=== PATIENT | female | born 1950 | race Caucasian/White ===

== ENCOUNTER → 2017-09-11 09:26 | Outpatient (CLI) | payer BC, SELFPAY ==
[2017-09-11 11:40] LABS: Alanine Aminotransferase 30 IU/L (9-52); Aspartate Aminotransferase 29 IU/L (14-36); Cholesterol 222 mg/dL (140-199); Triglycerides 56 mg/dL (35-150)
[2017-09-11 11:48] LABS: HDL Cholesterol 121 mg/dL (40-60); LDL Cholesterol Calculated 90 mg/dL (<100)
== END ==
PROVIDERS: PCP Internal Medicine; Visit Provider Internal Medicine
DX: E78.5 Hyperlipidemia, unspecified (principal)
CPT/HCPCS: 36415; 80061; 84450; 84460

== ENCOUNTER 2017-10-30 16:30 | Emergency (ER) | payer OTHER, SELFPAY ==
[2017-10-30] VITALS (7 sets, daily range): BP systolic 143–170; BP diastolic 88–102; PULSE 74–141; RESP 15–21; TEMP 36.9; O2SAT 96–100
--- NOTE | 2017-10-30 16:54 | DI.RAD.S_ITS ---
PROCEDURE: XR CHEST 2V INDICATIONS: shortness of breath TECHNIQUE: 2 views of the chest were acquired. COMPARISON: None. FINDINGS: Surgical changes and devices: None. Lungs and pleura: No pleural effusions or pneumothorax. Lungs are clear. Mediastinum: Mediastinal contours are normal. Heart size is normal. Bones and chest wall: No suspicious bony abnormalities. Soft tissues appear unremarkable. IMPRESSION: No radiographic evidence of acute cardiopulmonary pathology. Dictated by: Nghia Avalos M.D. on 10/30/2017 at 17:26 Approved by: Nghia Avalos M.D. on 10/30/2017 at 17:26
[2017-10-30 17:19] LABS: Add Manual Diff / Slide Review NO; Basophils Percent Auto 1.9 % (0-2); Eosinophils Percent Auto 2.3 % (2-4); Hematocrit 38.9 % (36-46); Lymphocytes Percent Auto 23.2 % (25-40); Mean Corpuscular HGB Conc 33.4 % (30-36); Mean Corpuscular Hemoglobin 30.8 PG (26-34); Mean Corpuscular Volume 92.4 fL (80-100); Neutrophils Absolute Auto 3400 /uL (3000-5900); Neutrophils Percent Auto 61.6 % (50-75); Platelet Count 211 X10^3/uL (150-400); Red Blood Cell Count 4.22 X10^6/uL (4.0-5.2); Red Cell Distribution Width 13.5 % (11.6-14.8); White Blood Cell Count 5.5 X10^3/uL (4.5-11.0)
[2017-10-30 17:20] LABS: Alanine Aminotransferase 24 IU/L (9-52); Albumin 4.6 g/dL (3.5-5.0); Albumin Globulin Ratio 1.6 (1.0-2.8); Alkaline Phosphatase 69 U/L (38-126); Aspartate Aminotransferase 26 IU/L (14-36); Bilirubin Total 0.2 mg/dL (0.2-1.3); Blood Urea Nitrogen 21 mg/dL (7-17); Calcium 9.4 mg/dL (8.4-10.2); Carbon Dioxide 24 mmol/L (22-32); Chloride 104 mmol/L (98-107); Estimated Glomerular Filt Rate > 60.0 mL/min (>60); Globulin 2.9 g/dL (1.7-4.1); Glucose 107 mg/dL (80-110); HEMOLYSIS < 15 (0-50); Potassium 4.2 mmol/L (3.4-5.1); Sodium 139 mmol/L (137-145); Total Protein 7.5 g/dL (6.3-8.2)
--- NOTE | 2017-10-30 17:20 | PC.NURSE ---
Pt converted to NSR with rate of 92. BP improved to 155/89. Dr jacobs in room to evaluate.
[2017-10-30 17:43] LABS: Magnesium 1.9 mg/dL (1.6-2.3)
[2017-10-30 17:52] LABS: Lactate (Lactic Acid) 1.5 mmol/L (0.7-2.1)
--- NOTE | 2017-10-30 17:53 | ED_ITS ---
HPI - Arrhythmia/Palpitations General Chief Complaint: Arrhythmia/Palpitations Stated Complaint: STATES HEART AFIB AND ELEVATED BP Time Seen by Provider: 10/30/17 16:40 Source: patient and family Mode of arrival: ambulatory Limitations: no limitations History of Present Illness HPI narrative: 67-year-old female with history of hypertension and paroxysmal AFib presents to the emergency department with chief complaint hypertension and a rapid heart rate. She is short of breath but denies any chest pain. She is not dizzy nor weak or lightheaded. She denies any changes in her medications nor excessive Related Data Home Medications Medication Instructions Recorded Confirmed atorvastatin 20 mg PO DAILY 10/30/17 10/30/17 carisoprodol 1 tab PO TID PRN 10/30/17 10/30/17 cetirizine [Zyrtec] 1 tab PO DAILY 10/30/17 10/30/17 cholecalciferol (vitamin D3) 1,000 unit PO DAILY 10/30/17 10/30/17 [Vitamin D3] coenzyme Q10 [CoQ-10] 100 mg PO DAILY 10/30/17 10/30/17 fluticasone 1 spray INTRANASAL DAILY PRN 10/30/17 10/30/17 gabapentin 1 cap PO TID 10/30/17 10/30/17 ibuprofen 800 mg PO TID PRN 10/30/17 10/30/17 lifitegrast [Xiidra] 1 drp OPHTHALMIC (EYE) Q12H 10/30/17 10/30/17 losartan 25 mg PO DAILY 10/30/17 10/30/17 meloxicam 1 tab PO DAILY 10/30/17 10/30/17 metoprolol succinate 1 tab PO DAILY 10/30/17 10/30/17 omega 5-nhx-lwf-fish oil [Fish Oil] 1,000 mg PO DAILY 10/30/17 10/30/17 zolpidem 10 mg PO BEDTIME 10/30/17 10/30/17 Allergies Allergy/AdvReac Type Severity Reaction Status Date / Time No Known Drug Allergies Allergy Verified 10/30/17 17:46 Review of Systems Review of Systems All systems reviewed & are unremarkable except as noted in HPI and below Constitutional Denies chills, Denies fever(s), Denies lethargy and Denies weakness Eyes Denies change in vision, Denies eye discharge, Denies irritation and Denies loss of vision ENT Ears, Nose, Mouth, and Throat: Denies change in voice, Denies neck pain and Denies sore throat Cardiovascular Reports chest pain, Reports irregular heart rhythm, Denies lightheadedness, Reports palpitations, Reports dyspnea, Denies dyspnea on exertion and Denies orthopnea Respiratory Denies cough, Reports dyspnea, Denies dyspnea on exertion and Denies wheezing Gastrointestinal Gastrointestinal: Denies abdominal pain, Denies change in bowel habits, Denies diarrhea, Denies nausea and Denies vomiting Genitourinary Denies hematuria, Denies flank pain, Denies urinary incontinence and Denies urinary urgency Musculoskeletal Denies neck pain Integumentary/Breasts Denies pruritus, Denies erythema, Denies rash and Denies wounds Neurologic Denies confusion, Denies loss of vision and Denies weakness Psychiatric Denies anxiety, Denies confusion, Denies depression, Denies homicidal ideation and Denies suicidal ideation Endocrine Reports palpitations Hematologic/Lymphatic Denies easy bruising Allergic/Immunologic Denies wheezing Exam Narrative Exam Narrative: GENERAL: This is a well-nourished, well-developed patient, in mild distress. HEAD: Atraumatic. Normocephalic. No temporal or scalp tenderness. EYES: Pupils equal round and reactive. Extraocular motions intact. No scleral icterus. No injection or drainage. ENT: Nose without bleeding, purulent drainage or septal hematoma. Throat without erythema, tonsillar hypertrophy or exudate. Uvula midline. Airway patent. NECK: Trachea midline. No JVD or lymphadenopathy. Supple, nontender, no meningeal signs. CARDIOVASCULAR: Tachycardic and irregular rhythm without murmurs, gallops, or rubs. RESPIRATORY: Clear to auscultation. Breath sounds equal bilaterally. No wheezes , rales, or rhonchi. GASTROINTESTINAL: Abdomen soft, non-tender, nondistended. No hepato-splenomegaly , or palpable masses. No guarding. EXTREMITIES: No clubbing, cyanosis, or edema. No joint tenderness, effusion, or edema noted. BACK: Nontender without deformity or crepitance. No flank tenderness. NEURO: AOx3. SKIN: No rash or erythema. Initial Vital Signs Initial Vital Signs: Vital Signs Temperature 98.4 F 10/30/17 16:41 Pulse Rate 141 H 10/30/17 16:41 Respiratory Rate 15 10/30/17 16:41 Blood Pressure 160/102 H 10/30/17 16:41 Pulse Oximetry 99 10/30/17 16:41 Course Orders Ordered: ED Orders 10/30/17 16:49 Complete Blood Count AUTO DIFF Stat Comprehensive Metabolic Panel Stat Magnesium Stat Thyroid Stimulating Hormone Stat 10/30/17 16:54 XR chest 2V Stat EKG-12 Lead Stat 10/30/17 17:19 Lactate (Lactic Acid) Stat Discontinued Medications Sodium Chloride (Normal Saline 0.9%) 1,000 mls @ 150 mls/hr IV CONT MARIA C Last Admin: 10/30/17 19:29 Dose: Reevaluation(s) Reevaluation #1: Patient had spontaneous conversion of AFib and is now a normal sinus rhythm. Patient's symptoms have all completely resolved Consultations Consultation #1: Discussion with patient's primary care provider regarding alterations in medications, Dr. dash recommends increasing metoprolol from 100 to 150 mg daily and calling for follow-up for the office Vital Signs - 8 hr 10/30/17 16:41 10/30/17 17:04 10/30/17 17:20 Temperature 98.4 F Pulse Rate 141 H 120 H 88 Respiratory Rate 15 17 17 Blood Pressure 160/102 H Blood Pressure [Right Arm] 145/94 H 155/92 H Pulse Oximetry 99 100 100 10/30/17 18:01 10/30/17 18:30 10/30/17 19:07 Temperature Pulse Rate 85 77 74 Respiratory Rate 16 21 20 Blood Pressure Blood Pressure [Right Arm] 143/91 H 155/88 H 170/88 H Pulse Oximetry 96 98 97 10/30/17 19:21 Temperature Pulse Rate 82 Respiratory Rate 18 Blood Pressure Blood Pressure [Right Arm] 170/88 H Pulse Oximetry 100 MDM - Arrhythmia/Palpitations Differential Diagnosis Differential diagnosis: Likely palpitations, anxiety, sinus tachycardia, artial fibrillation and artial flutter Medical Records Attestation: I reviewed the patient's medical records. Lab Data Attestation: I reviewed the patient's lab results. Result diagrams: 10/30/17 16:49 10/30/17 16:49 Lab Results 10/30/17 10/30/17 10/30/17 Range/Units 16:49 16:49 16:49 WBC 5.5 (4.5-11.0) X10^3/uL RBC 4.22 (4.0-5.2) X10^6/uL Hgb 13.0 (12.0-16.0) g/dL Hct 38.9 (36-46) % MCV 92.4 (80-100) fL MCH 30.8 (26-34) PG MCHC 33.4 (30-36) % RDW 13.5 (11.6-14.8) % Plt Count 211 (150-400) X10^3/uL Neut % (Auto) 61.6 (50-75) % Lymph % (Auto) 23.2 L (25-40) % [place] % (Auto) 11.0 (3-14) % Eos % (Auto) 2.3 (2-4) % Baso % (Auto) 1.9 (0-2) % Neut # (Auto) 3400 (6403-2970) /uL Sodium 139 (137-145) mmol/L Potassium 4.2 (3.4-5.1) mmol/L Chloride 104 (98-107) mmol/L Carbon Dioxide 24 (22-32) mmol/L BUN 21 H (7-17) mg/dL Creatinine 0.60 (0.52-1.04) mg/dL Estimated GFR > 60.0 (>60) mL/min BUN/Creatinine Ratio 35.0 H (6-22) Glucose 107 (80-110) mg/dL Lactate (0.7-2.1) mmol/L Calcium 9.4 (8.4-10.2) mg/dL Magnesium 1.9 (1.6-2.3) mg/dL Total Bilirubin 0.2 (0.2-1.3) mg/dL AST 26 (14-36) IU/L ALT 24 (9-52) IU/L Alkaline Phosphatase 69 (38-126) U/L Total Protein 7.5 (6.3-8.2) g/dL Albumin 4.6 (3.5-5.0) g/dL Globulin 2.9 (1.7-4.1) g/dL Albumin/Globulin Ratio 1.6 (1.0-2.8) TSH Cancelled 10/30/17 10/30/17 Range/Units 16:49 17:19 WBC (4.5-11.0) X10^3/uL RBC (4.0-5.2) X10^6/uL Hgb (12.0-16.0) g/dL Hct (36-46) % MCV (80-100) fL MCH (26-34) PG MCHC (30-36) % RDW (11.6-14.8) % Plt Count (150-400) X10^3/uL Neut % (Auto) (50-75) % Lymph % (Auto) (25-40) % Providence % (Auto) (3-14) % Eos % (Auto) (2-4) % Baso % (Auto) (0-2) % Neut # (Auto) (7477-1726) /uL Sodium (137-145) mmol/L Potassium (3.4-5.1) mmol/L Chloride (98-107) mmol/L Carbon Dioxide (22-32) mmol/L BUN (7-17) mg/dL Creatinine (0.52-1.04) mg/dL Estimated GFR (>60) mL/min BUN/Creatinine Ratio (6-22) Glucose (80-110) mg/dL Lactate 1.5 (0.7-2.1) mmol/L Calcium (8.4-10.2) mg/dL Magnesium (1.6-2.3) mg/dL Total Bilirubin (0.2-1.3) mg/dL AST (14-36) IU/L ALT (9-52) IU/L Alkaline Phosphatase (38-126) U/L Total Protein (6.3-8.2) g/dL Albumin (3.5-5.0) g/dL Globulin (1.7-4.1) g/dL Albumin/Globulin Ratio (1.0-2.8) TSH 1.83 Imaging Data Chest x-ray: Radiologist's impression: PROCEDURE: XR CHEST 2V INDICATIONS: shortness of breath TECHNIQUE: 2 views of the chest were acquired. COMPARISON: None. FINDINGS: Surgical changes and devices: None. Lungs and pleura: No pleural effusions or pneumothorax. Lungs are clear. Mediastinum: Mediastinal contours are normal. Heart size is normal. Bones and chest wall: No suspicious bony abnormalities. Soft tissues appear unremarkable. IMPRESSION: No radiographic evidence of acute cardiopulmonary pathology. Dictated by: Nghia Avalos M.D. on 10/30/2017 at 17:26 Approved by: Nghia Avalos M.D. on 10/30/2017 at 17:26 ECG Data Attestation: I personally reviewed and interpreted this ECG as follows: Prior ECG tracings: not available for review Interpretation: EKG 1: Rapid AFib versus 2-1 flutter and the 140s with ST depressions. Preparations for cardioversion in place EKG 2: Normal sinus rhythm in the 70s. Ischemic changes have resolved Discharge Plan Departure Patient Disposition: Home, Self-Care Clinical Impression: Atrial fibrillation Discharge Date/Time: 10/30/17 19:29 Interventions: ED Discharge Assessment Last Done: 10/30/17 19:29 Instructions: DI for Atrial Fibrillation Activity Restrictions/Additional Instructions: *You have been diagnosed with [ hypertension and rapid atrial fibrillation ] *What to do: *Take medications as directed: Please increase her metoprolol from 100 mg daily to 150 mg daily. You will need to break 100 tablets in half. *Follow up with your primary care provider in 2-3 days, call for an appointment. Let them know you were seen in the Emergency Department and that we ask that you be seen in follow up *Return to ER if you should have any new, worsening or concerning symptoms , such as [ increasing chest pain, rapid rate, dizziness or lightheadedness] Prescriptions: No Action carisoprodol 350 mg tablet 1 tab PO TID PRN (Reason: Pain, Moderate) RF: 0 atorvastatin 20 mg tablet 20 mg PO DAILY RF: 0 ibuprofen 800 mg tablet 800 mg PO TID PRN (Reason: Pain, Moderate) RF: 0 metoprolol succinate 50 mg tablet extended release 24 hr 1 tab PO DAILY RF: 0 meloxicam 15 mg tablet 1 tab PO DAILY RF: 0 losartan 25 mg tablet 25 mg PO DAILY RF: 0 gabapentin 300 mg capsule 1 cap PO TID RF: 0 zolpidem 10 mg tablet 10 mg PO BEDTIME RF: 0 fluticasone 50 mcg/actuation spray,suspension 1 spray Intranasal DAILY PRN (Reason: Congestion) RF: 0 lifitegrast [Xiidra] 5 % dropperette 1 drp ophthalmic (eye) Q12H RF: 0 cetirizine [Zyrtec] 10 mg Tablet 1 tab PO DAILY RF: 0 cholecalciferol (vitamin D3) [Vitamin D3] 1,000 unit Capsule 1,000 unit PO DAILY RF: 0 coenzyme Q10 [CoQ-10] 100 mg Capsule 100 mg PO DAILY RF: 0 omega 5-jrx-nxl-fish oil [Fish Oil] 1,000 mg (120 mg-180 mg) Capsule 1,000 mg PO DAILY RF: 0 Referrals: Dolores Dash MD [Primary Care Provider] -
[2017-10-30 18:23] LABS: Thyroid Stimulating Hormone 1.83 uIU/mL (0.47-4.68)
== END 2017-10-30 19:29 | disposition home or self-care (01) ==
PROVIDERS: Emergency Provider Emergency Medicine; PCP Internal Medicine
DX: I48.91 Unspecified atrial fibrillation (principal)
CPT/HCPCS: 36591; 71046; 80053; 81003; 83605; 83735; 84443; 85025; 93005; 93041; 99283; 99285

== ENCOUNTER → 2017-12-12 08:23 | Outpatient (CLI) | payer OTHER, SELFPAY ==
--- NOTE | 2017-12-12 | DI.ECHO.S_ITS ---
[facility]---------+ [facility] +---------+ : : [address] [place] : : : : [id number] : : : : Phone: [phone]+ Echocardiogram Report + + :Name: JAMIE SALGADO Study Date: 12/12/2017 Height: 67 in : :[facility] Exam Location: [facility] Weight: 146 lb : : Gender: Female BSA: 1.8 m2 : :: 1950 Age: 67 yrs BP: 110/80 mmHg: :Reason For Study: TACHYCARDIA : :Ordering Physician: Geetha : :Hardy Performed By: Nathalia Tenorio : :Referring: GEETHA SMITH : + + Interpretation Summary There is mild concentric left ventricular hypertrophy. The left ventricular ejection fraction is normal. The ejection fraction is estimated to be 55-60%. There are no focal wall motion abnormalities. Assessment of diastolic parameters indicates a relaxation abnormality of the left ventricle, consistent with normal filling pressures. The right ventricle is normal in size and function. The right ventricular systolic pressure is estimated at least 28 mmHg assuming a right atrial pressure of 8 mm Hg. The left atrium is moderately dilated. There is mild mitral regurgitation. The aortic root is normal size. Procedure: A two-dimensional transthoracic echocardiogram with color flow and Doppler was performed. The study quality was technically adequate. There is no prior echocardiogram noted for this patient. The patient was in sinus bradycardia with heart rates between 53 and 66 bpm during the exam. Left Ventricle: The left ventricle is normal in size. There is mild concentric left ventricular hypertrophy. The left ventricular ejection fraction is normal. The ejection fraction is estimated to be 55-60%. There are no focal wall motion abnormalities. Assessment of diastolic parameters indicates a relaxation abnormality of the left ventricle, consistent with normal filling pressures. Right Ventricle: The right ventricle is normal in size and function. Atria: The left atrium is moderately dilated. Right atrial size is normal. There is no Doppler evidence for an atrial septal defect. Mitral Valve: The mitral valve is normal. There is mild mitral regurgitation. Aortic Valve: The aortic valve is normal in structure and function. There is trace aortic regurgitation. Tricuspid Valve: The tricuspid valve is normal. There is a trace or physiologic amount of tricuspid regurgitation. The right ventricular systolic pressure is estimated at least 28 mmHg assuming a right atrial pressure of 8 mm Hg. Pulmonic Valve: The pulmonic valve leaflets are thin and pliable; valve motion is normal. There is trace pulmonic regurgitation. Multiple jets. There is no other significant valvular heart disease. Great Vessels: The aortic root is normal size. The ascending aorta is normal in size. The aortic arch is normal in size. The pulmonary artery is normal size. The IVC is dilated (diameter is greater than 2.1 cm) yet it collapses greater than 50% with a sniff. This suggests a right atrial pressure of 8 mm Hg. Pericardium/ Pleura There is no pericardial effusion. There is no pleural effusion. MMode/2D Measurements & Calculations LVIDd: 4.3 cm LVOT diam: 2.1 cm LVIDs: 2.9 cm Ao root diam: 3.6 cm FS: 32.7 % asc Aorta Diam: 3.4 cm EPSS: 0.21 cm Ao Arch Diam (Prox Trans): 2.6 cm IVSd: 1.3 cm LVPWd: 1.3 cm LV negrete. diameter/BSA (cm/m^2): 2.5 LV sys. diameter/BSA (cm/m^2): 1.6 LA A2 area: 21.7 cm2 RA long axis: 4.8 cm LA A4 area: 24.4 cm2 RA area: 16.3 cm2 LA length (vol): 5.8 cm RA vol: 47.2 ml LA vol: 77.3 ml RA : 26.7 ml/m2 LA vol index: 43.7 ml/m2 IVC diam: 2.3 cm RVD1 (basal): 3.7 cm RVD2 (mid): 2.6 cm TAPSE: 1.5 cm Doppler Measurements & Calculations Ao V2 max: 82.8 cm/sec LVOT Max Yusuf: 78.3 cm/sec Ao V2 mean: 53.6 cm/sec LV V1 max P.5 mmHg Ao max P.7 mmHg LV V1 VTI: 14.5 cm Ao mean P.3 mmHg POLO(I,D): 2.9 cm2 Ao V2 VTI: 17.2 cm POLO(V,D): 3.3 cm2 sev ratio: 0.84 POLO indexed to BSA (cm^2/m^2): 1.6 MV E max yusuf: 66.6 cm/sec TR max yusuf: 223.4 cm/sec MV A max yusuf: 82.6 cm/sec TR max P.0 mmHg MV E/A: 0.81 PA V2 max: 59.9 cm/sec Med Peak E' Yusuf: 4.8 cm/sec PA V2 mean: 42.1 cm/sec E/E' med: 13.8 PA mean P.81 mmHg Lat Peak E' Yusuf: 5.1 cm/sec PA pr(Accel): 11.6 mmHg E/E' lat: 13.2 E/e' average: 13.5 MV dec time: 0.15 sec MV P1/2t: 45.6 msec MV P1/2t max yusuf: 66.9 cm/sec MVA(P1/2t): 4.8 cm2 Reading Physician:ANUSHKA
== END ==
PROVIDERS: PCP Internal Medicine; Visit Provider Internal Medicine
DX: I34.0 Nonrheumatic mitral (valve) insufficiency (principal); R00.0 Tachycardia, unspecified
CPT/HCPCS: 93306

== ENCOUNTER → 2018-10-01 13:35 | Outpatient (CLI) | payer OTHER, SELFPAY | PROVIDERS: PCP Internal Medicine; Visit Provider Internal Medicine | DX: M81.0 Age-related osteoporosis without current pathological fracture (principal); Z78.0 Asymptomatic menopausal state | CPT/HCPCS: 77080 ==

== ENCOUNTER → 2018-10-08 09:47 | Outpatient (CLI) | payer OTHER, SELFPAY ==
[2018-10-08 12:28] LABS: Vitamin D 25 Hydroxy (D3) 42.3 ng/mL (30.0-100.0)
[2018-10-08 17:51] LABS: Alanine Aminotransferase 30 IU/L (9-52); Aspartate Aminotransferase 33 IU/L (14-36); Blood Urea Nitrogen 20 mg/dL (7-17); Calcium 9.6 mg/dL (8.4-10.2); Carbon Dioxide 27 mmol/L (22-32); Chloride 104 mmol/L (98-107); Cholesterol 226 mg/dL (140-199); Estimated Glomerular Filt Rate > 60.0 mL/min (>60); Glucose 104 mg/dL (80-110); HDL Cholesterol 83 mg/dL (40-60); HEMOLYSIS < 15 (0-50); LDL Cholesterol Calculated 121 mg/dL (<100); Potassium 4.2 mmol/L (3.4-5.1); Sodium 141 mmol/L (137-145); Triglycerides 112 mg/dL (35-150)
== END ==
PROVIDERS: PCP Internal Medicine; Visit Provider Internal Medicine
DX: E78.5 Hyperlipidemia, unspecified (principal); M81.0 Age-related osteoporosis without current pathological fracture; Z00.00 Encounter for general adult medical examination without abnormal findings
CPT/HCPCS: 36415; 80048; 80061; 82306; 84450; 84460

== ENCOUNTER → 2018-10-09 16:19 | Outpatient (CLI) | payer OTHER, SELFPAY ==
--- NOTE | 2018-10-09 16:23 | DI.MG.S_ITS ---
BILATERAL DIGITAL SCREENING MAMMOGRAM 3D/2D WITH CAD: 10/09/2018 CLINICAL: Routine screening. Comparison is made to exams dated: 03/21/2016 mammogram, 03/19/2014 mammogram, and 04/13/2011 mammogram - [facility]. The tissue of both breasts is predominantly fatty. Current study was also evaluated with a Computer Aided Detection (CAD) system. No significant masses, calcifications, or other findings are seen in either breast. There has been no significant interval change. IMPRESSION: NEGATIVE There is no mammographic evidence of malignancy. A 1 year screening mammogram is recommended. This exam was interpreted at Station ID: [id number]. NOTE: For mammograms, a report in lay terms will be sent to the patient. Approximately 15% of breast malignancies will not be visualized mammographically. In the management of a palpable breast mass, a negative mammogram must not discourage biopsy of a clinically suspicious lesion. Electronically Signed By: Guru singer/adi:10/09/2018 17:28:41 letter sent: Normal Exam ACR BI-RADS Category 1: Negative [id number]
== END ==
PROVIDERS: PCP Internal Medicine; Visit Provider Internal Medicine
DX: Z12.31 Encounter for screening mammogram for malignant neoplasm of breast (principal)
CPT/HCPCS: 77063; 77067

== ENCOUNTER → 2018-10-18 12:10 | Outpatient (CLI) | payer OTHER, SELFPAY ==
[2018-10-18 12:37] LABS: BUN Creatinine Ratio 24.3 (6-22); Blood Urea Nitrogen 17 mg/dL (7-17); Estimated Glomerular Filt Rate > 60.0 mL/min (>60)
== END ==
PROVIDERS: PCP Internal Medicine; Visit Provider Internal Medicine
DX: I10 Essential (primary) hypertension (principal)
CPT/HCPCS: 36415; 82565; 84520

== ENCOUNTER → 2018-11-05 14:55 | Oncology outpatient (ONC) | payer OTHER, SELFPAY ==
[2018-11-05] MEDS: ZOLEDRONIC ACID 5 MG in SODIUM CHLORIDE 0.9% 100 ML 318.75 ML IV (15:37)
[2018-11-05 15:56] VITALS: BP 218/100; PULSE 71; RESP 20; TEMP 36.8; O2SAT 100
[2018-11-05 16:15] VITALS: BP 196/96
--- NOTE | 2018-11-05 16:33 | PC.NURSE ---
Pt had elevated BP 198/98, pt reported missing a dose of her prescribed HTN medication. Pt was instructed to take Losartan and Metoprolol as prescribed when she got home. pt reported having blurred vision earlier in the day. Pt was educated on when to seek emergent medical attention including if symptoms return, dizziness, headache, blurred vision, pt verbalized understanding.
== END ==
LOC: ONC 14:55
PROVIDERS: PCP Internal Medicine; Visit Provider Internal Medicine
DX: M81.0 Age-related osteoporosis without current pathological fracture (principal)
CPT/HCPCS: 96365; J3489

== ENCOUNTER → 2018-11-12 12:00 | Outpatient (CLI) | payer OTHER, SELFPAY ==
[2018-11-12 13:19] LABS: BUN Creatinine Ratio 21.4 (6-22); Blood Urea Nitrogen 15 mg/dL (7-17); Calcium 9.7 mg/dL (8.4-10.2); Carbon Dioxide 29 mmol/L (22-32); Chloride 100 mmol/L (98-107); Estimated Glomerular Filt Rate > 60.0 mL/min (>60); Glucose 175 mg/dL (80-110); HEMOLYSIS < 15 (0-50); Potassium 4.2 mmol/L (3.4-5.1); Sodium 139 mmol/L (137-145)
== END ==
PROVIDERS: Family Provider Internal Medicine; PCP Internal Medicine; Visit Provider Hospitalist
DX: I10 Essential (primary) hypertension (principal)
CPT/HCPCS: 36415; 80048

== ENCOUNTER → 2018-11-29 10:55 | Outpatient (CLI) | payer OTHER, SELFPAY ==
[2018-11-29 15:31] LABS: Collection Time Urine 24 Hours; Creatinine 24 Hour Urine 1226 mg/day (800-1800); Creatinine Urine Random 87.6 mg/dL; Total Volume Urine 1400 mL
[2018-12-13 08:47] LABS: Total Volume 1400
[2018-12-13 10:33] LABS: Total Volume: 1400
== END ==
PROVIDERS: Family Provider Internal Medicine; PCP Internal Medicine; Visit Provider Physician Assistant
DX: I10 Essential (primary) hypertension (principal)
CPT/HCPCS: 82384; 82570; 83835

== ENCOUNTER → 2019-06-27 10:11 | Outpatient (CLI) | payer OTHER, SELFPAY ==
[2019-06-27 12:22] LABS: Alanine Aminotransferase 24 IU/L (<35); Albumin 4.3 g/dL (3.5-5.0); Albumin Globulin Ratio 1.3 (1.0-2.8); Alkaline Phosphatase 57 U/L (38-126); Aspartate Aminotransferase 30 IU/L (14-36); BUN Creatinine Ratio 21.5 (6-22); Bilirubin Total 0.5 mg/dL (0.2-1.3); Blood Urea Nitrogen 17 mg/dL (7-17); Calcium 9.1 mg/dL (8.4-10.2); Carbon Dioxide 30 mmol/L (22-32); Chloride 102 mmol/L (98-107); Cholesterol 199 mg/dL (140-199); Estimated Glomerular Filt Rate > 60.0 mL/min (>60); Globulin 3.3 g/dL (1.7-4.1); Glucose 101 mg/dL (80-110); HDL Cholesterol 86 mg/dL (40-60); HEMOLYSIS < 15 (0-50); LDL Cholesterol Calculated 85 mg/dL (<100); Potassium 4.1 mmol/L (3.4-5.1); Sodium 137 mmol/L (137-145); Total Protein 7.6 g/dL (6.3-8.2); Triglycerides 142 mg/dL (35-150)
== END ==
PROVIDERS: Family Provider Internal Medicine; PCP Internal Medicine; Referring Provider Internal Medicine; Visit Provider Internal Medicine
DX: I10 Essential (primary) hypertension (principal)
CPT/HCPCS: 36415; 80053; 80061

== ENCOUNTER → 2019-09-26 11:19 | Outpatient (CLI) | payer OTHER, SELFPAY ==
[2019-09-27 10:14] LABS: COVID19 Sendout NOT DETECTED (Not Detect)
== END ==
PROVIDERS: Family Provider Internal Medicine; PCP Internal Medicine; Visit Provider Physician Assistant
DX: Z01.812 Encounter for preprocedural laboratory examination (principal)
CPT/HCPCS: 87635

== ENCOUNTER 2019-09-29 06:41 | Day surgery (SDC) | payer OTHER, SELFPAY ==
[2019-09-24 08:02] VITALS: BMI 23.3
[2019-09-29] VITALS (38 sets, daily range): BP systolic 93–163; BP diastolic 38–84; PULSE 55–89; RESP 11–20; TEMP 35.9–36.9; O2SAT 90–100; BMI 22.9
[2019-09-29] MEDS: LACTATED RINGERS 1,000 ML 42 ML IV ×2 (07:29→13:44)
--- NOTE | 2019-09-29 08:15 | PM.PREOP ---
Pre-operative Note COVID-19 COVID-19 status: Negative Result date/Date tested (Pos, Neg/Pending): 09/26/19 Interval Note History & Physical reviewed/Exam performed by Physician: Yes Changes to H&P: No
[2019-09-29] MEDS: CEFAZOLIN 2 GM/100 ML FROZ.PIGGY IV ×2 (08:34→14:20)
--- NOTE | 2019-09-29 08:47 | SUR.OPER ---
Lithotomy on padded OR bed, head on pillow, arms secured on padded arm boards at <90 degrees abduction. Legs secured in padded yellow fins stirrups.
[2019-09-29] MEDS: BUPIVACAINE 0.5% W/ EPI (PF) 30 ML VIAL 10 ML INJ (08:54)
[2019-09-29] MEDS: ACETAMINOPHEN IV 1,000 MG/100 ML VIAL 400 MG IV (09:08)
--- NOTE | 2019-09-29 09:53 | SUR.OPER ---
Dr. Benz placed Kunz Catheter at 0953. 16 Fr latex
--- NOTE | 2019-09-29 10:21 | PM.OP.1 ---
Operative Date/Time/Diagnoses Date of procedure: 09/29/19 Time of procedure: 10:21 Pre-op diagnosis: Symptomatic cystocele with rectocele and uterine prolapse Post-op diagnosis: same Procedure & Clinicians Procedure: Anterior and posterior repair with sacrospinous ligament fixation Same procedure as scheduled: Yes Indications: Symptomatic cystocele and uterine prolapse Surgeon: Conchis Benz Commissions Coordinator: Lizbeth Carver Click Yes if Unassisted: No Anesthesia Type: General Operative Notes Findings: Uterine prolapse with cystocele and minimal rectocele Closure Type: primary Specimen(s): none sent Applied: catheter (Kunz) and other (Vaginal packing) Estimated Blood Loss (mL): 50 Blood products transfused: none Procedure in detail: Patient was brought to the operating room where she underwent general anesthesia. She was placed in low Yellofin stirrups and prepped and draped in the usual sterile fashion. Warming was in place. 2 g of Ancef were in prior to beginning of the case. Pulsatile stockings were in place and functional. A check system was reviewed with the staff in the room prior to beginning the case. A Kunz catheter was placed. The area of the cystocele and the rectocele was injected with a dilute solution of Marcaine with epinephrine. Incision was made over the cystocele with a scalpel. Dissection was undertaken laterally with sharp and blunt dissection. The cystocele caliber was decreased with a pursestring suture of 2 0 Vicryl. Plicating sutures of 0 Vicryl suture were placed followed by a layer of 2 0 Vicryl plicating sutures. The vaginal incision was repaired with running 2 0 Vicryl suture. Next a wedge-shaped section of tissue was taken out of the posterior fourchette with a scalpel. An incision was made over the rectocele with a scalpel. Dissection was undertaken laterally. 0 Prolene suture with the Capio passer was placed through the uterosacral ligament on the right side and sutured to the underside of the cervix. A 2nd suture of 0 Monodek was also placed through the uterosacral ligament and the underside of the vaginal mucosa on the left. A finger was placed in the rectum to be sure there were no sutures placed through the rectal mucosa. The uterosacral sutures were tightened down. Plication sutures of suture of 2 0 Vicryl. The incision was closed with 2 0 Vicryl suture building up the perineal body. Vaginal packing was placed. Patient went to recovery room in good condition. Complications: none Post-operative Condition: stable Disposition: same day surgery Plan for aftercare: Vaginal packing and Kunz will be removed in 6 hours than patient will be discharged home once documented able to urinate post Kunz removal
[2019-09-29] MEDS: HYDROMORPHONE 2 MG INJ IV ×6 (10:26→16:33)
[2019-09-29] MEDS: fentaNYL 100 MCG/2 ML INJ IV ×2 (10:27→10:35)
--- NOTE | 2019-09-29 10:33 | SUR.PHASEI ---
covering for break relief, pain currently 10/16
--- NOTE | 2019-09-29 10:51 | SUR.PHASEI ---
O2 at 3LNP, desat when dozing. Reported to A Polly, RN
[2019-09-29] MEDS: OXYCODONE IR 5 MG TABLET PO ×2 (11:19→22:26)
--- NOTE | 2019-09-29 11:21 | SUR.PHASEI ---
Gave patient IV and po pain medication for c/o pain. Patient awake and tolerating po. Ale-pad has scant amount of serous drainage.
[2019-09-29] MEDS: LACTATED RINGERS 1,000 ML 100 ML IV ×3 (12:29→17:38)
[2019-09-29] MEDS: HYDROCODONE/ACET 5/325 TABLET 2 TAB PO ×2 (13:22→18:42)
--- NOTE | 2019-09-29 13:32 | PC.NURSE ---
Day shift note: 1215: Received patient from PACU by Toya INFANTE to room 222. Patient awake, alert, and pleasant. VSS upon arrival, on RA, O2 sat 98%. During packing check with Toya INFANTE, noted with blood drainage to pad and linen, noted intermittent trickling from vagina opening. per Toya INFANTE, Dr. Benz notified by message. Upon reassessment, this RN noted continued trickling of bloody drainage and completely soaked pad. No dizziness by patient. VSS. Dr. Benz, called to office by Humble INFANTE, notified regarding clinical status. Dr. Benz at bedside shortly after call. 1330: Patient back to OR by Estrella IFNANTE.
[2019-09-29] MEDS: METOCLOPRAMIDE 10 MG/2 ML INJ IV (13:53)
[2019-09-29] MEDS: FAMOTIDINE 20 MG/50 ML PIGGYBACK 200 MG IV (13:53)
[2019-09-29] MEDS: fentaNYL 100 MCG/2 ML INJ 50 MCG IV (14:02)
--- NOTE | 2019-09-29 14:06 | SUR.HOLD ---
Pt to OPD 2 for surgery, A&O, c/o surgical pain 11/16. Resp unlabored, Rx given, continuous pulse oximeter on prior to IV pain med. Sat 93%, HR 65. Dr. Dallas talking with patient.
--- NOTE | 2019-09-29 14:13 | PM.PREOP ---
Pre-operative Note COVID-19 COVID-19 status: Negative Result date/Date tested (Pos, Neg/Pending): 09/26/19 Interval Note History & Physical reviewed/Exam performed by Physician: Yes Changes to H&P: Yes H&P completed within 30 days and has changed as indicated here:: Patient bleeding more than appropriate postop
--- NOTE | 2019-09-29 14:31 | SUR.OPER ---
Lithotomy on padded OR bed, head on pillow, arms secured on padded arm boards at <90 degrees abduction. Legs secured in padded yellow fins stirrups.
[2019-09-29] MEDS: TRANEXAMIC ACID 1,000 MG VIAL 1000 MG IV (14:50)
--- NOTE | 2019-09-29 15:39 | PM.OP.1 ---
Operative Date/Time/Diagnoses Date of procedure: 09/29/19 Time of procedure: 15:39 Pre-op diagnosis: Excessive bleeding postop Post-op diagnosis: same Procedure & Clinicians Procedure: Incision opened, Bovie used to cauterize the bleeding blood vessel, Surgicel placed, incision closed with vaginal packing replaced Same procedure as scheduled: Yes Indications: Excessive bleeding postop Surgeon: Conchis Benz Click Yes if Unassisted: Yes Anesthesia Type: General Operative Notes Findings: No specific active bleeding site seen. Generalized oozing. Closure Type: primary Specimen(s): none sent Applied: catheter and other (Vaginal packing) Estimated Blood Loss (mL): 60 Blood products transfused: none Procedure in detail: Patient was brought to the operating room where she underwent general anesthesia. She was placed in low Yellofin stirrups and prepped and draped in the usual sterile fashion. Kunz was already in place. Additional 2 g of Ancef were given prior to beginning the case. The soaked vaginal packing was removed. The incision was opened. There was no specific site that could be definitively the cause of bleeding. Surgicel was placed in the deep end of the incision. Patient received IV tranxenic acid. The incision was reclosed with plicating sutures of 0 Vicryl suture over the rectocele and the vaginal incision closed with 2 0 Vicryl suture. The perineal body was built up with 2 layers of 2 0 Vicryl suture. Vaginal packing was replaced. Patient went to recovery room in stable condition. Complications: none Post-operative Condition: stable Disposition: Acute Care Plan for aftercare: Packing will be left in until tomorrow morning. Continue to monitor for bleeding.
--- NOTE | 2019-09-29 15:49 | SUR.PHASEI ---
Assumed care. Patient denied pain. No active vaginal bleeding noted.
[2019-09-29 15:52] LABS: Hematocrit 34.8 % (36-46); Hemoglobin 11.6 g/dL (12.0-16.0)
--- NOTE | 2019-09-29 15:58 | SUR.PHASEI ---
Report called to Jyothi
--- NOTE | 2019-09-29 17:12 | SUR.PHASEI ---
Patient transferred to the floor. Report given to Jyothi. VS stable. IV saline locked. No active vaginal bleeding noted, packing in place.
[2019-09-29] MEDS: MORPHINE 4 MG/ML INJ IV (19:54)
[2019-09-29] MEDS: LOSARTAN 25 MG TABLET PO (21:00)
[2019-09-29] MEDS: DOCUSATE 250 MG CAPSULE PO (21:08)
[2019-09-29] MEDS: ATORVASTATIN 20 MG TABLET 40 MG PO (21:08)
[2019-09-29] MEDS: ONDANSETRON 4 MG/2 ML INJ IV (21:58)
--- NOTE | 2019-09-29 23:06 | PC.NURSE ---
Evening Shift Note- Patient arrived back to room from pacu at 1700. Patient alert and oriented and able to make needs known to staff. Patient pleasent, calm, and cooperative with care. Kunz cath patent and set to gravity to drain. clear yellow urine noted. Kpad provided for abdominal cramping. Peripad in place and checked often. safety measures in place. call abel and phone within reach. will continue to monitor.
[2019-09-29] MEDS: ZOLPIDEM 5 MG TABLET PO (23:51)
[2019-09-30] MEDS: ZOLPIDEM 5 MG TABLET PO (00:29)
[2019-09-30] MEDS: LACTATED RINGERS 1,000 ML 100 ML IV (02:07)
[2019-09-30] MEDS: carisoprodoL 350 MG TABLET PO (02:07)
[2019-09-30] MEDS: GABAPENTIN 300 MG CAPSULE PO (02:07)
[2019-09-30 04:45] VITALS: BP 141/97; PULSE 73; RESP 18; TEMP 36.7; O2SAT 97
[2019-09-30] MEDS: OXYCODONE IR 10 MG TABLET PO (04:51)
[2019-09-30] MEDS: AMLODIPINE 5 MG TABLET PO (04:51)
[2019-09-30 05:25] LABS: Add Manual Diff / Slide Review NO; Basophils Absolute Auto 0 /uL (0-100); Basophils Percent Auto 0.5 % (0-2); Eosinophils Absolute Auto 0 /uL (0-450); Eosinophils Percent Auto 0.2 % (2-4); Hematocrit 29.9 % (36-46); Lymphocytes Absolute Auto 1000 /uL (1100-4500); Lymphocytes Percent Auto 12.2 % (25-40); Mean Corpuscular HGB Conc 33.5 % (30-36); Mean Corpuscular Hemoglobin 31.3 PG (26-34); Mean Corpuscular Volume 93.5 fL (80-100); Monocytes Absolute Auto 1100 /uL (0-900); Monocytes Percent Auto 13.4 % (3-14); Neutrophils Absolute Auto 6300 /uL (1500-7000); Neutrophils Percent Auto 73.7 % (50-75); Platelet Count 176 X10^3/uL (150-400); Red Cell Distribution Width 13.3 % (11.6-14.8); White Blood Cell Count 8.6 X10^3/uL (4.5-11.0)
--- NOTE | 2019-09-30 05:57 | PC.NURSE ---
Pt doing well. Dr. Benz removed vaginal packing and riuz around 0415 this morning. Some small amount of bleeding after. Pt needs a post-void residual still. Some mild pain to lower abdomen relieved with oxycodone
[2019-09-30] MEDS: DOCUSATE 250 MG CAPSULE PO (09:26)
[2019-09-30] MEDS: METOPROLOL ER 50 MG TABLET 100 MG PO (09:26)
[2019-09-30] MEDS: OXYCODONE IR 5 MG TABLET PO (09:55)
[2019-09-30 11:55] VITALS: O2SAT 99
--- NOTE | 2019-09-30 11:58 | PC.NURSE ---
@1000;Ale-pad 50%; 300 cc pink urine; PO oxycodone for mild pain and d/c transfer; d/c instructions given to patient and spous; pt escorted via wheelchair to private auto with personal belongings in hand.
--- NOTE | 2019-09-30 16:29 | PM.DS.1 ---
History of Present Illness History of Present Illness Date Patient Seen: 09/30/19 Time Patient Seen: 06:15 Chief complaint: [id number] A&P REPAIR W/SACROSPINOUS LIG FIX *OPB Discharge Providers Provider Discharge Date: 09/30/19 Primary care physician: Dolores Dash MD Discharge provider: Conchis Benz MD Summary Hospital Course Discharge Diagnosis: Partial uterovaginal prolapse cystocele predominant, status post anterior and posterior repair with sacrospinous ligament fixation, return to operating room for excessive bleeding of incision Hospital Course: Patient underwent an anterior and posterior repair with sacrospinous ligament fixation on 09/29/2019. Several hours after the procedure the patient had significant bleeding from her vagina around her vaginal packing, and increasing rectal pain. She was taken back to the operating room and the incision opened. Approximately 60 cc of clot was removed from the site. No clear cause of the bleeding was found but Surgicel placed, patient was given TXA, and the vagina was repacked. Patient did well after the procedure. The following morning the packing and Kunz catheter were removed. Patient was able to urinate. She was ambulatory and pain was under control. She was passing gas. Status at Discharge Cognitive/behavioral status at discharge: oriented Functional status at discharge: independent ambulation Overall status at discharge: patient is progressing back to baseline Time Spent with Patient Time spent: Less than 30 minutes Exam Vital Signs (past 8 hours): - 09/30/19 11:55 Pulse Oximetry 99 Oxygen Delivery Method Room Air Oxygen Flow Rate 0 Narrative Exam Narrative: Abdomen was soft, nontender. After the packing was removed it was not saturated. The Kunz catheter was removed. Extremities without edema and nontender. Objective Labs Result Diagrams: 09/30/19 05:00 Labs: Laboratory Results - last 24 hr 09/30/19 05:00 WBC 8.6 RBC 3.20 L Hgb 10.0 L Hct 29.9 L MCV 93.5 MCH 31.3 MCHC 33.5 RDW 13.3 Plt Count 176 Neut % (Auto) 73.7 Lymph % (Auto) 12.2 L Pickett % (Auto) 13.4 Eos % (Auto) 0.2 L Baso % (Auto) 0.5 Neut # (Auto) 6300 Lymph # (Auto) 1000 L Pickett # (Auto) 1100 H Eos # (Auto) 0 Baso # (Auto) 0 Discharge Plan Discharge Plan Patient Disposition: Home Discharge Med Rec/Prescriptions Prescriptions: New docusate sodium 250 mg Capsule 250 mg PO BID Qty: 30 RF: 0 oxycodone 5 mg Tablet 5 mg PO Q4HR PRN (Reason: Pain, Moderate (4-6)) Qty: 30 RF: 0 Continued metoprolol succinate 100 mg tablet extended release 24 hr 100 mg PO DAILY RF: 0 atorvastatin 40 mg tablet 40 mg PO DAILY RF: 0 amlodipine 5 mg tablet 5 mg PO DAILY RF: 0 estradiol 0.01 % (0.1 mg/gram) cream 1 gram VAG 3XW RF: 0 carisoprodol 350 mg tablet 1 tab PO TID PRN (Reason: Pain, Moderate) RF: 0 ibuprofen 800 mg tablet 800 mg PO TID PRN (Reason: Pain, Moderate) RF: 0 meloxicam 15 mg tablet 1 tab PO DAILY RF: 0 losartan 25 mg tablet 25 mg PO DAILY RF: 0 gabapentin 300 mg capsule 1 cap PO TID RF: 0 zolpidem 10 mg tablet 10 mg PO BEDTIME RF: 0 fluticasone propionate 50 mcg/actuation spray,suspension 1 spray Intranasal DAILY PRN (Reason: Congestion) RF: 0 lifitegrast 5 % dropperette 1 drp ophthalmic (eye) Q12H RF: 0 cetirizine [Zyrtec] 10 mg Tablet 1 tab PO DAILY RF: 0 cholecalciferol (vitamin D3) [Vitamin D3] 1,000 unit Capsule 1,000 unit PO DAILY RF: 0 coenzyme Q10 [CoQ-10] 100 mg Capsule 100 mg PO DAILY RF: 0 omega 4-hok-dhk-fish oil [Fish Oil] 1,000 mg (120 mg-180 mg) Capsule 1,000 mg PO DAILY RF: 0 Follow up/Referrals: Conchis Benz MD [Physician] - 2 Weeks Dolores Dash MD [Primary Care Provider] - Discharge Orders: Discharge (Order); Ordered 09/30/19 Ordered By: Conchis Benz Provider Discharge Instructions Diet: Regular Activity: Nothing in vagina or lifting over 20 lb for 6 weeks Skin/Wound/Dressing Care Report to your healthcare provider any signs of infection, such as:: chills, fever and increased pain Visit Report/Discharge Packet Stand Alone Forms: Surgery Discharge Discharge Data Primary Care Provider: Dolores Dash Attending Provider: Conchis Benz Discharges patient from system. Discharge Date/Time: 09/30/19 10:00
== END 2019-09-30 10:00 | disposition home or self-care (01) ==
LOC: OR 06:43 → AC 06:45
PROVIDERS: Anesthesiology; Family Provider Internal Medicine; PCP Internal Medicine; Referring Provider Specialist; Visit Provider Specialist
PROC: (CPT 57282; principal; 2019-09-29 07:45)
DX: N81.2 Incomplete uterovaginal prolapse (principal); I10 Essential (primary) hypertension; E78.5 Hyperlipidemia, unspecified; G47.00 Insomnia, unspecified; F51.9 Sleep disorder not due to a substance or known physiological condition, unspecified; N99.820 Postprocedural hemorrhage of a genitourinary system organ or structure following a genitourinary system procedure
CPT/HCPCS: 57282; 57260; 36415; 85014; 85018; 85025; J0131; J0330; J0690; J1100; J1170; J2250; J2270; J2405; J2704; J2765; J3010

== ENCOUNTER → 2019-10-07 10:04 | Outpatient (CLI) | payer OTHER, SELFPAY ==
[2019-09-29 12:20] VITALS: BMI 22.9
[2019-10-07 11:13] LABS: Appearance Urine UA CLEAR; Bilirubin Urine UA NEGATIVE (NEGATIVE); Color Urine UA YELLOW; Glucose Urine UA NEGATIVE (Negative); Ketones Urine UA NEGATIVE (NEGATIVE); Leukocyte Esterase Urine UA TRACE (NEGATIVE); Nitrite Urine UA NEGATIVE (Negative); Occult Blood Urine UA 3+ (Negative); Protein Urine UA NEGATIVE (Negative); Urobilinogen Urine UA 0.2 E.U./dL (0.2)
[2019-10-07 11:25] LABS: Bacteria Urine Few (2-10); Culture Indicated Urine Specimen Cultured; Mucus Urine 1+ (Negative); RBC Urine 1-5/HPF (0-5/HPF); Squamous Epithelial Cell Urine 1-5 /HPF (0-5/HPF); WBC Urine 1-5/HPF (0-5/HPF); pH Urine UA 5.5 (4.5-8.0)
== END ==
PROVIDERS: Family Provider Internal Medicine; PCP Internal Medicine; Referring Provider Specialist; Visit Provider Specialist
DX: R39.9 Unspecified symptoms and signs involving the genitourinary system (principal)
CPT/HCPCS: 81001; 87086

== ENCOUNTER → 2020-02-12 15:00 | Outpatient (CLI) | payer MEDICARE, SELFPAY ==
[2019-09-29 12:20] VITALS: BMI 22.9
== END ==
PROVIDERS: Family Provider Internal Medicine; PCP Internal Medicine; Visit Provider Specialist
DX: R35.0 Frequency of micturition (principal)
CPT/HCPCS: 87086

== ENCOUNTER → 2020-03-30 09:28 | Outpatient (CLI) | payer MEDICARE, SELFPAY ==
[2019-09-29 12:20] VITALS: BMI 22.9
[2020-03-30 10:31] LABS: Alanine Aminotransferase 16 IU/L (<35); Albumin 4.3 g/dL (3.5-5.0); Albumin Globulin Ratio 1.3 (1.0-2.8); Alkaline Phosphatase 50 U/L (38-126); Aspartate Aminotransferase 26 IU/L (14-36); BUN Creatinine Ratio 21.3 (6-22); Bilirubin Total 0.5 mg/dL (0.2-1.3); Blood Urea Nitrogen 17 mg/dL (7-17); Calcium 9.3 mg/dL (8.4-10.2); Carbon Dioxide 33 mmol/L (22-32); Chloride 102 mmol/L (98-107); Cholesterol 213 mg/dL (140-199); Estimated Glomerular Filt Rate > 60.0 mL/min (>60); Globulin 3.3 g/dL (1.7-4.1); Glucose 99 mg/dL (80-110); HDL Cholesterol 93 mg/dL (40-60); HEMOLYSIS < 15 (0-50); LDL Cholesterol Calculated 100 mg/dL (<100); Potassium 3.8 mmol/L (3.4-5.1); Sodium 136 mmol/L (137-145); Total Protein 7.6 g/dL (6.3-8.2); Triglycerides 99 mg/dL (35-150)
== END ==
PROVIDERS: PCP Internal Medicine; Referring Provider Internal Medicine; Visit Provider Internal Medicine
DX: I10 Essential (primary) hypertension (principal); E78.5 Hyperlipidemia, unspecified
CPT/HCPCS: 36415; 80053; 80061

== ENCOUNTER → 2020-04-14 13:48 | Outpatient (CLI) | payer MEDICARE, SELFPAY ==
[2019-09-29 12:20] VITALS: BMI 22.9
--- NOTE | 2020-04-14 | DI.RAD.S_ITS ---
PROCEDURE: XR FOOT RT MIN 3V INDICATIONS: Pain iN foot TECHNIQUE: 3 views of the foot were acquired. COMPARISON: None. FINDINGS: Bones: No acute fractures or dislocations. Mild degenerative changes of the distal interphalangeal joints of the 2nd through 5th toes as well as the right 1st toe metatarsophalangeal joint and interphalangeal joint. Degenerative changes of the 1st and 2nd tarsometatarsal joint. No suspicious bony lesions. Soft tissues: No tibiotalar joint effusion. Achilles tendon appears normal. IMPRESSION: Right foot without acute osseous abnormalities. Background degenerative changes of the right foot as described above. If there are persistent symptoms or clinical suspicion for pathology, then repeat radiographs or advanced imaging (CT, MRI or bone scan) should be considered for further evaluation. Dictated by: Guru Angel M.D. on 04/14/2020 at 15:13 Approved by: Guru Angel M.D. on 04/14/2020 at 15:15
--- NOTE | 2020-04-14 | DI.RAD.S_ITS ---
PROCEDURE: XR FOOT LT MIN 3V INDICATIONS: Pain in left foot TECHNIQUE: 3 views of the foot were acquired. COMPARISON: None. FINDINGS: Bones: No acute fractures or dislocations. Chronic appearing cortical irregularity involving the lateral base of the left 5th toe proximal phalanx seen only on the oblique view. Degenerative changes of the distal interphalangeal joints of the left 2nd, 3rd, and 4th toes. Degenerative changes of the left 1st metatarsophalangeal joint. No suspicious bony lesions. Soft tissues: No tibiotalar joint effusion. Achilles tendon appears normal. IMPRESSION: Left foot without acute osseous abnormalities. Background degenerative changes of the left toes as described above. If there are persistent symptoms or clinical suspicion for pathology, then repeat radiographs or advanced imaging (CT, MRI or bone scan) should be considered for further evaluation. Dictated by: Guru Angel M.D. on 04/14/2020 at 15:06 Approved by: Guru Angel M.D. on 04/14/2020 at 15:13
== END ==
PROVIDERS: PCP Internal Medicine; Referring Provider Internal Medicine; Visit Provider Internal Medicine
DX: M79.672 Pain in left foot (principal)
CPT/HCPCS: 73630

== ENCOUNTER 2020-04-23 11:57 | Emergency (ER) | payer MEDICARE, SELFPAY ==
[2019-09-29 12:20] VITALS: BMI 22.9
[2020-04-23 12:40] VITALS: BP 136/91; PULSE 65; RESP 18; TEMP 36.6; O2SAT 98; BMI 22.7
[2020-04-23 12:56] LABS: COVID19 -Nasal RAPID Negative (Negative)
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
[2020-04-23 13:35] VITALS: BP 114/63; PULSE 64; RESP 16; O2SAT 96
== END 2020-04-23 13:44 | disposition home or self-care (01) ==
PROVIDERS: Emergency Provider Nurse Practitioner Family; PCP Internal Medicine
DX: R42 Dizziness and giddiness (principal); E78.5 Hyperlipidemia, unspecified; I10 Essential (primary) hypertension; I48.0 Paroxysmal atrial fibrillation; Z20.822 Contact with and (suspected) exposure to COVID-19
CPT/HCPCS: 87635; 99281; 99282; C9803

== ENCOUNTER 2020-05-31 13:30 | Outpatient (RCR) | payer MEDICARE, SELFPAY ==
[2019-09-29 12:20] VITALS: BMI 22.9
--- NOTE | 2020-04-05 15:30 | PT.OIE ---
Current Diagnoses Constipation, unspecified (04/05/20) Stiffness of left hip, not elsewhere classified (04/05/20) Other specified disorders of muscle (04/05/20) Overactive bladder (04/05/20) Pelvic and perineal pain (04/05/20) Other difficulties with micturition (04/05/20) Other specified postprocedural states (04/05/20) Past Medical History (Last Updated 09/24/19 @ 14:39 by Nell Dodd RN) Cervical spine fracture Chronic pain Fibroids Former smoker Hemorrhoids HLD (hyperlipidemia) HTN (hypertension) Mitral valve prolapse Osteoporosis PAF (paroxysmal atrial fibrillation) Primary insomnia Right shoulder pain (06/2019) Tachycardia Past Surgical History (Last Updated 09/24/19 @ 14:39 by Nell Dodd RN) History of carpal tunnel release of both wrists S/P cervical spinal fusion (2000) S/P cervical spinal fusion (2010) Visit Care Team Role Provider Type Dolores Dash MD Primary Care Provider Physician Specialty: Internal Medicine Address: [address] [place] [address] Email: [email or web address] Conchis Benz MD Attending Provider Physician Referring Provider Specialty: INSTRUCTION DEAN Address: [address] [place] [address], [address] Email: [email or web address] Physical Therapy Initial Evaluation PT-OP-A Visit Information Start: 03/23/20 17:52 Freq: Status: Active Protocol: Document 04/05/20 13:35 LRN (Rec: 04/05/20 14:25 LRN [id number]) Out-Patient Physical Therapy Visit Information Visit Information Visit Type Initial Evaluation Visit Note Pt had bathroom break during therapy (4') Visit Start Time 13:35 Visit Stop Time 14:25 Total Visit Minutes 50 Visit Number 1 Evaluation Information Evaluation Date 04/05/20 Precautions Precautions Hx of Cervical spinal fusion and low back pain since teenager Osteoporosis Hx of Tachycardia & paroxysmal atrial fibrillation PT-OP-B Current Condition Start: 03/23/20 17:52 Freq: Status: Active Protocol: Document 04/05/20 13:35 LRN (Rec: 04/05/20 14:25 LRN [id number]) Current Condition History of Current Condition Onset Date September 29, 2019 Current Complaints Having trouble initiating & urinating, frequency of voiding w/constipation History of Current Condition Prolapsed uterus and then had a lift of all (uterus, bladder & rectum) and is having a slow recovery. Was having a lot of pelvic pain and was having trouble sleeping. Was put on oxybutyn and it was horrible. Then thought the problem was constipation and so was put on stool softner and the pain is better. Now problem is that it takes a long time before she can urinate. she is straddling the toilet to help with flow of urination (larger). Her pain with constipation is in the lower abdomen. Has a little urinary leakage with sneezing (improved since surgery). No longer has urge incontinence. When trying to get to sleep she urinates 3-4 times per hour. Prior Treatments and Tests None Future Testing and Treatments Planned None. No other appts with Dr. Benz. Developmental History Developmental History Since the surgery has had IBS, BM is either too quick or constipated. Doesn't take Senokot at night, which is better than Miralax. Treatment Goals Patient/Caregiver Goals Pt goal is: - to be able to increase flow and volume of urine when urinating - to not have to push to initiate urine flow. She states she can stop urine flow, but can't keep it going and sometimes needs to push to initiate flow of urine. Prior Functional Status Baseline Function- ADL's Independent Baseline Function- Mobility Independent Baseline Function- Other Strong urge to urinate without leakage. Waking one time per night. Current Functional Impairments (Reported) Functional Limitations- ADL's Difficulty starting urine flow sometimes. Urinates 3-4 times before being able to go to sleep. Pelvic pain that appears related to her constipation condition. Personal Factors Other Personal Factors That May Effect LBP rated 1/10, (LBP since Therapy/Recovery teenager with intermittent pain onset. Recent onset 2 weeks ago, ending after a week ). Cervical spinal surgery (fused ) PT-OP-C Subjective Start: 03/23/20 17:52 Freq: Status: Active Protocol: Document 04/05/20 13:35 LRN (Rec: 04/05/20 14:25 LRN [id number]) Patient Questionnaires Pelvic Pain and Urgency/Frequency Patient Symptom Scale Pelvic Pain Score 16 OP-PT Pain Assessment Pain Assessment Grid Paper Pain Assessment Grid Completed Yes Location Posterior Neck Pain Location Details Posterior neck and upper shoulders Scale Used Numeric (0 - 10) Description- Other Pain range is 3-7/10 Bilateral Lower Back Pain Location Details Low back Intensity 1 Scale Used Numeric (0 - 10) Description Aching,Dull Frequency Intermittent Comments Pain Comments Currently back doesn't hurt. PT-OP-I Pelvic Floor Start: 03/23/20 17:52 Freq: Status: Active Protocol: Document 04/05/20 13:35 LRN (Rec: 04/05/20 14:25 LRN [id number]) Pelvic Floor Assessment Urine Leakage Size Small Leakage Cause Cough,Sneeze Bowel Bowel Symptoms Constipation Wadsworth Stool Chart Comments Types range from 1-7 on chart Pelvic Clock Pelvic Clock 3-6 Tenderness Pelvic Clock 6-9 Tenderness Prolapse Cystocele Grade 2 Rectocele Grade 1 Prolapse Comments Can feel end uterus with finger inserted to a little past 2nd knuckle. Perineal Descent Resting Present Bearing Present Contraction Ability Manual Muscle Testing Left 3 Manual Muscle Testing Right 3 Manual Muscle Testing Anterior 1 Manual Muscle Testing Posterior 3 Muscle Endurance (Seconds) 3 Number of Quick Contractions In 10 5 Seconds PT-OP-J Posture/Palpation/Skin Start: 03/23/20 17:52 Freq: Status: Active Protocol: Document 04/05/20 13:35 LRN (Rec: 04/05/20 14:25 LRN [id number]) Posture Evaluation Position Standing Evaluation View All positions Head/C-Spine Posture Neutral Position Pelvis Posture Anteriorly Tilted Knee Posture (L) Genu Recurvatum,(R) Genu Recurvatum PT-OP-K Range of Motion Start: 03/23/20 17:52 Freq: Status: Active Protocol: Document 04/05/20 13:35 LRN (Rec: 04/05/20 14:25 LRN [id number]) Lumbar Spine Range of Motion Lumbar Spine Active Degrees Testing Position Standing Flexion 117 Extension 20 Rotation Left 30 Rotation Right 30 Lateral Flexion Left 15 Lateral Flexion Right 15 Comments Good mobility without pain. Hip Goniometric Range of Motion Hip Right Passive Testing Position Supine Internal Rotation 45 External Rotation 70 Left Passive Testing Position Supine Internal Rotation 40 External Rotation 60 PT-OP-M Strength Start: 03/23/20 17:52 Freq: Status: Active Protocol: Document 04/05/20 13:35 LRN (Rec: 04/05/20 14:25 LRN [id number]) Trunk Strength Trunk Manual Muscle Testing Testing Position Supine Core Stabilization Mild loss of core stability with resisted SLR, good lateral stability. Hip Strength Hip Manual Muscle Testing Right Comments Hip strength is generally 5/5. Left Flexion (L2) 4 Good Comments Hip strength is generally 5/5 except as indicated above. PT-OP-Q Treatments Start: 03/23/20 17:52 Freq: Status: Active Protocol: Document 04/05/20 13:35 LRN (Rec: 04/05/20 14:25 LRN [id number]) Self-Care/Home Management Treatment Education Patient Education Home Exercise Program Other Education Discussed results of evaluation and goals set. Discussed at length use of Bladder Diary and I/S in tracking for 1 week. PT-OP-T Assessment and Plan Start: 03/23/20 17:52 Freq: Status: Active Protocol: Document 04/05/20 13:35 LRN (Rec: 04/05/20 14:25 LRN [id number]) Physical Therapy Assessment Rehab Potential Rehabilitation Potential Good Evaluation Complexity Number of Personal Factors/Comorbidities 1-2 Number of Body Systems Impaired 4 or More Clinical Presentation at Evaluation Evolving Impairments Impairments Functional Mobility,Pain,ROM, Soft Tissue Mobility,Strength Goals Seven Impairment Poor bowel consistency (1-7 type on Wadsworth Stool Scale) Short Term Goal (STG) Pt educated in bowel massage. STG Duration 04/16/19 Senior Care Goal (LTG) Improve bowel consistency to type 3-4 on Wadsworth Stool Scale. LTG Duration 07/04/20 Six Impairment Tenderness at PF clock at 3-6 O'Clock and mildly at 6-9 O' Clock Senior Care Goal (LTG) Pt has decreased complaints of tenderness at the PF clock at 3-6 O'Clock and mildly at 6-9 O'Clock. LTG Duration 07/04/20 Five Impairment Lacks appropriate knowledge of proper Thoracic/ intraabdominal pressure mgmt Short Term Goal (STG) Pt will be educated in proper use of breathing techniques to decrease intraabdominal pressure with transfers. STG Duration 04/23/19 Senior Care Goal (LTG) Pt will be educated in proper transfer techniques (hip hinge ) to minimize intraabdominal pressure with transfer sit <-> stand. LTG Duration 07/04/20 Four Impairment Assymmetry hips Short Term Goal (STG) Pt will be independent in a self care HEP of hip stretches to improve symmetry of hip rotators. STG Duration 04/30/19 Senior Care Goal (LTG) Pt will demonstrate improved symmetry of hip mobility with rotation. LTG Duration 07/04/20 Three Impairment Increased urinary frequency ( 10x/day & 5x/night) Short Term Goal (STG) Pt will be educated in urinary delay technique. STG Duration 04/16/19 Senior Care Goal (LTG) Decrease Urinary frequency to 5-7x/day and 1-2x/night. LTG Duration 07/04/20 Two Impairment Decreased PF strength ( anterior 0/5) & endurance (3 secs, Quick Flicks 5x) Short Term Goal (STG) Pt will demonstrate a clitoral nod with a PF contraction. STG Duration 05/07/19 Percher Goal (LTG) Pt will be able to hold a PF contraction for 10 secs and Quick Contractions 10x prior to fatigue. LTG Duration 07/04/20 One Impairment Lacks appropriate self care HEP Senior Care Goal (LTG) Pt will be independent in a progressive self care HEP to help manage her condition. LTG Duration 07/04/20 Assessment Summary Assessment Pt presents with symptoms of increased urinary frequency with shortened urination times and tenderness in the PF clock of 3-6 O'Clock and to a much lesser extent 6-9 O'Clock . She appears to have Uterus descent and prolapse of the bladder and rectum with increased intra-abdominal pressure. From subjective reports bowel constipation is probably providing added pressure to the organs resulting in further descent. Therapy will be needed to address her bowel dysfunction to help control her pelvic pain and decrease further organ descent of her bladder, rectum and uterus. The pt may need bladder retraining and stretching to improve bladder capacity to decrease her frequency of urination. Further assessment will be needed once she returns with her bladder diary. Additionally, the pt will need manual therapy and exercises to reduce pain of the PF and to improve symmetry of hip mobility. The pt will benefit from skilled physical therapy to decrease PF pain with improved bowel function and manual therapy, and to decrease frequency of urination through self stretching (PF & hips), PF retraining (urgency technique) , pt education in proper PF care and therapeutic ex to improve PF strength and endurance. Physical Therapy Plan Frequency and Duration Frequency of Treatment 1x/Week Plan of Care Start Date 04/05/20 Plan of Care End Date 07/04/20 Therapeutic Interventions Therapeutic Interventions Home Exercise Program,Manual Therapy,Neuromuscular Re- education,Patient/Caregiver Education,Self-Care/Home Management,Soft Tissue Mobilization,Therapeutic Exercises Modalities Biofeedback,Electric Stimulation Other Referrals/Consults Referrals/Consults Recommended Possible need for clerk to justice consult. Next Visit Focus/Plan Next Note Type Treatment Note Next Visit Plan Review and discuss Bladder Diary, education to decrease PF pain with improved bowel function and proper bowel care (bowel massage & dietary recommendations), manual therapy (abdominal, PF, and mobility of scar/fascia, bladder, uterus, rectum), and to decrease frequency of urination through self stretching (PF with and w/o dilator, & hips), PF retraining (urgency technique) , education in proper PF care and therapeutic ex to improve PF strength and endurance, training and ex for proper PF contraction in isolation of substitute muscles, core stabilization. possible use of E-Stim to decrease pain. If frequency not improved, try biofeedback with vaginal/rectal/surface sensor(s) for management of PF tone.
--- NOTE | 2020-04-05 17:30 | PT.OIE ---
Current Diagnoses Constipation, unspecified (04/05/20) Stiffness of left hip, not elsewhere classified (04/05/20) Other specified disorders of muscle (04/05/20) Overactive bladder (04/05/20) Pelvic and perineal pain (04/05/20) Other difficulties with micturition (04/05/20) Other specified postprocedural states (04/05/20) Past Medical History (Last Updated 09/24/19 @ 14:39 by Nell Dodd RN) Cervical spine fracture Chronic pain Fibroids Former smoker Hemorrhoids HLD (hyperlipidemia) HTN (hypertension) Mitral valve prolapse Osteoporosis PAF (paroxysmal atrial fibrillation) Primary insomnia Right shoulder pain (06/2019) Tachycardia Past Surgical History (Last Updated 09/24/19 @ 14:39 by Nell Dodd RN) History of carpal tunnel release of both wrists S/P cervical spinal fusion (2000) S/P cervical spinal fusion (2010) Visit Care Team Role Provider Type Dolores Dash MD Primary Care Provider Physician Specialty: Internal Medicine Address: [address] [place] [address] Email: [email or web address] Conchis Benz MD Attending Provider Physician Referring Provider Specialty: HELMET COVERER Address: [address] [place] [address], [id number] Email: [email or web address] Physical Therapy Initial Evaluation PT-OP-A Visit Information Start: 03/23/20 17:52 Freq: Status: Active Protocol: Document 04/05/20 13:35 LRN (Rec: 04/05/20 14:25 LRN [id number]) Out-Patient Physical Therapy Visit Information Visit Information Visit Type Initial Evaluation Visit Note Pt had bathroom break during therapy (4') Visit Start Time 13:35 Visit Stop Time 14:25 Total Visit Minutes 50 Visit Number 1 Evaluation Information Evaluation Date 04/05/20 Precautions Precautions Hx of Cervical spinal fusion and low back pain since teenager Osteoporosis Hx of Tachycardia & paroxysmal atrial fibrillation PT-OP-B Current Condition Start: 03/23/20 17:52 Freq: Status: Active Protocol: Document 04/05/20 13:35 LRN (Rec: 04/05/20 14:25 LRN [id number]) Current Condition History of Current Condition Onset Date September 29, 2019 Current Complaints Having trouble initiating & urinating, frequency of voiding w/constipation History of Current Condition Prolapsed uterus and then had a lift of all (uterus, bladder & rectum) and is having a slow recovery. Was having a lot of pelvic pain and was having trouble sleeping. Was put on oxybutyn and it was horrible. Then thought the problem was constipation and so was put on stool softner and the pain is better. Now problem is that it takes a long time before she can urinate. she is straddling the toilet to help with flow of urination (larger). Her pain with constipation is in the lower abdomen. Has a little urinary leakage with sneezing (improved since surgery). No longer has urge incontinence. When trying to get to sleep she urinates 3-4 times per hour. Prior Treatments and Tests None Future Testing and Treatments Planned None. No other appts with Dr. Benz. Developmental History Developmental History Since the surgery has had IBS, BM is either too quick or constipated. Doesn't take Senokot at night, which is better than Miralax. Treatment Goals Patient/Caregiver Goals Pt goal is: - to be able to increase flow and volume of urine when urinating - to not have to push to initiate urine flow. She states she can stop urine flow, but can't keep it going and sometimes needs to push to initiate flow of urine. Prior Functional Status Baseline Function- ADL's Independent Baseline Function- Mobility Independent Baseline Function- Other Strong urge to urinate without leakage. Waking one time per night. Current Functional Impairments (Reported) Functional Limitations- ADL's Difficulty starting urine flow sometimes. Urinates 3-4 times before being able to go to sleep. Pelvic pain that appears related to her constipation condition. Personal Factors Other Personal Factors That May Effect LBP rated 1/10, (LBP since Therapy/Recovery teenager with intermittent pain onset. Recent onset 2 weeks ago, ending after a week ). Cervical spinal surgery (fused ) PT-OP-C Subjective Start: 03/23/20 17:52 Freq: Status: Active Protocol: Document 04/05/20 13:35 LRN (Rec: 04/05/20 14:25 LRN [id number]) Patient Questionnaires Pelvic Pain and Urgency/Frequency Patient Symptom Scale Pelvic Pain Score 16 OP-PT Pain Assessment Pain Assessment Grid Paper Pain Assessment Grid Completed Yes Location Posterior Neck Pain Location Details Posterior neck and upper shoulders Scale Used Numeric (0 - 10) Description- Other Pain range is 3-7/10 Bilateral Lower Back Pain Location Details Low back Intensity 1 Scale Used Numeric (0 - 10) Description Aching,Dull Frequency Intermittent Comments Pain Comments Currently back doesn't hurt. PT-OP-I Pelvic Floor Start: 03/23/20 17:52 Freq: Status: Active Protocol: Document 04/05/20 13:35 LRN (Rec: 04/05/20 14:25 LRN [id number]) Pelvic Floor Assessment Urine Leakage Size Small Leakage Cause Cough,Sneeze Bowel Bowel Symptoms Constipation [place] Stool Chart Comments Types range from 1-7 on chart Pelvic Clock Pelvic Clock 3-6 Tenderness Pelvic Clock 6-9 Tenderness Prolapse Cystocele Grade 2 Rectocele Grade 1 Prolapse Comments Can feel end uterus with finger inserted to a little past 2nd knuckle. Perineal Descent Resting Present Bearing Present Contraction Ability Manual Muscle Testing Left 3 Manual Muscle Testing Right 3 Manual Muscle Testing Anterior 1 Manual Muscle Testing Posterior 3 Muscle Endurance (Seconds) 3 Number of Quick Contractions In 10 5 Seconds PT-OP-J Posture/Palpation/Skin Start: 03/23/20 17:52 Freq: Status: Active Protocol: Document 04/05/20 13:35 LRN (Rec: 04/05/20 14:25 LRN [id number]) Posture Evaluation Position Standing Evaluation View All positions Head/C-Spine Posture Neutral Position Pelvis Posture Anteriorly Tilted Knee Posture (L) Genu Recurvatum,(R) Genu Recurvatum PT-OP-K Range of Motion Start: 03/23/20 17:52 Freq: Status: Active Protocol: Document 04/05/20 13:35 LRN (Rec: 04/05/20 14:25 LRN [id number]) Lumbar Spine Range of Motion Lumbar Spine Active Degrees Testing Position Standing Flexion 117 Extension 20 Rotation Left 30 Rotation Right 30 Lateral Flexion Left 15 Lateral Flexion Right 15 Comments Good mobility without pain. Hip Goniometric Range of Motion Hip Right Passive Testing Position Supine Internal Rotation 45 External Rotation 70 Left Passive Testing Position Supine Internal Rotation 40 External Rotation 60 PT-OP-M Strength Start: 03/23/20 17:52 Freq: Status: Active Protocol: Document 04/05/20 13:35 LRN (Rec: 04/05/20 14:25 LRN [id number]) Trunk Strength Trunk Manual Muscle Testing Testing Position Supine Core Stabilization Mild loss of core stability with resisted SLR, good lateral stability. Hip Strength Hip Manual Muscle Testing Right Comments Hip strength is generally 5/5. Left Flexion (L2) 4 Good Comments Hip strength is generally 5/5 except as indicated above. PT-OP-Q Treatments Start: 03/23/20 17:52 Freq: Status: Active Protocol: Document 04/05/20 13:35 LRN (Rec: 04/05/20 14:25 LRN [id number]) Self-Care/Home Management Treatment Education Patient Education Home Exercise Program Other Education Discussed results of evaluation and goals set. Discussed at length use of Bladder Diary and I/S in tracking for 1 week. PT-OP-T Assessment and Plan Start: 03/23/20 17:52 Freq: Status: Active Protocol: Document 04/05/20 13:35 LRN (Rec: 04/05/20 14:25 LRN [id number]) Physical Therapy Assessment Rehab Potential Rehabilitation Potential Good Evaluation Complexity Number of Personal Factors/Comorbidities 1-2 Number of Body Systems Impaired 4 or More Clinical Presentation at Evaluation Evolving Impairments Impairments Functional Mobility,Pain,ROM, Soft Tissue Mobility,Strength Goals Seven Impairment Poor bowel consistency (1-7 type on [place] Stool Scale) Short Term Goal (STG) Pt educated in bowel massage. STG Duration 04/16/19 Mcc Goal (LTG) Improve bowel consistency to type 3-4 on [place] Stool Scale. LTG Duration 07/04/20 Six Impairment Tenderness at PF clock at 3-6 O'Clock and mildly at 6-9 O' Clock Mcc Goal (LTG) Pt has decreased complaints of tenderness at the PF clock at 3-6 O'Clock and mildly at 6-9 O'Clock. LTG Duration 07/04/20 Five Impairment Lacks appropriate knowledge of proper Thoracic/ intraabdominal pressure mgmt Short Term Goal (STG) Pt will be educated in proper use of breathing techniques to decrease intraabdominal pressure with transfers. STG Duration 04/23/19 Mcc Goal (LTG) Pt will be educated in proper transfer techniques (hip hinge ) to minimize intraabdominal pressure with transfer sit <-> stand. LTG Duration 07/04/20 Four Impairment Assymmetry hips Short Term Goal (STG) Pt will be independent in a self care HEP of hip stretches to improve symmetry of hip rotators. STG Duration 04/30/19 Mcc Goal (LTG) Pt will demonstrate improved symmetry of hip mobility with rotation. LTG Duration 07/04/20 Three Impairment Increased urinary frequency ( 10x/day & 5x/night) Short Term Goal (STG) Pt will be educated in urinary delay technique. STG Duration 04/16/19 Mcc Goal (LTG) Decrease Urinary frequency to 5-7x/day and 1-2x/night. LTG Duration 07/04/20 Two Impairment Decreased PF strength ( anterior 0/5) & endurance (3 secs, Quick Flicks 5x) Short Term Goal (STG) Pt will demonstrate a clitoral nod with a PF contraction. STG Duration 05/07/19 Scouring Pads Supervisor Goal (LTG) Pt will be able to hold a PF contraction for 10 secs and Quick Contractions 10x prior to fatigue. LTG Duration 07/04/20 One Impairment Lacks appropriate self care HEP Mcc Goal (LTG) Pt will be independent in a progressive self care HEP to help manage her condition. LTG Duration 07/04/20 Assessment Summary Assessment Pt presents with symptoms of increased urinary frequency with shortened urination times and tenderness in the PF clock of 3-6 O'Clock and to a much lesser extent 6-9 O'Clock . She appears to have Uterus descent and prolapse of the bladder and rectum with increased intra-abdominal pressure. From subjective reports bowel constipation is probably providing added pressure to the organs resulting in further descent. Therapy will be needed to address her bowel dysfunction to help control her pelvic pain and decrease further organ descent of her bladder, rectum and uterus. The pt may need bladder retraining and stretching to improve bladder capacity to decrease her frequency of urination. Further assessment will be needed once she returns with her bladder diary. Additionally, the pt will need manual therapy and exercises to reduce pain of the PF and to improve symmetry of hip mobility. The pt will benefit from skilled physical therapy to decrease PF pain with improved bowel function and manual therapy, and to decrease frequency of urination through self stretching (PF & hips), PF retraining (urgency technique) , pt education in proper PF care and therapeutic ex to improve PF strength and endurance. Physical Therapy Plan Frequency and Duration Frequency of Treatment 1x/Week Plan of Care Start Date 04/05/20 Plan of Care End Date 07/04/20 Therapeutic Interventions Therapeutic Interventions Home Exercise Program,Manual Therapy,Neuromuscular Re- education,Patient/Caregiver Education,Self-Care/Home Management,Soft Tissue Mobilization,Therapeutic Exercises Modalities Biofeedback,Electric Stimulation Other Referrals/Consults Referrals/Consults Recommended Possible need for steel placer consult. Next Visit Focus/Plan Next Note Type Treatment Note Next Visit Plan Review and discuss Bladder Diary, education to decrease PF pain with improved bowel function and proper bowel care (bowel massage & dietary recommendations), manual therapy (abdominal, PF, and mobility of scar/fascia, bladder, uterus, rectum), and to decrease frequency of urination through self stretching (PF with and w/o dilator, & hips), PF retraining (urgency technique) , education in proper PF care and therapeutic ex to improve PF strength and endurance, training and ex for proper PF contraction in isolation of substitute muscles, core stabilization. possible use of E-Stim to decrease pain. If frequency not improved, try biofeedback with vaginal/rectal/surface sensor(s) for management of PF tone.
--- NOTE | 2020-04-12 15:58 | PT.OTN ---
Current Diagnoses Constipation, unspecified (04/12/20) Stiffness of left hip, not elsewhere classified (04/12/20) Other specified disorders of muscle (04/12/20) Overactive bladder (04/12/20) Pelvic and perineal pain (04/12/20) Other difficulties with micturition (04/12/20) Other specified postprocedural states (04/12/20) Physical Therapy Treatment Note PT-OP-A Visit Information Start: 03/23/20 17:52 Freq: Status: Active Protocol: Document 04/12/20 13:33 LRN (Rec: 04/12/20 14:19 LRN [id number]) Out-Patient Physical Therapy Visit Information Visit Information Visit Type Treatment Note Visit Start Time 13:33 Visit Stop Time 14:14 Total Visit Minutes 41 Visit Number 2 Evaluation Information Evaluation Date 04/05/20 Precautions Precautions Hx of Cervical spinal fusion and low back pain since teenager Osteoporosis Hx of Tachycardia & paroxysmal atrial fibrillation PT-OP-B Current Condition Start: 03/23/20 17:52 Freq: Status: Active Protocol: Document 04/05/20 13:35 LRN (Rec: 04/05/20 14:25 LRN [id number]) Current Condition History of Current Condition Onset Date September 29, 2019 Current Complaints Having trouble initiating & urinating, frequency of voiding w/constipation History of Current Condition Prolapsed uterus and then had a lift of all (uterus, bladder & rectum) and is having a slow recovery. Was having a lot of pelvic pain and was having trouble sleeping. Was put on oxybutyn and it was horrible. Then thought the problem was constipation and so was put on stool softner and the pain is better. Now problem is that it takes a long time before she can urinate. she is straddling the toilet to help with flow of urination (larger). Her pain with constipation is in the lower abdomen. Has a little urinary leakage with sneezing (improved since surgery). No longer has urge incontinence. When trying to get to sleep she urinates 3-4 times per hour. Prior Treatments and Tests None Future Testing and Treatments Planned None. No other appts with Dr. Benz. Developmental History Developmental History Since the surgery has had IBS, BM is either too quick or constipated. Doesn't take Senokot at night, which is better than Miralax. Treatment Goals Patient/Caregiver Goals Pt goal is: - to be able to increase flow and volume of urine when urinating - to not have to push to initiate urine flow. She states she can stop urine flow, but can't keep it going and sometimes needs to push to initiate flow of urine. Prior Functional Status Baseline Function- ADL's Independent Baseline Function- Mobility Independent Baseline Function- Other Strong urge to urinate without leakage. Waking one time per night. Current Functional Impairments (Reported) Functional Limitations- ADL's Difficulty starting urine flow sometimes. Urinates 3-4 times before being able to go to sleep. Pelvic pain that appears related to her constipation condition. Personal Factors Other Personal Factors That May Effect LBP rated 1/10, (LBP since Therapy/Recovery teenager with intermittent pain onset. Recent onset 2 weeks ago, ending after a week ). Cervical spinal surgery (fused ) PT-OP-C Subjective Start: 03/23/20 17:52 Freq: Status: Active Protocol: Document 04/12/20 13:33 LRN (Rec: 04/12/20 14:19 LRN [id number]) OP-PT Subjective Patient Comments Patient Comments Did do the bladder diary. PT-OP-I Pelvic Floor Start: 03/23/20 17:52 Freq: Status: Active Protocol: Document 04/05/20 13:35 LRN (Rec: 04/05/20 14:25 LRN [id number]) Pelvic Floor Assessment Urine Leakage Size Small Leakage Cause Cough,Sneeze Bowel Bowel Symptoms Constipation [place] Stool Chart Comments Types range from 1-7 on chart Pelvic Clock Pelvic Clock 3-6 Tenderness Pelvic Clock 6-9 Tenderness Prolapse Cystocele Grade 2 Rectocele Grade 1 Prolapse Comments Can feel end uterus with finger inserted to a little past 2nd knuckle. Perineal Descent Resting Present Bearing Present Contraction Ability Manual Muscle Testing Left 3 Manual Muscle Testing Right 3 Manual Muscle Testing Anterior 1 Manual Muscle Testing Posterior 3 Muscle Endurance (Seconds) 3 Number of Quick Contractions In 10 5 Seconds PT-OP-J Posture/Palpation/Skin Start: 03/23/20 17:52 Freq: Status: Active Protocol: Document 04/05/20 13:35 LRN (Rec: 04/05/20 14:25 LRN [id number]) Posture Evaluation Position Standing Evaluation View All positions Head/C-Spine Posture Neutral Position Pelvis Posture Anteriorly Tilted Knee Posture (L) Genu Recurvatum,(R) Genu Recurvatum PT-OP-K Range of Motion Start: 03/23/20 17:52 Freq: Status: Active Protocol: Document 04/05/20 13:35 LRN (Rec: 04/05/20 14:25 LRN [id number]) Lumbar Spine Range of Motion Lumbar Spine Active Degrees Testing Position Standing Flexion 117 Extension 20 Rotation Left 30 Rotation Right 30 Lateral Flexion Left 15 Lateral Flexion Right 15 Comments Good mobility without pain. Hip Goniometric Range of Motion Hip Right Passive Testing Position Supine Internal Rotation 45 External Rotation 70 Left Passive Testing Position Supine Internal Rotation 40 External Rotation 60 PT-OP-M Strength Start: 03/23/20 17:52 Freq: Status: Active Protocol: Document 04/05/20 13:35 LRN (Rec: 04/05/20 14:25 LRN [id number]) Trunk Strength Trunk Manual Muscle Testing Testing Position Supine Core Stabilization Mild loss of core stability with resisted SLR, good lateral stability. Hip Strength Hip Manual Muscle Testing Right Comments Hip strength is generally 5/5. Left Flexion (L2) 4 Good Comments Hip strength is generally 5/5 except as indicated above. PT-OP-Q Treatments Start: 03/23/20 17:52 Freq: Status: Active Protocol: Document 04/12/20 13:33 LRN (Rec: 04/12/20 14:19 LRN [id number]) Manual Therapy Treatment Soft Tissue Mobilization Bowel massage Body Location ABdomen Intensity/Depth Superficial Body Position Supine Comments I/S & showed pt with pt doing some of the bowel massage independently. Self-Care/Home Management Treatment Education Other Education Discussed at length pt's bladder diary and changes she could make for bowel and bladder function. Discussed increase in water needs change in use of meds for constipation. Discussed dietary recommendations with review of each day and each daily meal. Issued & reviewed Bladder Diet foods/Beverages suggesions list. Activities Self-Care/Home Management Activities Issued & reviewed HEP: Urge deference technique & Bowel massage. PT-OP-T Assessment and Plan Start: 03/23/20 17:52 Freq: Status: Active Protocol: Document 04/12/20 13:33 LRN (Rec: 04/12/20 14:19 LRN [id number]) Physical Therapy Assessment Goals Seven Impairment Poor bowel consistency (1-7 type on [place] Stool Scale) Short Term Goal (STG) Pt educated in bowel massage. STG Duration 04/16/19 (04/12/20: MET GOAL) Instructor Physical Goal (LTG) Improve bowel consistency to type 3-4 on [place] Stool Scale. LTG Duration 07/04/20 Six Impairment Tenderness at PF clock at 3-6 O'Clock and mildly at 6-9 O' Clock Instructor Physical Goal (LTG) Pt has decreased complaints of tenderness at the PF clock at 3-6 O'Clock and mildly at 6-9 O'Clock. LTG Duration 07/04/20 Five Impairment Lacks appropriate knowledge of proper Thoracic/ intraabdominal pressure mgmt Short Term Goal (STG) Pt will be educated in proper use of breathing techniques to decrease intraabdominal pressure with transfers. STG Duration 04/23/19 Instructor Physical Goal (LTG) Pt will be educated in proper transfer techniques (hip hinge ) to minimize intraabdominal pressure with transfer sit <-> stand. LTG Duration 07/04/20 Four Impairment Assymmetry hips Short Term Goal (STG) Pt will be independent in a self care HEP of hip stretches to improve symmetry of hip rotators. STG Duration 04/30/19 Skilled Nursing Goal (LTG) Pt will demonstrate improved symmetry of hip mobility with rotation. LTG Duration 07/04/20 Three Impairment Increased urinary frequency ( 10x/day & 5x/night) Short Term Goal (STG) Pt will be educated in urinary delay technique. STG Duration 04/16/19 (04/12/20: MET GOAL) Skilled Nursing Goal (LTG) Decrease Urinary frequency to 5-7x/day and 1-2x/night. LTG Duration 07/04/20 Two Impairment Decreased PF strength ( anterior 0/5) & endurance (3 secs, Quick Flicks 5x) Short Term Goal (STG) Pt will demonstrate a clitoral nod with a PF contraction. STG Duration 05/07/19 Instructor Physical Goal (LTG) Pt will be able to hold a PF contraction for 10 secs and Quick Contractions 10x prior to fatigue. LTG Duration 07/04/20 One Impairment Lacks appropriate self care HEP Instructor Physical Goal (LTG) Pt will be independent in a progressive self care HEP to help manage her condition. LTG Duration 07/04/20 (04/12/20: Progressing) Progress Towards Goals Progress Comments Goal 3: STG: MET Goal 7: STG: MET Assessment Summary Assessment Pt has better understanding of bladder irritants and effects on frequency of urination with pt education. Pt appears to need extra time for review and practice with self care program. Physical Therapy Plan Frequency and Duration Frequency of Treatment 1x/Week Plan of Care Start Date 04/05/20 Plan of Care End Date 07/04/20 Next Visit Focus/Plan Next Note Type Treatment Note Next Visit Plan Review and continue PF retraining (urgency technique) , education in proper PF care and therapeutic ex to improve PF strength and endurance, training and ex for proper PF contraction in isolation of substitute muscles, core stabilization. Manual therapy (abdominal, PF, and mobility of scar/fascia, bladder, uterus, rectum), and to decrease frequency of urination through self stretching (PF with and w/o dilator, & hips), Possible use of E-Stim to decrease pain if needed. If frequency not improved, try biofeedback with vaginal/ rectal/surface sensor(s) for management of PF tone.
--- NOTE | 2020-04-19 17:16 | PT.OTN ---
Current Diagnoses Constipation, unspecified (04/19/20) Stiffness of left hip, not elsewhere classified (04/19/20) Other specified disorders of muscle (04/19/20) Overactive bladder (04/19/20) Pelvic and perineal pain (04/19/20) Other difficulties with micturition (04/19/20) Other specified postprocedural states (04/19/20) Physical Therapy Treatment Note PT-OP-A Visit Information Start: 03/23/20 17:52 Freq: Status: Active Protocol: Document 04/19/20 13:31 LRN (Rec: 04/19/20 14:19 LRN [id number]) Out-Patient Physical Therapy Visit Information Visit Information Visit Type Treatment Note Visit Start Time 13:31 Visit Stop Time 14:15 Total Visit Minutes 44 Visit Number 3 Evaluation Information Evaluation Date 04/05/20 Precautions Precautions Hx of Cervical spinal fusion and low back pain since teenager Osteoporosis Hx of Tachycardia & paroxysmal atrial fibrillation PT-OP-B Current Condition Start: 03/23/20 17:52 Freq: Status: Active Protocol: Document 04/05/20 13:35 LRN (Rec: 04/05/20 14:25 LRN [id number]) Current Condition History of Current Condition Onset Date September 29, 2019 Current Complaints Having trouble initiating & urinating, frequency of voiding w/constipation History of Current Condition Prolapsed uterus and then had a lift of all (uterus, bladder & rectum) and is having a slow recovery. Was having a lot of pelvic pain and was having trouble sleeping. Was put on oxybutyn and it was horrible. Then thought the problem was constipation and so was put on stool softner and the pain is better. Now problem is that it takes a long time before she can urinate. she is straddling the toilet to help with flow of urination (larger). Her pain with constipation is in the lower abdomen. Has a little urinary leakage with sneezing (improved since surgery). No longer has urge incontinence. When trying to get to sleep she urinates 3-4 times per hour. Prior Treatments and Tests None Future Testing and Treatments Planned None. No other appts with Dr. Benz. Developmental History Developmental History Since the surgery has had IBS, BM is either too quick or constipated. Doesn't take Senokot at night, which is better than Miralax. Treatment Goals Patient/Caregiver Goals Pt goal is: - to be able to increase flow and volume of urine when urinating - to not have to push to initiate urine flow. She states she can stop urine flow, but can't keep it going and sometimes needs to push to initiate flow of urine. Prior Functional Status Baseline Function- ADL's Independent Baseline Function- Mobility Independent Baseline Function- Other Strong urge to urinate without leakage. Waking one time per night. Current Functional Impairments (Reported) Functional Limitations- ADL's Difficulty starting urine flow sometimes. Urinates 3-4 times before being able to go to sleep. Pelvic pain that appears related to her constipation condition. Personal Factors Other Personal Factors That May Effect LBP rated 1/10, (LBP since Therapy/Recovery teenager with intermittent pain onset. Recent onset 2 weeks ago, ending after a week ). Cervical spinal surgery (fused ) PT-OP-C Subjective Start: 03/23/20 17:52 Freq: Status: Active Protocol: Document 04/19/20 13:31 LRN (Rec: 04/19/20 14:19 LRN [id number]) OP-PT Subjective Patient Comments Patient Comments Did bladder diary. Tried drinking more water and didn't take Senokot, but pt reported mistake didn't have a BM for 1.5 days. States using the urinary delay technique made her very uncomfortable. States she has urges only when she is in public and doesn't have access to bathroom; therefore that is when she used the delay techinque. States she doesn't have a problem with strong urges. PT-OP-I Pelvic Floor Start: 03/23/20 17:52 Freq: Status: Active Protocol: Document 04/05/20 13:35 LRN (Rec: 04/05/20 14:25 LRN [id number]) Pelvic Floor Assessment Urine Leakage Size Small Leakage Cause Cough,Sneeze Bowel Bowel Symptoms Constipation Caldwell Stool Chart Comments Types range from 1-7 on chart Pelvic Clock Pelvic Clock 3-6 Tenderness Pelvic Clock 6-9 Tenderness Prolapse Cystocele Grade 2 Rectocele Grade 1 Prolapse Comments Can feel end uterus with finger inserted to a little past 2nd knuckle. Perineal Descent Resting Present Bearing Present Contraction Ability Manual Muscle Testing Left 3 Manual Muscle Testing Right 3 Manual Muscle Testing Anterior 1 Manual Muscle Testing Posterior 3 Muscle Endurance (Seconds) 3 Number of Quick Contractions In 10 5 Seconds PT-OP-J Posture/Palpation/Skin Start: 03/23/20 17:52 Freq: Status: Active Protocol: Document 04/05/20 13:35 LRN (Rec: 04/05/20 14:25 LRN [id number]) Posture Evaluation Position Standing Evaluation View All positions Head/C-Spine Posture Neutral Position Pelvis Posture Anteriorly Tilted Knee Posture (L) Genu Recurvatum,(R) Genu Recurvatum PT-OP-K Range of Motion Start: 03/23/20 17:52 Freq: Status: Active Protocol: Document 04/05/20 13:35 LRN (Rec: 04/05/20 14:25 LRN [id number]) Lumbar Spine Range of Motion Lumbar Spine Active Degrees Testing Position Standing Flexion 117 Extension 20 Rotation Left 30 Rotation Right 30 Lateral Flexion Left 15 Lateral Flexion Right 15 Comments Good mobility without pain. Hip Goniometric Range of Motion Hip Right Passive Testing Position Supine Internal Rotation 45 External Rotation 70 Left Passive Testing Position Supine Internal Rotation 40 External Rotation 60 PT-OP-M Strength Start: 03/23/20 17:52 Freq: Status: Active Protocol: Document 04/05/20 13:35 LRN (Rec: 04/05/20 14:25 LRN [id number]) Trunk Strength Trunk Manual Muscle Testing Testing Position Supine Core Stabilization Mild loss of core stability with resisted SLR, good lateral stability. Hip Strength Hip Manual Muscle Testing Right Comments Hip strength is generally 5/5. Left Flexion (L2) 4 Good Comments Hip strength is generally 5/5 except as indicated above. PT-OP-Q Treatments Start: 03/23/20 17:52 Freq: Status: Active Protocol: Document 04/19/20 13:31 LRN (Rec: 04/19/20 14:19 LRN [id number]) Manual Therapy Treatment Soft Tissue Mobilization Diaphragm at inferior ribs Body Location Diaphragm at inferior ribs Mobilization Type Trigger Point Release Intensity/Depth variable depth Body Position Supine Abdomen Body Location Abdomen Mobilization Type Myofascial Release Intensity/Depth Superficial Body Position Hooklying Comments MFR for all planes of movement in front and lateral trunk, urachus, area of large intestines. Bowel massage Body Location Bowel massage review Body Position Supine Self-Care/Home Management Treatment Education Other Education Bladder Dairy review with discussion on bowels/bladder and fluid intake with medication results, urination times and not to withhold urinating if possible. PT-OP-T Assessment and Plan Start: 03/23/20 17:52 Freq: Status: Active Protocol: Document 04/19/20 13:31 LRN (Rec: 04/19/20 14:19 LRN [id number]) Physical Therapy Assessment Goals Seven Impairment Poor bowel consistency (1-7 type on Caldwell Stool Scale) Short Term Goal (STG) Pt educated in bowel massage. STG Duration 04/16/19 (04/12/20: MET GOAL) Hosiery Mater Goal (LTG) Improve bowel consistency to type 3-4 on Caldwell Stool Scale. LTG Duration 07/04/20 Six Impairment Tenderness at PF clock at 3-6 O'Clock and mildly at 6-9 O' Clock Hosiery Mater Goal (LTG) Pt has decreased complaints of tenderness at the PF clock at 3-6 O'Clock and mildly at 6-9 O'Clock. LTG Duration 07/04/20 Five Impairment Lacks appropriate knowledge of proper Thoracic/ intraabdominal pressure mgmt Short Term Goal (STG) Pt will be educated in proper use of breathing techniques to decrease intraabdominal pressure with transfers. STG Duration 04/23/19 Snf Goal (LTG) Pt will be educated in proper transfer techniques (hip hinge ) to minimize intraabdominal pressure with transfer sit <-> stand. LTG Duration 07/04/20 Four Impairment Assymmetry hips Short Term Goal (STG) Pt will be independent in a self care HEP of hip stretches to improve symmetry of hip rotators. STG Duration 04/30/19 Hosiery Mater Goal (LTG) Pt will demonstrate improved symmetry of hip mobility with rotation. LTG Duration 07/04/20 Three Impairment Increased urinary frequency ( 10x/day & 5x/night) Short Term Goal (STG) Pt will be educated in urinary delay technique. STG Duration 04/16/19 (04/12/20: MET GOAL) Snf Goal (LTG) Decrease Urinary frequency to 5-7x/day and 1-2x/night. LTG Duration 07/04/20 Two Impairment Decreased PF strength ( anterior 0/5) & endurance (3 secs, Quick Flicks 5x) Short Term Goal (STG) Pt will demonstrate a clitoral nod with a PF contraction. STG Duration 05/07/19 Snf Goal (LTG) Pt will be able to hold a PF contraction for 10 secs and Quick Contractions 10x prior to fatigue. LTG Duration 07/04/20 One Impairment Lacks appropriate self care HEP Snf Goal (LTG) Pt will be independent in a progressive self care HEP to help manage her condition. LTG Duration 07/04/20 (04/12/20: Progressing) Progress Towards Goals Progress Towards Goals Progressing Toward Goals Assessment Summary Assessment Pt is extemely tender to palpation in the abdominal region and with MFR at abdomen she could feel pulling at bladder. with most directions during MFR. Pt having very long urination times, unknown if it is mechanical or soft tissue related. She had had a lift of bladder, rectum & uterus and has quite a bit of abdominal tension and lack of abdominal (GI) mobility due to pain. Greater soft tissue restriction on left than right ; probably due to rectum and lift. Pt increase in water daily didn't appear to help decrease her level of constipation; therefore pt needing stool softner Senokot daily. Pt may need MFR of urethra if poor mobility or kinked, causing poor urine flow. Further assessment of PF tone, to determine if tight or weak . Physical Therapy Plan Frequency and Duration Frequency of Treatment 1x/Week Plan of Care Start Date 04/05/20 Plan of Care End Date 07/04/20 Next Visit Focus/Plan Next Note Type Treatment Note Next Visit Plan Education in proper PF care and educated in proper use of breathing techniques to decrease intraabdominal pressure with transfers. Issue self care HEP of hip stretches to improve symmetry of hip rotators. MFR: PF clock at 3-6 O'Clock and mildly at 6-9 O'Clock Therapeutic ex to improve PF strength and endurance, training and ex for proper PF contraction in isolation of substitute muscles, core stabilization. Manual therapy (abdominal, PF, and mobility of scar/fascia, bladder, uterus, rectum), and to decrease frequency of urination through self stretching (PF with and w/o dilator, & hips), Possible use of E-Stim to decrease pain if needed. If frequency not improved, try biofeedback with vaginal/ rectal/surface sensor(s) for management of PF tone.
--- NOTE | 2020-04-26 16:36 | PT.OTN ---
Current Diagnoses Constipation, unspecified (04/26/20) Stiffness of left hip, not elsewhere classified (04/26/20) Other specified disorders of muscle (04/26/20) Overactive bladder (04/26/20) Pelvic and perineal pain (04/26/20) Other difficulties with micturition (04/26/20) Other specified postprocedural states (04/26/20) Physical Therapy Treatment Note PT-OP-A Visit Information Start: 03/23/20 17:52 Freq: Status: Active Protocol: Document 04/26/20 13:37 LRN (Rec: 04/26/20 14:23 LRN [id number]) Out-Patient Physical Therapy Visit Information Visit Information Visit Type Treatment Note Visit Start Time 13:37 Visit Stop Time 14:19 Total Visit Minutes 42 Visit Number 4 Evaluation Information Evaluation Date 04/05/20 Precautions Precautions Hx of Cervical spinal fusion and low back pain since teenager Osteoporosis Hx of Tachycardia & paroxysmal atrial fibrillation PT-OP-B Current Condition Start: 03/23/20 17:52 Freq: Status: Active Protocol: Document 04/05/20 13:35 LRN (Rec: 04/05/20 14:25 LRN [id number]) Current Condition History of Current Condition Onset Date September 29, 2019 Current Complaints Having trouble initiating & urinating, frequency of voiding w/constipation History of Current Condition Prolapsed uterus and then had a lift of all (uterus, bladder & rectum) and is having a slow recovery. Was having a lot of pelvic pain and was having trouble sleeping. Was put on oxybutyn and it was horrible. Then thought the problem was constipation and so was put on stool softner and the pain is better. Now problem is that it takes a long time before she can urinate. she is straddling the toilet to help with flow of urination (larger). Her pain with constipation is in the lower abdomen. Has a little urinary leakage with sneezing (improved since surgery). No longer has urge incontinence. When trying to get to sleep she urinates 3-4 times per hour. Prior Treatments and Tests None Future Testing and Treatments Planned None. No other appts with Dr. Benz. Developmental History Developmental History Since the surgery has had IBS, BM is either too quick or constipated. Doesn't take Senokot at night, which is better than Miralax. Treatment Goals Patient/Caregiver Goals Pt goal is: - to be able to increase flow and volume of urine when urinating - to not have to push to initiate urine flow. She states she can stop urine flow, but can't keep it going and sometimes needs to push to initiate flow of urine. Prior Functional Status Baseline Function- ADL's Independent Baseline Function- Mobility Independent Baseline Function- Other Strong urge to urinate without leakage. Waking one time per night. Current Functional Impairments (Reported) Functional Limitations- ADL's Difficulty starting urine flow sometimes. Urinates 3-4 times before being able to go to sleep. Pelvic pain that appears related to her constipation condition. Personal Factors Other Personal Factors That May Effect LBP rated 1/10, (LBP since Therapy/Recovery teenager with intermittent pain onset. Recent onset 2 weeks ago, ending after a week ). Cervical spinal surgery (fused ) PT-OP-C Subjective Start: 03/23/20 17:52 Freq: Status: Active Protocol: Document 04/26/20 13:37 LRN (Rec: 04/26/20 14:23 LRN [id number]) OP-PT Subjective Patient Comments Patient Comments The massaging really gives relief. Lets her get to sleep and makes her want to get up. One bad day with bowels because she had forgotten to take Senecot. PT-OP-I Pelvic Floor Start: 03/23/20 17:52 Freq: Status: Active Protocol: Document 04/05/20 13:35 LRN (Rec: 04/05/20 14:25 LRN [id number]) Pelvic Floor Assessment Urine Leakage Size Small Leakage Cause Cough,Sneeze Bowel Bowel Symptoms Constipation [place] Stool Chart Comments Types range from 1-7 on chart Pelvic Clock Pelvic Clock 3-6 Tenderness Pelvic Clock 6-9 Tenderness Prolapse Cystocele Grade 2 Rectocele Grade 1 Prolapse Comments Can feel end uterus with finger inserted to a little past 2nd knuckle. Perineal Descent Resting Present Bearing Present Contraction Ability Manual Muscle Testing Left 3 Manual Muscle Testing Right 3 Manual Muscle Testing Anterior 1 Manual Muscle Testing Posterior 3 Muscle Endurance (Seconds) 3 Number of Quick Contractions In 10 5 Seconds PT-OP-J Posture/Palpation/Skin Start: 03/23/20 17:52 Freq: Status: Active Protocol: Document 04/05/20 13:35 LRN (Rec: 04/05/20 14:25 LRN [id number]) Posture Evaluation Position Standing Evaluation View All positions Head/C-Spine Posture Neutral Position Pelvis Posture Anteriorly Tilted Knee Posture (L) Genu Recurvatum,(R) Genu Recurvatum PT-OP-K Range of Motion Start: 03/23/20 17:52 Freq: Status: Active Protocol: Document 04/05/20 13:35 LRN (Rec: 04/05/20 14:25 LRN [id number]) Lumbar Spine Range of Motion Lumbar Spine Active Degrees Testing Position Standing Flexion 117 Extension 20 Rotation Left 30 Rotation Right 30 Lateral Flexion Left 15 Lateral Flexion Right 15 Comments Good mobility without pain. Hip Goniometric Range of Motion Hip Right Passive Testing Position Supine Internal Rotation 45 External Rotation 70 Left Passive Testing Position Supine Internal Rotation 40 External Rotation 60 PT-OP-M Strength Start: 03/23/20 17:52 Freq: Status: Active Protocol: Document 04/05/20 13:35 LRN (Rec: 04/05/20 14:25 LRN [id number]) Trunk Strength Trunk Manual Muscle Testing Testing Position Supine Core Stabilization Mild loss of core stability with resisted SLR, good lateral stability. Hip Strength Hip Manual Muscle Testing Right Comments Hip strength is generally 5/5. Left Flexion (L2) 4 Good Comments Hip strength is generally 5/5 except as indicated above. PT-OP-Q Treatments Start: 03/23/20 17:52 Freq: Status: Active Protocol: Document 04/26/20 13:37 LRN (Rec: 04/26/20 14:23 LRN [id number]) Therapeutic Exercises Supine Exercises Deep Breathing Supine Exercise Name See Self Care section Fig 4 stretch Supine Exercise Name Fig 4 stretch f/b active stretch x 10 Reps/Minutes 4' with extra time for finding max tolerance stretch Manual Therapy Treatment Soft Tissue Mobilization Diaphragm at inferior ribs Body Location Diaphragm at inferior ribs Mobilization Type Trigger Point Release Intensity/Depth variable depth Body Position Supine Abdomen Body Location Abdomen Mobilization Type Myofascial Release Intensity/Depth Superficial Body Position Hooklying Comments MFR for all planes of movement in front and lateral trunk, urachus, area of large intestines. Self-Care/Home Management Treatment Education Patient Education Body Mechanics Other Education Educated pt in proper Deep Breathing techinque with practice. Educated pt in proper breathing for transfers supine <>sit, and sit<>stand and practiced. Activities Self-Care/Home Management Activities I/S pt to add to HEP: Fig 4 stretch f/b active stretch x 10, with handout to come. PT-OP-T Assessment and Plan Start: 03/23/20 17:52 Freq: Status: Active Protocol: Document 04/26/20 13:37 LRN (Rec: 04/26/20 14:23 LRN [id number]) Physical Therapy Assessment Goals Seven Impairment Poor bowel consistency (1-7 type on [place] Stool Scale) Short Term Goal (STG) Pt educated in bowel massage. STG Duration 04/16/19 (04/12/20: MET GOAL) Produce Team Lead Goal (LTG) Improve bowel consistency to type 3-4 on [place] Stool Scale. LTG Duration 07/04/20 Six Impairment Tenderness at PF clock at 3-6 O'Clock and mildly at 6-9 O' Clock Produce Team Lead Goal (LTG) Pt has decreased complaints of tenderness at the PF clock at 3-6 O'Clock and mildly at 6-9 O'Clock. LTG Duration 07/04/20 Five Impairment Lacks appropriate knowledge of proper Thoracic/ intraabdominal pressure mgmt Short Term Goal (STG) Pt will be educated in proper use of breathing techniques to decrease intraabdominal pressure with transfers. STG Duration 04/23/19 (04/26/20: MET GOAL) Produce Team Lead Goal (LTG) Pt will be educated in proper transfer techniques (hip hinge ) to minimize intraabdominal pressure with transfer sit <-> stand. LTG Duration 07/04/20 (04/26/20: MET GOAL) Four Impairment Assymmetry hips Short Term Goal (STG) Pt will be independent in a self care HEP of hip stretches to improve symmetry of hip rotators. STG Duration 04/30/19 (04/26/20: Initiated) Produce Team Lead Goal (LTG) Pt will demonstrate improved symmetry of hip mobility with rotation. LTG Duration 07/04/20 Three Impairment Increased urinary frequency ( 10x/day & 5x/night) Short Term Goal (STG) Pt will be educated in urinary delay technique. STG Duration 04/16/19 (04/12/20: MET GOAL) Correction Goal (LTG) Decrease Urinary frequency to 5-7x/day and 1-2x/night. LTG Duration 07/04/20 Two Impairment Decreased PF strength ( anterior 0/5) & endurance (3 secs, Quick Flicks 5x) Short Term Goal (STG) Pt will demonstrate a clitoral nod with a PF contraction. STG Duration 05/07/19 Produce Team Lead Goal (LTG) Pt will be able to hold a PF contraction for 10 secs and Quick Contractions 10x prior to fatigue. LTG Duration 07/04/20 One Impairment Lacks appropriate self care HEP Correction Goal (LTG) Pt will be independent in a progressive self care HEP to help manage her condition. LTG Duration 07/04/20 (04/12/20: Progressing) Progress Towards Goals Progress Comments Goal #5: STG & LTG MET. Goal #4: Progressing. Pt less tender in abdominal region making deep breathing comfortable. Assessment Summary Assessment Pt no longer extremely tender in abdomen. Able to do MFR with pain only in the R upper Quadrant near midline, ~2 below rib cage. Pt feeling more comfortable in abdominal region in general. Physical Therapy Plan Frequency and Duration Frequency of Treatment 1x/Week Plan of Care Start Date 04/05/20 Plan of Care End Date 07/04/20 Next Visit Focus/Plan Next Note Type Treatment Note Next Visit Plan Education in proper PF care. Issue self care HEP of hip stretches (Fig 4, ADD's, Hamstring, ?hip flexors) to improve symmetry of hip rotators. MFR to relax PF: PF clock at 3-6 O'Clock and mildly at 6-9 O'Clock. Therapeutic ex to decrease PF tone to improve PF strength and endurance, training for proper PF contraction in isolation of substitute muscles, core stabilization. Manual therapy (PF, and mobility of scar/fascia, bladder, uterus, inferior border of liver and gall bladder), and to decrease frequency of urination through self stretching (PF with and w/o dilator, & hips), Possible use of E-Stim to decrease pain if needed. If frequency not improved, try biofeedback with vaginal/ rectal/surface sensor(s) for management of PF tone.
--- NOTE | 2020-05-03 17:17 | PT.OTN ---
Current Diagnoses Constipation, unspecified (05/03/20) Stiffness of left hip, not elsewhere classified (05/03/20) Other specified disorders of muscle (05/03/20) Overactive bladder (05/03/20) Pelvic and perineal pain (05/03/20) Other difficulties with micturition (05/03/20) Other specified postprocedural states (05/03/20) Physical Therapy Treatment Note PT-OP-A Visit Information Start: 03/23/20 17:52 Freq: Status: Active Protocol: Document 05/03/20 13:47 LRN (Rec: 05/03/20 14:23 LRN [id number]) Out-Patient Physical Therapy Visit Information Visit Information Visit Type Treatment Note Visit Start Time 13:47 Visit Stop Time 14:19 Total Visit Minutes 39 Visit Number 5 Evaluation Information Evaluation Date 04/05/20 Precautions Precautions Hx of Cervical spinal fusion and low back pain since teenager Osteoporosis Hx of Tachycardia & paroxysmal atrial fibrillation PT-OP-B Current Condition Start: 03/23/20 17:52 Freq: Status: Active Protocol: Document 04/05/20 13:35 LRN (Rec: 04/05/20 14:25 LRN [id number]) Current Condition History of Current Condition Onset Date September 29, 2019 Current Complaints Having trouble initiating & urinating, frequency of voiding w/constipation History of Current Condition Prolapsed uterus and then had a lift of all (uterus, bladder & rectum) and is having a slow recovery. Was having a lot of pelvic pain and was having trouble sleeping. Was put on oxybutyn and it was horrible. Then thought the problem was constipation and so was put on stool softner and the pain is better. Now problem is that it takes a long time before she can urinate. she is straddling the toilet to help with flow of urination (larger). Her pain with constipation is in the lower abdomen. Has a little urinary leakage with sneezing (improved since surgery). No longer has urge incontinence. When trying to get to sleep she urinates 3-4 times per hour. Prior Treatments and Tests None Future Testing and Treatments Planned None. No other appts with Dr. Benz. Developmental History Developmental History Since the surgery has had IBS, BM is either too quick or constipated. Doesn't take Senokot at night, which is better than Miralax. Treatment Goals Patient/Caregiver Goals Pt goal is: - to be able to increase flow and volume of urine when urinating - to not have to push to initiate urine flow. She states she can stop urine flow, but can't keep it going and sometimes needs to push to initiate flow of urine. Prior Functional Status Baseline Function- ADL's Independent Baseline Function- Mobility Independent Baseline Function- Other Strong urge to urinate without leakage. Waking one time per night. Current Functional Impairments (Reported) Functional Limitations- ADL's Difficulty starting urine flow sometimes. Urinates 3-4 times before being able to go to sleep. Pelvic pain that appears related to her constipation condition. Personal Factors Other Personal Factors That May Effect LBP rated 1/10, (LBP since Therapy/Recovery teenager with intermittent pain onset. Recent onset 2 weeks ago, ending after a week ). Cervical spinal surgery (fused ) PT-OP-C Subjective Start: 03/23/20 17:52 Freq: Status: Active Protocol: Document 05/03/20 13:47 LRN (Rec: 05/03/20 14:23 LRN [id number]) OP-PT Subjective Patient Comments Patient Comments Up/down, today is great. Bowels are working. When they work, the urination is working. Voiding very 3-4 hours. When the bowels are working there if no tenderness of the abdomen an bladder. PT-OP-I Pelvic Floor Start: 03/23/20 17:52 Freq: Status: Active Protocol: Document 04/05/20 13:35 LRN (Rec: 04/05/20 14:25 LRN [id number]) Pelvic Floor Assessment Urine Leakage Size Small Leakage Cause Cough,Sneeze Bowel Bowel Symptoms Constipation Hitchcock Stool Chart Comments Types range from 1-7 on chart Pelvic Clock Pelvic Clock 3-6 Tenderness Pelvic Clock 6-9 Tenderness Prolapse Cystocele Grade 2 Rectocele Grade 1 Prolapse Comments Can feel end uterus with finger inserted to a little past 2nd knuckle. Perineal Descent Resting Present Bearing Present Contraction Ability Manual Muscle Testing Left 3 Manual Muscle Testing Right 3 Manual Muscle Testing Anterior 1 Manual Muscle Testing Posterior 3 Muscle Endurance (Seconds) 3 Number of Quick Contractions In 10 5 Seconds PT-OP-J Posture/Palpation/Skin Start: 03/23/20 17:52 Freq: Status: Active Protocol: Document 04/05/20 13:35 LRN (Rec: 12/28/20 14:25 LRN [id number]) Posture Evaluation Position Standing Evaluation View All positions Head/C-Spine Posture Neutral Position Pelvis Posture Anteriorly Tilted Knee Posture (L) Genu Recurvatum,(R) Genu Recurvatum PT-OP-K Range of Motion Start: 03/23/20 17:52 Freq: Status: Active Protocol: Document 04/05/20 13:35 LRN (Rec: 04/05/20 14:25 LRN [id number]) Lumbar Spine Range of Motion Lumbar Spine Active Degrees Testing Position Standing Flexion 117 Extension 20 Rotation Left 30 Rotation Right 30 Lateral Flexion Left 15 Lateral Flexion Right 15 Comments Good mobility without pain. Hip Goniometric Range of Motion Hip Right Passive Testing Position Supine Internal Rotation 45 External Rotation 70 Left Passive Testing Position Supine Internal Rotation 40 External Rotation 60 PT-OP-M Strength Start: 03/23/20 17:52 Freq: Status: Active Protocol: Document 04/05/20 13:35 LRN (Rec: 04/05/20 14:25 LRN [id number]) Trunk Strength Trunk Manual Muscle Testing Testing Position Supine Core Stabilization Mild loss of core stability with resisted SLR, good lateral stability. Hip Strength Hip Manual Muscle Testing Right Comments Hip strength is generally 5/5. Left Flexion (L2) 4 Good Comments Hip strength is generally 5/5 except as indicated above. PT-OP-Q Treatments Start: 03/23/20 17:52 Freq: Status: Active Protocol: Document 05/03/20 13:47 LRN (Rec: 05/03/20 14:23 LRN [id number]) Therapeutic Exercises Supine Exercises Hip flexor stretch Supine Exercise Name Hip flexor stretch f/b active stretch Reps/Minutes 6' Deep Breathing Supine Exercise Name Deep Breathing Reps/Minutes 9' Comments Pt needed phys cuing to allow abdomen to rise and fill R lung side. Fig 4 stretch Supine Exercise Name Fig 4 stretch f/b active stretch x 10 Reps/Minutes 6' Therapeutic Activity Therapeutic Activity Transfer training Name Stand<>Sit; Sit <> Supine Reps/Minutes 9' Comments Breathing training. Self-Care/Home Management Treatment Education Patient Education Home Exercise Program Other Education Pt education in general vulvar care and genital hygiene with handouts issued. Activities Self-Care/Home Management Activities Issued & reviewed HEP: Deep Breathing Fig 4 & Iliopsoas stretch. PT-OP-T Assessment and Plan Start: 03/23/20 17:52 Freq: Status: Active Protocol: Document 05/03/20 13:47 LRN (Rec: 05/03/20 14:23 LRN [id number]) Physical Therapy Assessment Goals Seven Impairment Poor bowel consistency (1-7 type on Hitchcock Stool Scale) Short Term Goal (STG) Pt educated in bowel massage. STG Duration 04/16/19 (04/12/20: MET GOAL) Compound Coating Machine Offbearer Goal (LTG) Improve bowel consistency to type 3-4 on Hitchcock Stool Scale. LTG Duration 07/04/20 (05/03/20: Pt reporting variable stool types ) Six Impairment Tenderness at PF clock at 3-6 O'Clock and mildly at 6-9 O' Clock Compound Coating Machine Offbearer Goal (LTG) Pt has decreased complaints of tenderness at the PF clock at 3-6 O'Clock and mildly at 6-9 O'Clock. LTG Duration 07/04/20 Five Impairment Lacks appropriate knowledge of proper Thoracic/ intraabdominal pressure mgmt Short Term Goal (STG) Pt will be educated in proper use of breathing techniques to decrease intraabdominal pressure with transfers. STG Duration 04/23/19 (04/26/20: MET GOAL) Penitentiary Goal (LTG) Pt will be educated in proper transfer techniques (hip hinge ) to minimize intraabdominal pressure with transfer sit <-> stand. LTG Duration 07/04/20 (04/26/20: MET GOAL) Four Impairment Assymmetry hips Short Term Goal (STG) Pt will be independent in a self care HEP of hip stretches to improve symmetry of hip rotators. STG Duration 04/30/19 (04/26/20: Initiated) Compound Coating Machine Offbearer Goal (LTG) Pt will demonstrate improved symmetry of hip mobility with rotation. LTG Duration 07/04/20 (05/03/20: Issued HEP : hip ER stretch) Three Impairment Increased urinary frequency ( 10x/day & 5x/night) Short Term Goal (STG) Pt will be educated in urinary delay technique. STG Duration 04/16/19 (04/12/20: MET GOAL) Penitentiary Goal (LTG) Decrease Urinary frequency to 5-7x/day and 1-2x/night. LTG Duration 07/04/20 (05/03/20: Pt reporting variable, dependent on stools) Two Impairment Decreased PF strength ( anterior 0/5) & endurance (3 secs, Quick Flicks 5x) Short Term Goal (STG) Pt will demonstrate a clitoral nod with a PF contraction. STG Duration 05/07/19 Penitentiary Goal (LTG) Pt will be able to hold a PF contraction for 10 secs and Quick Contractions 10x prior to fatigue. LTG Duration 07/04/20 One Impairment Lacks appropriate self care HEP Penitentiary Goal (LTG) Pt will be independent in a progressive self care HEP to help manage her condition. LTG Duration 07/04/20 (05/03/20: Progressing) Progress Towards Goals Progress Comments Progressed pt's HEP to improve hip mobility. Assessment Summary Assessment Pt's urinary frequency problem is directly affected by bowel function. She reports being normal when her bowels are regular. She is working on increasing her fluid intake to improve bowel function. Pt very receptive to handouts regarding PF care. Physical Therapy Plan Frequency and Duration Frequency of Treatment 1x/Week Plan of Care Start Date 04/05/20 Plan of Care End Date 07/04/20 Next Visit Focus/Plan Next Note Type Treatment Note Next Visit Plan Issue self care HEP of hip stretches (ADD's, Hamstring) to improve symmetry of hip rotators. PF stretching of MFR to relax PF: PF clock at 3-6 O'Clock and mildly at 6-9 O'Clock. Ex to DECREASE PF tone to improve PF strength and endurance, training for proper PF contraction in isolation of substitute muscles, core stabilization. Manual therapy (PF, and mobility of scar/fascia, bladder, uterus, inferior border of liver and gall bladder), and to decrease frequency of urination through self stretching (PF with and w/o dilator, & hips), Possible use of E-Stim to decrease pain if needed. If frequency not improved, try biofeedback with vaginal/ rectal/surface sensor(s) for management of PF tone.
--- NOTE | 2020-05-10 16:57 | PT.OTN ---
Current Diagnoses Constipation, unspecified (05/10/20) Stiffness of left hip, not elsewhere classified (05/10/20) Other specified disorders of muscle (05/10/20) Overactive bladder (05/10/20) Pelvic and perineal pain (05/10/20) Other difficulties with micturition (05/10/20) Other specified postprocedural states (05/10/20) Physical Therapy Treatment Note PT-OP-A Visit Information Start: 03/23/20 17:52 Freq: Status: Active Protocol: Document 05/10/20 13:37 LRN (Rec: 05/10/20 14:20 LRN [id number]) Out-Patient Physical Therapy Visit Information Visit Information Visit Type Treatment Note Visit Start Time 13:37 Visit Stop Time 14:15 Total Visit Minutes 38 Visit Number 6 Evaluation Information Evaluation Date 04/05/20 Precautions Precautions Hx of Cervical spinal fusion and low back pain since teenager Osteoporosis Hx of Tachycardia & paroxysmal atrial fibrillation PT-OP-B Current Condition Start: 03/23/20 17:52 Freq: Status: Active Protocol: Document 04/05/20 13:35 LRN (Rec: 04/05/20 14:25 LRN [id number]) Current Condition History of Current Condition Onset Date September 29, 2019 Current Complaints Having trouble initiating & urinating, frequency of voiding w/constipation History of Current Condition Prolapsed uterus and then had a lift of all (uterus, bladder & rectum) and is having a slow recovery. Was having a lot of pelvic pain and was having trouble sleeping. Was put on oxybutyn and it was horrible. Then thought the problem was constipation and so was put on stool softner and the pain is better. Now problem is that it takes a long time before she can urinate. she is straddling the toilet to help with flow of urination (larger). Her pain with constipation is in the lower abdomen. Has a little urinary leakage with sneezing (improved since surgery). No longer has urge incontinence. When trying to get to sleep she urinates 3-4 times per hour. Prior Treatments and Tests None Future Testing and Treatments Planned None. No other appts with Dr. Benz. Developmental History Developmental History Since the surgery has had IBS, BM is either too quick or constipated. Doesn't take Senokot at night, which is better than Miralax. Treatment Goals Patient/Caregiver Goals Pt goal is: - to be able to increase flow and volume of urine when urinating - to not have to push to initiate urine flow. She states she can stop urine flow, but can't keep it going and sometimes needs to push to initiate flow of urine. Prior Functional Status Baseline Function- ADL's Independent Baseline Function- Mobility Independent Baseline Function- Other Strong urge to urinate without leakage. Waking one time per night. Current Functional Impairments (Reported) Functional Limitations- ADL's Difficulty starting urine flow sometimes. Urinates 3-4 times before being able to go to sleep. Pelvic pain that appears related to her constipation condition. Personal Factors Other Personal Factors That May Effect LBP rated 1/10, (LBP since Therapy/Recovery teenager with intermittent pain onset. Recent onset 2 weeks ago, ending after a week ). Cervical spinal surgery (fused ) PT-OP-C Subjective Start: 03/23/20 17:52 Freq: Status: Active Protocol: Document 05/10/20 13:37 LRN (Rec: 05/10/20 14:20 LRN [id number]) OP-PT Subjective Patient Comments Patient Comments Good week, everything worked . Bowel mvmts a couple times a day and urinates when has bowel movement. Daily urination ~5-7x/day and 1-2x/ night. PT-OP-I Pelvic Floor Start: 03/23/20 17:52 Freq: Status: Active Protocol: Document 04/05/20 13:35 LRN (Rec: 04/05/20 14:25 LRN [id number]) Pelvic Floor Assessment Urine Leakage Size Small Leakage Cause Cough,Sneeze Bowel Bowel Symptoms Constipation [place] Stool Chart Comments Types range from 1-7 on chart Pelvic Clock Pelvic Clock 3-6 Tenderness Pelvic Clock 6-9 Tenderness Prolapse Cystocele Grade 2 Rectocele Grade 1 Prolapse Comments Can feel end uterus with finger inserted to a little past 2nd knuckle. Perineal Descent Resting Present Bearing Present Contraction Ability Manual Muscle Testing Left 3 Manual Muscle Testing Right 3 Manual Muscle Testing Anterior 1 Manual Muscle Testing Posterior 3 Muscle Endurance (Seconds) 3 Number of Quick Contractions In 10 5 Seconds PT-OP-J Posture/Palpation/Skin Start: 03/23/20 17:52 Freq: Status: Active Protocol: Document 04/05/20 13:35 LRN (Rec: 04/05/20 14:25 LRN [id number]) Posture Evaluation Position Standing Evaluation View All positions Head/C-Spine Posture Neutral Position Pelvis Posture Anteriorly Tilted Knee Posture (L) Genu Recurvatum,(R) Genu Recurvatum PT-OP-K Range of Motion Start: 03/23/20 17:52 Freq: Status: Active Protocol: Document 04/05/20 13:35 LRN (Rec: 04/05/20 14:25 LRN [id number]) Lumbar Spine Range of Motion Lumbar Spine Active Degrees Testing Position Standing Flexion 117 Extension 20 Rotation Left 30 Rotation Right 30 Lateral Flexion Left 15 Lateral Flexion Right 15 Comments Good mobility without pain. Hip Goniometric Range of Motion Hip Right Passive Testing Position Supine Internal Rotation 45 External Rotation 70 Left Passive Testing Position Supine Internal Rotation 40 External Rotation 60 PT-OP-M Strength Start: 03/23/20 17:52 Freq: Status: Active Protocol: Document 04/05/20 13:35 LRN (Rec: 04/05/20 14:25 LRN [id number]) Trunk Strength Trunk Manual Muscle Testing Testing Position Supine Core Stabilization Mild loss of core stability with resisted SLR, good lateral stability. Hip Strength Hip Manual Muscle Testing Right Comments Hip strength is generally 5/5. Left Flexion (L2) 4 Good Comments Hip strength is generally 5/5 except as indicated above. PT-OP-Q Treatments Start: 03/23/20 17:52 Freq: Status: Active Protocol: Document 05/10/20 13:37 LRN (Rec: 05/10/20 14:20 LRN [id number]) Therapeutic Exercises Supine Exercises Happy Baby Pose Supine Exercise Name PF stretch Side bilateral Reps/Minutes 2' Hamstring stretch Supine Exercise Name Hamstring stretch (supine & reviewed in sitting) Side bilateral Reps/Minutes 6' Extra time for training & positioning Hip flexor stretch Supine Exercise Name Hip flexor stretch f/b active stretch Reps/Minutes 6' Fig 4 stretch Supine Exercise Name Fig 4 stretch f/b active stretch x 10 Reps/Minutes 6' Sitting Exercises Hip AD stretch Sitting Exercise Name Hip AD's stretch Side bilateral Reps/Minutes 4' Comments Extra time for training & positioning Therapeutic Activity Therapeutic Activity Transfer training Name Sit <> Supine Reps/Minutes 8' Comments Pt needed repetition of learning, phys & verbal cuing. Self-Care/Home Management Treatment Education Patient Education Home Exercise Program Other Education Educted pt in Happy Baby Pose to do as HEP. Discussed treatment plan for next session of internal assessment and possible manual and/or E-Stim treatments. Activities Self-Care/Home Management Activities Issued & reviewed HEP: Hamstring & hip AD stretch in supine and sitting. PT-OP-T Assessment and Plan Start: 03/23/20 17:52 Freq: Status: Active Protocol: Document 05/10/20 13:37 LRN (Rec: 05/10/20 14:20 LRN [id number]) Physical Therapy Assessment Goals Seven Impairment Poor bowel consistency (1-7 type on [place] Stool Scale) Short Term Goal (STG) Pt educated in bowel massage. STG Duration 04/16/19 (04/12/20: MET GOAL) Rehabilitation Medicine Physician Goal (LTG) Improve bowel consistency to type 3-4 on [place] Stool Scale. (05/10/20: Type 4 BM's) LTG Duration 07/04/20 (05/10/20: MET GOAL) Six Impairment Tenderness at PF clock at 3-6 O'Clock and mildly at 6-9 O' Clock Custodial Goal (LTG) Pt has decreased complaints of tenderness at the PF clock at 3-6 O'Clock and mildly at 6-9 O'Clock. LTG Duration 07/04/20 Four Impairment Assymmetry hips Short Term Goal (STG) Pt will be independent in a self care HEP of hip stretches to improve symmetry of hip rotators. STG Duration 04/30/19 (04/26/20: Initiated) Rehabilitation Medicine Physician Goal (LTG) Pt will demonstrate improved symmetry of hip mobility with rotation. LTG Duration 07/04/20 (05/03/20: Issued HEP : hip ER stretch) Three Impairment Increased urinary frequency ( 10x/day & 5x/night) Short Term Goal (STG) Pt will be educated in urinary delay technique. STG Duration 04/16/19 (04/12/20: MET GOAL) Custodial Goal (LTG) Decrease Urinary frequency to 5-7x/day and 1-2x/night. (05/10/20: 5-7x/day, Nighttime 1-2x/night) LTG Duration 07/04/20 (05/10/20: MET GOAL) Two Impairment Decreased PF strength ( anterior 0/5) & endurance (3 secs, Quick Flicks 5x) Short Term Goal (STG) Pt will demonstrate a clitoral nod with a PF contraction. STG Duration 05/07/19 Rehabilitation Medicine Physician Goal (LTG) Pt will be able to hold a PF contraction for 10 secs and Quick Contractions 10x prior to fatigue. LTG Duration 07/04/20 One Impairment Lacks appropriate self care HEP Rehabilitation Medicine Physician Goal (LTG) Pt will be independent in a progressive self care HEP to help manage her condition. LTG Duration 07/04/20 (05/10/20: Progressing) Progress Towards Goals Progress Comments BM's normalized (type 4) & Urinary frequency has reduced with LTG # 3 MET. HEP: Stretch: Issued: Hip AD, Hamstring, Happy Baby Pose. Assessment Summary Assessment Pt has poor transfer technique and has good awareness of the need for proper breathing with transfers. She tends to be fast with stretches. Appears to have a good understanding of new exercises and seems happy with progress of reduced urinary frequency due to improved bowel function . Physical Therapy Plan Frequency and Duration Frequency of Treatment 1x/Week Plan of Care Start Date 04/05/20 Plan of Care End Date 07/04/20 Next Visit Focus/Plan Next Note Type Treatment Note Next Visit Plan Review hip stretches ( hamstring, Hip AD's, & Happy Baby Pose). PF stretching of MFR to relax PF: PF clock at 3-6 O'Clock and mildly at 6-9 O'Clock. Ex to DECREASE PF tone to improve PF strength and endurance, training for proper PF contraction in isolation of substitute muscles, core stabilization. Manual therapy (PF, and mobility of scar/fascia, bladder, uterus, inferior border of liver and gall bladder), and to decrease frequency of urination through self stretching (PF with and w/o dilator, & hips), Use of E-Stim to decrease pain if needed, try biofeedback with vaginal/rectal/surface sensor(s) for management of PF tone.
--- NOTE | 2020-05-17 16:03 | PT.OTN ---
Current Diagnoses Constipation, unspecified (05/17/20) Stiffness of left hip, not elsewhere classified (05/17/20) Other specified disorders of muscle (05/17/20) Overactive bladder (05/17/20) Pelvic and perineal pain (05/17/20) Other difficulties with micturition (05/17/20) Other specified postprocedural states (05/17/20) Physical Therapy Treatment Note PT-OP-A Visit Information Start: 03/23/20 17:52 Freq: Status: Active Protocol: Document 05/17/20 13:30 LRN (Rec: 05/17/20 14:19 LRN [id number]) Out-Patient Physical Therapy Visit Information Visit Information Visit Type Treatment Note Visit Start Time 13:30 Visit Stop Time 14:13 Total Visit Minutes 43 Visit Number 7 Evaluation Information Evaluation Date 04/05/20 Precautions Precautions Hx of Cervical spinal fusion and low back pain since teenager Osteoporosis Hx of Tachycardia & paroxysmal atrial fibrillation PT-OP-B Current Condition Start: 03/23/20 17:52 Freq: Status: Active Protocol: Document 04/05/20 13:35 LRN (Rec: 04/05/20 14:25 LRN [id number]) Current Condition History of Current Condition Onset Date September 29, 2019 Current Complaints Having trouble initiating & urinating, frequency of voiding w/constipation History of Current Condition Prolapsed uterus and then had a lift of all (uterus, bladder & rectum) and is having a slow recovery. Was having a lot of pelvic pain and was having trouble sleeping. Was put on oxybutyn and it was horrible. Then thought the problem was constipation and so was put on stool softner and the pain is better. Now problem is that it takes a long time before she can urinate. she is straddling the toilet to help with flow of urination (larger). Her pain with constipation is in the lower abdomen. Has a little urinary leakage with sneezing (improved since surgery). No longer has urge incontinence. When trying to get to sleep she urinates 3-4 times per hour. Prior Treatments and Tests None Future Testing and Treatments Planned None. No other appts with Dr. Benz. Developmental History Developmental History Since the surgery has had IBS, BM is either too quick or constipated. Doesn't take Senokot at night, which is better than Miralax. Treatment Goals Patient/Caregiver Goals Pt goal is: - to be able to increase flow and volume of urine when urinating - to not have to push to initiate urine flow. She states she can stop urine flow, but can't keep it going and sometimes needs to push to initiate flow of urine. Prior Functional Status Baseline Function- ADL's Independent Baseline Function- Mobility Independent Baseline Function- Other Strong urge to urinate without leakage. Waking one time per night. Current Functional Impairments (Reported) Functional Limitations- ADL's Difficulty starting urine flow sometimes. Urinates 3-4 times before being able to go to sleep. Pelvic pain that appears related to her constipation condition. Personal Factors Other Personal Factors That May Effect LBP rated 1/10, (LBP since Therapy/Recovery teenager with intermittent pain onset. Recent onset 2 weeks ago, ending after a week ). Cervical spinal surgery (fused ) PT-OP-C Subjective Start: 03/23/20 17:52 Freq: Status: Active Protocol: Document 05/17/20 13:30 LRN (Rec: 05/17/20 14:19 LRN [id number]) OP-PT Subjective Patient Comments Patient Comments Been good with BM's except last night, too much to drink. Has been waking 1x/night and hasn't been bothered by urinating during the day. States she is 50% better. Before bowel movements she is using a suppository sometimes before a BM; she takes a Senacot 2 in AM and 1 in PM; her goal is to take 1x AM & PM . PT-OP-I Pelvic Floor Start: 03/23/20 17:52 Freq: Status: Active Protocol: Document 05/17/20 13:30 LRN (Rec: 05/17/20 14:19 LRN [id number]) Pelvic Floor Assessment Contraction Ability Manual Muscle Testing Left 3 Manual Muscle Testing Right 3 Manual Muscle Testing Anterior 3 Manual Muscle Testing Posterior 3 Muscle Endurance (Seconds) 7 Number of Quick Contractions In 10 10 Seconds PT-OP-J Posture/Palpation/Skin Start: 03/23/20 17:52 Freq: Status: Active Protocol: Document 04/05/20 13:35 LRN (Rec: 04/05/20 14:25 LRN [id number]) Posture Evaluation Position Standing Evaluation View All positions Head/C-Spine Posture Neutral Position Pelvis Posture Anteriorly Tilted Knee Posture (L) Genu Recurvatum,(R) Genu Recurvatum PT-OP-K Range of Motion Start: 03/23/20 17:52 Freq: Status: Active Protocol: Document 04/05/20 13:35 LRN (Rec: 04/05/20 14:25 LRN [id number]) Lumbar Spine Range of Motion Lumbar Spine Active Degrees Testing Position Standing Flexion 117 Extension 20 Rotation Left 30 Rotation Right 30 Lateral Flexion Left 15 Lateral Flexion Right 15 Comments Good mobility without pain. Hip Goniometric Range of Motion Hip Right Passive Testing Position Supine Internal Rotation 45 External Rotation 70 Left Passive Testing Position Supine Internal Rotation 40 External Rotation 60 PT-OP-M Strength Start: 03/23/20 17:52 Freq: Status: Active Protocol: Document 04/05/20 13:35 LRN (Rec: 04/05/20 14:25 LRN [id number]) Trunk Strength Trunk Manual Muscle Testing Testing Position Supine Core Stabilization Mild loss of core stability with resisted SLR, good lateral stability. Hip Strength Hip Manual Muscle Testing Right Comments Hip strength is generally 5/5. Left Flexion (L2) 4 Good Comments Hip strength is generally 5/5 except as indicated above. PT-OP-Q Treatments Start: 03/23/20 17:52 Freq: Status: Active Protocol: Document 05/17/20 13:30 LRN (Rec: 05/17/20 14:19 LRN [id number]) Therapeutic Exercises Supine Exercises PF contraction Supine Exercise Name PF contraction: Long holds & Quick Flicks with & w/o substitute ms assist Reps/Minutes 22' Happy Baby Pose Supine Exercise Name PF stretch Side bilateral Reps/Minutes 2' Hamstring stretch Supine Exercise Name Hamstring stretch (supine & reviewed in sitting) Side bilateral Reps/Minutes 6' Extra time for training & positioning Deep Breathing Supine Exercise Name Deep Breathing Reps/Minutes 1' Comments Pt needed phys cuing to allow abdomen to rise and fill R lung side. Fig 4 stretch Supine Exercise Name Fig 4 stretch f/b active stretch x 10 Reps/Minutes 6' Sitting Exercises Hip AD stretch Sitting Exercise Name Hip AD's stretch Side bilateral Reps/Minutes 4' Comments Extra time for training & positioning Self-Care/Home Management Treatment Education Patient Education Home Exercise Program Other Education Discussed pt goals and focus of therapy, goals of symmetry of hips and able to do long hold 10 secs PF contraction. PT-OP-T Assessment and Plan Start: 03/23/20 17:52 Freq: Status: Active Protocol: Document 05/17/20 13:30 LRN (Rec: 05/17/20 14:19 LRN [id number]) Physical Therapy Assessment Goals Seven Impairment Poor bowel consistency (1-7 type on [place] Stool Scale) Short Term Goal (STG) Pt educated in bowel massage. STG Duration 04/16/19 (04/12/20: MET GOAL) Technical Engineer Goal (LTG) Improve bowel consistency to type 3-4 on [place] Stool Scale. (05/10/20: Type 4 BM's) LTG Duration 07/04/20 (05/10/20: MET GOAL) Six Impairment Tenderness at PF clock at 3-6 O'Clock and mildly at 6-9 O' Clock Halfway Goal (LTG) Pt has decreased complaints of tenderness at the PF clock at 3-6 O'Clock and mildly at 6-9 O'Clock. (05/17/20: No tenderness) LTG Duration 07/04/20 (05/17/20: MET GOAL) Four Impairment Assymmetry hips Short Term Goal (STG) Pt will be independent in a self care HEP of hip stretches to improve symmetry of hip rotators. STG Duration 04/30/19 (05/17/20: MET GOAL) Technical Engineer Goal (LTG) Pt will demonstrate improved symmetry of hip mobility with rotation. (05/03/20: Issued HEP: hip ER stretch; 05/17/20: Indep with IR stretches) LTG Duration 07/04/20 Three Impairment Increased urinary frequency ( 10x/day & 5x/night) Short Term Goal (STG) Pt will be educated in urinary delay technique. STG Duration 04/16/19 (04/12/20: MET GOAL) Halfway Goal (LTG) Decrease Urinary frequency to 5-7x/day and 1-2x/night. (05/10/20: 5-7x/day, Nighttime 1-2x/night) LTG Duration 07/04/20 (05/10/20: MET GOAL) Two Impairment Decreased PF strength ( anterior 0/5) & endurance (3 secs, Quick Flicks 5x) Short Term Goal (STG) Pt will demonstrate a clitoral nod with a PF contraction. (05/17/20: Very slight clitoral nod noted) STG Duration 05/07/19 Technical Engineer Goal (LTG) Pt will be able to hold a PF contraction for 10 secs and Quick Contractions 10x prior to fatigue. (05/17/20: Long hold 7 secs, Quick Flicks 10x) LTG Duration 07/04/20 (05/17/20: Partially met) One Impairment Lacks appropriate self care HEP Halfway Goal (LTG) Pt will be independent in a progressive self care HEP to help manage her condition. LTG Duration 07/04/20 (05/10/20: Progressing) Progress Towards Goals Progress Comments PF long holds has improved to 7 secs and she is able to perform 10 quick flicks without fatigue. Assessment Summary Assessment Pt has good understanding of her hip rot & hamstring stretches. No abdominal tenderness or soft tissue restrictions and no pain in PF clock with palpation; therefore no need for abdominal and internal PF stretching. PF long holds has improved to 7 secs and she is able to perform 10 quick flicks without fatigue. Physical Therapy Plan Frequency and Duration Frequency of Treatment 1x/Week Plan of Care Start Date 04/05/20 Plan of Care End Date 07/04/20 Next Visit Focus/Plan Next Note Type Discharge Summary Next Visit Plan Recheck hip ROM for symmetry. Ex to DECREASE PF tone to INCREASE PF strength and endurance, training for proper PF contraction in isolation of substitute muscles, core stabilization. Pt goal is to take 1x AM & PM currently takes 2 AM & 1 PM. DC in 2 visits with completion of prgram and since pt having cataract surgery the first june, she is requesting DC before surgery.
--- NOTE | 2020-05-31 17:16 | PT.OTN ---
Current Diagnoses Constipation, unspecified (05/31/20) Stiffness of left hip, not elsewhere classified (05/31/20) Other specified disorders of muscle (05/31/20) Overactive bladder (05/31/20) Pelvic and perineal pain (05/31/20) Other difficulties with micturition (05/31/20) Other specified postprocedural states (05/31/20) Physical Therapy Treatment Note PT-OP-A Visit Information Start: 03/23/20 17:52 Freq: Status: Active Protocol: Document 05/31/20 13:42 LRN (Rec: 05/31/20 14:20 LRN [id number]) Out-Patient Physical Therapy Visit Information Visit Information Visit Type Treatment Note Visit Start Time 13:42 Visit Stop Time 14:20 Total Visit Minutes 38 Visit Number 8 Evaluation Information Evaluation Date 04/05/20 Precautions Precautions Hx of Cervical spinal fusion and low back pain since teenager Osteoporosis Hx of Tachycardia & paroxysmal atrial fibrillation PT-OP-B Current Condition Start: 03/23/20 17:52 Freq: Status: Active Protocol: Document 04/05/20 13:35 LRN (Rec: 04/05/20 14:25 LRN [id number]) Current Condition History of Current Condition Onset Date September 29, 2019 Current Complaints Having trouble initiating & urinating, frequency of voiding w/constipation History of Current Condition Prolapsed uterus and then had a lift of all (uterus, bladder & rectum) and is having a slow recovery. Was having a lot of pelvic pain and was having trouble sleeping. Was put on oxybutyn and it was horrible. Then thought the problem was constipation and so was put on stool softner and the pain is better. Now problem is that it takes a long time before she can urinate. she is straddling the toilet to help with flow of urination (larger). Her pain with constipation is in the lower abdomen. Has a little urinary leakage with sneezing (improved since surgery). No longer has urge incontinence. When trying to get to sleep she urinates 3-4 times per hour. Prior Treatments and Tests None Future Testing and Treatments Planned None. No other appts with Dr. Benz. Developmental History Developmental History Since the surgery has had IBS, BM is either too quick or constipated. Doesn't take Senokot at night, which is better than Miralax. Treatment Goals Patient/Caregiver Goals Pt goal is: - to be able to increase flow and volume of urine when urinating - to not have to push to initiate urine flow. She states she can stop urine flow, but can't keep it going and sometimes needs to push to initiate flow of urine. Prior Functional Status Baseline Function- ADL's Independent Baseline Function- Mobility Independent Baseline Function- Other Strong urge to urinate without leakage. Waking one time per night. Current Functional Impairments (Reported) Functional Limitations- ADL's Difficulty starting urine flow sometimes. Urinates 3-4 times before being able to go to sleep. Pelvic pain that appears related to her constipation condition. Personal Factors Other Personal Factors That May Effect LBP rated 1/10, (LBP since Therapy/Recovery teenager with intermittent pain onset. Recent onset 2 weeks ago, ending after a week ). Cervical spinal surgery (fused ) PT-OP-C Subjective Start: 03/23/20 17:52 Freq: Status: Active Protocol: Document 05/31/20 13:42 LRN (Rec: 05/31/20 14:20 LRN [id number]) OP-PT Subjective Patient Comments Patient Comments Taking bowel med 2 AM and 1-2 at night, and pt feels happy with the way she feels and doesn't need to make of goal of 1 in AM and 1 PM. PT-OP-I Pelvic Floor Start: 03/23/20 17:52 Freq: Status: Active Protocol: Document 05/31/20 13:42 LRN (Rec: 05/31/20 14:20 LRN [id number]) Pelvic Floor Assessment Contraction Ability Manual Muscle Testing Left 3 Manual Muscle Testing Right 3 Manual Muscle Testing Anterior 3 Manual Muscle Testing Posterior 3 Muscle Endurance (Seconds) 7 Number of Quick Contractions In 10 10 Seconds PT-OP-J Posture/Palpation/Skin Start: 03/23/20 17:52 Freq: Status: Active Protocol: Document 04/05/20 13:35 LRN (Rec: 04/05/20 14:25 LRN [id number]) Posture Evaluation Position Standing Evaluation View All positions Head/C-Spine Posture Neutral Position Pelvis Posture Anteriorly Tilted Knee Posture (L) Genu Recurvatum,(R) Genu Recurvatum PT-OP-K Range of Motion Start: 03/23/20 17:52 Freq: Status: Active Protocol: Document 05/31/20 13:42 LRN (Rec: 05/31/20 14:20 LRN [id number]) Hip Goniometric Range of Motion Hip Right Passive Internal Rotation 55 External Rotation 65 Left Passive Internal Rotation 55 External Rotation 60 PT-OP-M Strength Start: 03/23/20 17:52 Freq: Status: Active Protocol: Document 04/05/20 13:35 LRN (Rec: 04/05/20 14:25 LRN [id number]) Trunk Strength Trunk Manual Muscle Testing Testing Position Supine Core Stabilization Mild loss of core stability with resisted SLR, good lateral stability. Hip Strength Hip Manual Muscle Testing Right Comments Hip strength is generally 5/5. Left Flexion (L2) 4 Good Comments Hip strength is generally 5/5 except as indicated above. PT-OP-Q Treatments Start: 03/23/20 17:52 Freq: Status: Active Protocol: Document 05/31/20 13:42 LRN (Rec: 05/31/20 14:20 LRN [id number]) Therapeutic Exercises Supine Exercises PF contraction Supine Exercise Name PF contraction: Long holds & Quick Flicks with & w/o substitute ms assist Reps/Minutes 22' Comments MMT Happy Baby Pose Supine Exercise Name PF stretch Side bilateral Reps/Minutes 2' Sitting Exercises Hamstring stretch Sitting Exercise Name Leg on plinth Side bilateral Reps/Minutes 6' Comments Extra time needed for training of proper form for exercise. Hip AD stretch Sitting Exercise Name Hip AD's stretch Side bilateral Reps/Minutes 6' Comments Extra time for training & positioning Self-Care/Home Management Treatment Education Patient Education Home Exercise Program Other Education Reviewed HEP previously issued . PT-OP-T Assessment and Plan Start: 03/23/20 17:52 Freq: Status: Active Protocol: Document 05/31/20 13:42 LRN (Rec: 05/31/20 14:20 LRN [id number]) Physical Therapy Assessment Goals Seven Impairment Poor bowel consistency (1-7 type on [place] Stool Scale) Short Term Goal (STG) Pt educated in bowel massage. STG Duration 04/16/19 (04/12/20: MET GOAL) Prison Guard Goal (LTG) Improve bowel consistency to type 3-4 on [place] Stool Scale. (05/10/20: Type 4 BM's) LTG Duration 07/04/20 (05/10/20: MET GOAL) Six Impairment Tenderness at PF clock at 3-6 O'Clock and mildly at 6-9 O' Clock Usp Goal (LTG) Pt has decreased complaints of tenderness at the PF clock at 3-6 O'Clock and mildly at 6-9 O'Clock. (05/17/20: No tenderness) LTG Duration 07/04/20 (05/17/20: MET GOAL) Five Impairment Lacks appropriate knowledge of proper Thoracic/ intraabdominal pressure mgmt Short Term Goal (STG) Pt will be educated in proper use of breathing techniques to decrease intraabdominal pressure with transfers. STG Duration 04/23/19 (04/26/20: MET GOAL) Usp Goal (LTG) Pt will be educated in proper transfer techniques (hip hinge ) to minimize intraabdominal pressure with transfer sit <-> stand. LTG Duration 07/04/20 (04/26/20: MET GOAL) Four Impairment Assymmetry hips Short Term Goal (STG) Pt will be independent in a self care HEP of hip stretches to improve symmetry of hip rotators. STG Duration 04/30/19 (05/17/20: MET GOAL) Prison Guard Goal (LTG) Pt will demonstrate improved symmetry of hip mobility with rotation. (05/03/20: Issued HEP: hip ER stretch; 05/17/20: Indep with IR stretches) LTG Duration 07/04/20 (05/31/20: MET GOAL) Three Impairment Increased urinary frequency ( 10x/day & 5x/night) Short Term Goal (STG) Pt will be educated in urinary delay technique. STG Duration 04/16/19 (04/12/20: MET GOAL) Usp Goal (LTG) Decrease Urinary frequency to 5-7x/day and 1-2x/night. (05/10/20: 5-7x/day, Nighttime 1-2x/night) LTG Duration 07/04/20 (05/10/20: MET GOAL) Two Impairment Decreased PF strength ( anterior 0/5) & endurance (3 secs, Quick Flicks 5x) Short Term Goal (STG) Pt will demonstrate a clitoral nod with a PF contraction. (05/17/20 & 05/31/20: Very slight clitoral nod noted) STG Duration 05/07/19 (2/22/21: MET GOAL) Prison Guard Goal (LTG) Pt will be able to hold a PF contraction for 10 secs and Quick Contractions 10x prior to fatigue. (05/31/20: Long hold 7 secs, Quick Flicks 10x) LTG Duration 07/04/20 (05/31/20: Partially met, Long hold only 7 secs) One Impairment Lacks appropriate self care HEP Usp Goal (LTG) Pt will be independent in a progressive self care HEP to help manage her condition. LTG Duration 07/04/20 (05/31/20: MET GOAL) Assessment Summary Assessment Pt is reporting that she feels really good. She has not had complaints of abdominal tenderness or pain and no pain in PF clock with palpation since becoming more regular with her bowels and increasing her fluid intake. She doesn' t feel urinary leakage is a problem. Her PF strength is good, but she is not yet able to hold a 10 sec long hold PF contraction. The pt has been instructed on a HEP that she will be able to continue to work towards improving her PF strength without increasing her relaxation tone. It was stressed with the pt that she will have to focus on keeping her PF relaxed after contractions. Physical Therapy Plan Discharge Physical Therapy Discharge Comments The pt is ready to be placed on her independent self care HEP. Most of her goals have been met and she can continue to work towards improving the endurance of her PF muscles. Thank you for your referral.
== END 2020-06-02 07:58 | disposition home or self-care (01) ==
LOC: PHYS 13:30
PROVIDERS: PCP Internal Medicine; Referring Provider Specialist; Visit Provider Specialist
DX: M62.89 Other specified disorders of muscle (principal); R39.198 Other difficulties with micturition; Z98.890 Other specified postprocedural states; M25.652 Stiffness of left hip, not elsewhere classified; K59.00 Constipation, unspecified; R10.2 Pelvic and perineal pain; N32.81 Overactive bladder
CPT/HCPCS: 97110; 97140; 97162; 97530; 97535

== ENCOUNTER → 2022-04-11 14:05 | Outpatient (CLI) | payer MEDICARE, SELFPAY ==
[2019-09-29 12:20] VITALS: BMI 22.9
--- NOTE | 2022-04-11 | DI.MG.S_ITS ---
BILATERAL DIGITAL SCREENING MAMMOGRAM 3D/2D WITH CAD: 04/11/2022 CLINICAL: Routine screening. Comparison is made to exams dated: 03/21/2016 mammogram - [facility], 10/09/2018 mammogram - [facility], and 03/19/2014 mammogram - [facility]. Both breasts are almost entirely fatty (category a/<25% glandular tissue). Current study was also evaluated with a Computer Aided Detection (CAD) system. No significant masses, calcifications, or other findings are seen in either breast. There has been no significant interval change. IMPRESSION: NEGATIVE There is no mammographic evidence of malignancy. A 1 year screening mammogram is recommended. Based on the Tyrer Cuzick model (a risk assessment model) the patient's lifetime risk is 2.8% and her 10 year risk is 2.1%. According to the ACR, ACS, and NCCN guidelines, an annual breast MRI exam along with mammogram is recommended if the patient's lifetime risk is 20% or greater. This exam was interpreted at Station ID: [id number]. NOTE: For mammograms, a report in lay terms will be sent to the patient. Approximately 15% of breast malignancies will not be visualized mammographically. In the management of a palpable breast mass, a negative mammogram must not discourage biopsy of a clinically suspicious lesion. Electronically Signed By: Izzy webber/adi:04/11/2022 16:06:28 letter sent: Normal Exam ACR BI-RADS Category 1: Negative [id number]
== END ==
PROVIDERS: PCP Internal Medicine; Referring Provider Internal Medicine; Visit Provider Internal Medicine
DX: Z12.31 Encounter for screening mammogram for malignant neoplasm of breast (principal)
CPT/HCPCS: 77063; 77067

== ENCOUNTER → 2023-05-17 11:10 | Outpatient (ROUT) | payer MEDICARE, SELFPAY ==
[2019-09-29 12:20] VITALS: BMI 22.9
[2023-05-21 12:36] LABS: H. Pylori Antigen Stool Negative (Negative)
== END ==
PROVIDERS: PCP Internal Medicine; Visit Provider Nurse Practitioner
DX: K21.9 Gastro-esophageal reflux disease without esophagitis (principal); R14.0 Abdominal distension (gaseous); R13.10 Dysphagia, unspecified
CPT/HCPCS: 87338

== ENCOUNTER → 2023-06-22 | Outpatient (CLI) | payer MEDICARE, SELFPAY ==
[2019-09-29 12:20] VITALS: BMI 22.9
--- NOTE | 2023-06-22 11:56 | DI.DEXA.S_ITS ---
Bone Density Report Name: JAMIE SALGADO Age: 73 Sex: Female Ethnicity: White Date of : 1950 Indication: postmenopausal osteoporosis; monitoring treatment; Referring Provider: GEETHA SMITH Study: Bone densitometry was performed. Exam Date: June 22, 2023 Accession number: [id number] Bone Density: Region BMD T-score Z-score Classification AP Spine(L1-L4) 0.761 -2.6 -0.3 Osteoporosis Femoral Neck (Left) 0.594 -2.3 -0.3 Osteopenia Total Hip (Left) 0.689 -2.1 -0.3 Osteopenia Femoral Neck (Right) 0.607 -2.2 -0.2 Osteopenia Total Hip (Right) 0.707 -1.9 -0.2 Osteopenia Total Hip Mean 0.698 -2.0 -0.3 Osteopenia World Health Organization criteria for BMD impression classify patients as: Normal (T-score at or above -1.0), Osteopenia (T-score between -1.0 and -2.5), or Osteoporosis (T-score at or below -2.5). 10-year Fracture Risk: FRAX not reported because: Some T-score for Spine Total or Hip Total or Femoral Neck at or below -2.5 Treated for osteoporosis Previous Exams: -- Region Exam Age BMD T-score BMD Change BMD Change Date g/cm2 vs Baseline vs Previous -- AP Spine (L1-L4) 06/22/2023 73 0.761 -2.6 -0.003 (-0.4%)# -0.003 (-0.4%)# 10/01/2018 68 0.764 -2.6 Total Hip(Left) 06/22/2023 73 0.689 -2.1 0.052 (8.2%)# 0.052 (8.2%)# 10/01/2018 68 0.637 -2.5 Total Hip(Right) 06/22/2023 73 0.707 -1.9 0.036 (5.3%)# 0.036 (5.3%)# 10/01/2018 68 0.672 -2.2 -- *Denotes significance at 95% confidence level, LSC for AP Spine = 0.022 g/cm2, LSC for Total Hip = 0.027 g/cm2 # Denotes dissimilar scan types or analysis methods Impression: The patient has osteoporosis, based on the Total Spine T-score. No significant bone loss was observed. Discussion: PATIENT UNDER TREATMENT WITH NO SIGNIFICANT BMD LOSS SINCE LAST EXAM. In an untreated patient, BMD typically declines with age. A lack of decline or gain is usually a sign that treatment is efficacious and fracture risk is reduced. It is important to ask patients whether they are taking their medications and to encourage continued and appropriate compliance with their osteoporosis therapies to reduce fracture risk. It is also important to review their risk factors and encourage appropriate calcium and vitamin D intakes, exercise, fall prevention and other lifestyle measures. Follow-Up: Consider a repeat BMD and Vertebral Fracture Assessment (VFA) exam in 2 years or sooner if medically necessary, to reassess this patient's status. Reported by: DEAN GAXIOLA M.D. on 06/22/2023 12:09:00 PM.
== END ==
LOC: RAD 11:42
PROVIDERS: PCP Internal Medicine; Referring Provider Internal Medicine; Visit Provider Internal Medicine
DX: M81.0 Age-related osteoporosis without current pathological fracture (principal); Z78.0 Asymptomatic menopausal state; Z79.83 Long term (current) use of bisphosphonates; Z92.23 Personal history of estrogen therapy; Z79.899 Other long term (current) drug therapy
CPT/HCPCS: 77080

== ENCOUNTER 2023-06-27 08:46 | Day surgery (SDC) | payer MEDICARE, SELFPAY ==
[2019-09-29 12:20] VITALS: BMI 22.9
--- NOTE | 2023-06-27 | PATH_ITS ---
[facility] Accession Number: [id number] No. of containers..01 Tissue . 01 Material submitted: . gastrointestinal site - GASTRIC BIOPSY . 01 Diagnosis: STOMACH, BIOPSY: Gastric antral and body mucosa with no diagnostic abnormality. No evidence of Helicobacter organisms on H/E stain. Negative for intestinal metaplasia. Negative for dysplasia or malignancy. MRV 06/29/2023 1529 Local . 01 Electronically signed: . Ji Santana MD, PhD, Pathologist NPI- [id number] . 01 Gross description: . GASTRIC BIOPSY: Received in formalin are 2 fragment(s) of davila, soft tissue measuring 0.1 x 0.1 x 0.1 cm to 0.3 x 0.3 x 0.3 cm submitted entirely in 1 cassette(s) /REJI 06/28/2023 1912 Local . 01 Pathologist provided ICD-10: K21.9, R10.13 . 01 CPT . 557707 Specimen Comment: A courtesy copy of this report has been sent to [phone] Performed at: 01 [facility] [address] [place] [address], [place], [place] [id number] MD Uche Arthur MD Phone: [phone]
[2023-06-27 09:03] VITALS: BP 157/83; PULSE 63; RESP 16; TEMP 36.4; O2SAT 96
--- NOTE | 2023-06-27 09:20 | PM.HP.1 ---
History of Present Illness History of Present Illness Date Patient Seen: 06/27/23 Chief complaint: EGD Narrative: GE reflux [facility] Medical History Cervical spine fracture Chronic pain Fibroids Former smoker Hemorrhoids HLD (hyperlipidemia) HTN (hypertension) Mitral valve prolapse Osteoporosis PAF (paroxysmal atrial fibrillation) Primary insomnia Right shoulder pain (06/2019) Tachycardia Surgical History History of carpal tunnel release of both wrists S/P cervical spinal fusion (2000) S/P cervical spinal fusion (2010) Social History household members: spouse Smoking Status: Former smoker alcohol intake: current Meds Home Medications and Allergies Home Medications Medication Instructions Recorded Confirmed Type carisoprodol 350 mg tablet 1 tab PO TID PRN Pain, Moderate 10/30/17 10/20/19 History cetirizine 10 mg tablet (Zyrtec) 1 tab PO DAILY 10/30/17 10/20/19 History cholecalciferol (vitamin D3) 25 1,000 unit PO DAILY 10/30/17 10/20/19 History mcg (1,000 unit) capsule (Vitamin D3) coenzyme Q10 100 mg capsule 100 mg PO DAILY 10/30/17 10/20/19 History (CoQ-10) fluticasone propionate 50 1 spray intranasal DAILY PRN 10/30/17 10/20/19 History mcg/actuation nasal Congestion spray,suspension gabapentin 300 mg capsule 1 cap PO TID 10/30/17 10/20/19 History ibuprofen 800 mg tablet 800 mg PO TID PRN Pain, Moderate 10/30/17 10/20/19 History losartan 25 mg tablet 25 mg PO DAILY 10/30/17 10/20/19 History omega 9-otx-qzh-fish oil 1,000 mg 1,000 mg PO DAILY 10/30/17 10/20/19 History (120 mg-180 mg) capsule (Fish Oil) zolpidem 10 mg tablet 10 mg PO BEDTIME 10/30/17 10/20/19 History amlodipine 5 mg tablet 5 mg PO DAILY 09/08/19 10/20/19 History estradiol 0.01% (0.1 mg/gram) 1 gram vaginal 3XW 09/08/19 10/20/19 History vaginal cream metoprolol succinate 100 mg 150 mg PO DAILY 02/12/20 02/12/20 History tablet,extended release 24 hr Allergies Allergy/AdvReac Type Severity Reaction Status Date / Time albuterol Allergy dry mouth Verified 06/27/23 09:11 Exam Vital Signs (past 8 hours): - 06/27/23 09:03 Temperature 97.6 F Pulse Rate 63 Respiratory Rate 16 Blood Pressure 157/83 H Pulse Oximetry 96 Oxygen Delivery Method Room Air Oxygen Delivery Method Room Air Narrative Exam Narrative: Oropharynx free of lesions Chest clear to auscultation percussion Cardiac exam reveals no S3 or murmur Assessment & Plan Assessment & Plan narrative: GE reflux rule out Flowers's esophagus. Risks, benefits, alternatives have been explained.
--- NOTE | 2023-06-27 09:21 | PM.OP.EGD ---
Operative Date/Time/Diagnoses Date of procedure: 06/27/23 Pre-op diagnosis: See indication and findings Procedure & Clinicians Study performed: EGD Indications: Reflux Surgeon: Neri Escalante Procedure Notes Procedure in detail: After informed consent was obtained the patient was placed in left lateral decubitus position. The video upper scope was placed into the oropharynx and with the patient's help swallowed into the esophagus. The esophagus stomach and duodenum were carefully examined. On withdrawal, retroflexed view the GE junction was performed. This scope was removed. The patient tolerated procedure well. Blood loss none Complications none Sedation mac Findings 1. Cervical inlet patch without ulceration at 18 cm from the incisors 2. Normal remainder of the esophagus with the exception of minimal irregularity at the squamocolumnar junction which was well below the top of the GE folds 3. Scattered gastric erythema particularly in the antrum biopsies taken to rule out Helicobacter 4. Normal duodenal bulb and sweep Will await biopsies,
[2023-06-27] MEDS: LACTATED RINGERS 1,000 ML 42 ML IV (09:22)
[2023-06-27 10:15] VITALS: BP 103/61; PULSE 47; RESP 14; TEMP 36.4; O2SAT 96
[2023-06-27 10:21] VITALS: BP 116/62; PULSE 66; RESP 16; O2SAT 95
[2023-06-27 10:26] VITALS: BP 107/67; PULSE 59; RESP 19; TEMP 36.4; O2SAT 96
== END 2023-06-27 10:47 | disposition home or self-care (01) ==
PROVIDERS: PCP Internal Medicine; Referring Provider Internal Medicine Gastroenterology; Visit Provider Internal Medicine Gastroenterology
PROC: 0DJ08ZZ Inspection of Upper Intestinal Tract, Via Natural or Artificial Opening Endoscopic (ICD-10-PCS; CPT 43235; principal; 2023-06-27 09:30)
DX: K21.9 Gastro-esophageal reflux disease without esophagitis (principal)
CPT/HCPCS: 43239; J2405; J2704

== ENCOUNTER 2024-03-17 06:38 | Day surgery (SDC) | payer MEDICARE, SELFPAY ==
[2019-09-29 12:20] VITALS: BMI 22.9
[2024-03-14 12:23] VITALS: BMI 23.6
[2024-03-17] VITALS (17 sets, daily range): BP systolic 111–148; BP diastolic 63–82; PULSE 62–77; RESP 11–21; TEMP 36.2–36.9; O2SAT 93–100; BMI 23.3
--- NOTE | 2024-03-17 | PATH_ITS ---
[facility] Accession Number: [id number] No. of containers..01 Tissue . 01 Material submitted: . uterus - UTERUS, CERVIX, BILATERAL TUBES AND OVARIES . 01 Diagnosis: UTERUS, CERVIX, BILATERAL TUBES AND OVARIES, LAPAROSCOPIC-ASSISTED VAGINAL HYSTERECTOMY AND BILATERAL SALPINGO-OOPHORECTOMY (65 GRAMS): Cervix with patchy parakeratosis and no significant atypia. Endocervix with prominent Nabothian gland cysts and no significant atypia. Basalis/inactive endometrium with focal cystic atrophy; negative for endometrioid intraepithelial neoplasia or malignancy. Myometrium with no significant histomorphologic abnormality. Uterine serosa with no significant histomorphologic abnormality. Left fallopian tube with no significant atypia. Left ovary with a hyalinized / partially calcified fibroma (33 x 16 x 10 mm). Right fallopian tube with no significant atypia. Right ovary with a benign fibroma (10 mm in greatest dimension). [facility] 03/25/2024 0807 Local . 01 Comment: This case was also reviewed by Dr. Yahaira Shabazz, who agrees with the interpretation. . 01 Electronically signed: . Nissa Carranza MD, Pathologist NPI- [id number] . 01 Gross description: . Received in formalin with two patient identifiers and uterus, cervix, tubes, and ovaries, is an intact uterus (65 grams, 7.5 cm superior to inferior, 5.8 cm medial to lateral, 3.1 cm anterior to posterior ) with attached cervix (4.1 x 2.7 cm), attached left fallopian tube (6.1 cm in length by 0.4 cm in diameter), attached left ovary (5 grams, 3.4 x 1.9 x 1.6 cm), right fallopian tube (5.4 cm in length by 0.7 cm in diameter), and right ovary (3 grams, 2.8 x 1.5 x 1.3 cm). . The ectocervix is davila and wrinkled with a patulous os, 0.7 cm in diameter. The entire paracervical margin is inked blue while the posterior paracervical margin is inked black. The serosa is davila and smooth with no hemorrhage or adhesion identified. . The endocervical canal is davila and irregular with multiple clear gelatinous-filled cysts up to 0.6 cm in greatest dimension. The canal measures 3.1 cm in length. The endometrial cavity is 2.4 cm from cornu to cornu, and 3.4 cm in length with pink-davila velvety endometrium that averages 0.1 cm thick. The myometrium is davila and trabecular measuring up to 1.7 cm in maximum thickness with no lesions identified. . Both tubes have violaceous, slightly roughened serosa with no cysts identified. The lumina are stellate and unremarkable. . The left ovary has a pale davila smooth lesion (3.3 x 1.6 x 1.0 cm) attached to the external surface of the ovary. Inked blue and sectioned to reveal the lesion to have a white, whorled cut surface with a central yellow, partially calcified area. The remaining ovary is unremarkable. The right ovary has a davila, cerebriform, unremarkable external surface, an sectioning reveals an unremarkable physiologic cut surface with no lesions identified. Press Tool Maker sections are submitted as follows: . A1: Anterior cervix. A2: Posterior cervix. A3: Anterior full thickness section. A4: Posterior full thickness section. A5: Left tube to include one-half of bisected fimbriae and cross sections. A6-A7: Left ovary with white whorled nodule. A8: Right fallopian tube to include one-half of bisected fimbriae and cross sections. A9: Right ovary. . Block A7 briefly decalcified. ([id number]) /MRV 03/18/2024 [facility]6 Local . 01 Microscopic: . An immunohistochemistry panel is performed to further evaluate the cells of interest. The control stains show appropriate reactivity. . RESULTS: Block A9 WT1: Positive. Calretinin: Positive. Inhibin: Weakly positive. Melan-A: Negative. S100: Negative. CD10: Negative. CD34: Negative. Reticulin: Pericellular (not nested). CHELSEA: Negative. . The immunohistochemistry studies demonstrate positivity for inhibin, calretinen, and WT-1 with a pericellular reticulin pattern. These findings are most consistent with a benign fibroma. . * This test was developed and the performance characteristics were validated by [facility]. It has not been cleared or approved by the U.S. Food and Drug Administration. . 01 Pathologist provided ICD-10: Z96.0, N81.10, N81.4 . 01 CPT . 890507, L49014, M46835 Specimen Comment: A courtesy copy of this report has been sent to [phone] Performed at: [address] [address], [place], [place] [id number] MD Uche Arthur MD Phone: [phone]
[2024-03-17] MEDS: ACETAMINOPHEN 325 MG TABLET 975 MG PO (07:17)
[2024-03-17] MEDS: SCOPOLAMINE 1 PATCH TOP (07:41)
--- NOTE | 2024-03-17 07:54 | PM.PREOP ---
Pre-operative Note Interval Note History & Physical reviewed/Exam performed by Physician: Yes Changes to H&P: No H&P completed within 30 days and has changed as indicated here:: 02/28/24
[2024-03-17] MEDS: CEFAZOLIN 2 GM/100 ML PREMIX 100 ML IV (08:03)
--- NOTE | 2024-03-17 08:21 | SUR.OPER ---
Lithotomy on padded OR bed. Cadott Pad Positioner under torso. Head on pillow, arms padded and tucked at sides. Legs secured in padded yellow fins stirrups.
[2024-03-17] MEDS: BUPIVACAINE 0.25% (PF) 30 ML, EPINEPHrine 0.15 MG INJ ×2 (08:32→08:59)
[2024-03-17] MEDS: LACTATED RINGERS 1,000 ML 125 ML IV (09:43)
--- NOTE | 2024-03-17 10:38 | P.OP_ITS ---
Operative Date/Time/Diagnoses Date of procedure: 03/17/24 Time of procedure: 10:38 Pre-op diagnosis: Uterine prolapse Symptomatic cystocele Post-op diagnosis: same Procedure & Clinicians Procedure: Procedures Operation Date: 03/17/24 07:45 Actual Procedure Side Surgeon p Laparoscopic Assisted Vaginal Hysterectomy, Not Applicable Carolyne Rodriguez MD s repair cystocele, bilateral salpingo-oophorectomy Bilateral Carolyne Rodriguez MD Indications: 73-year-old 4 para 4 with symptomatic uterine prolapse and cystocele. Failed pessary Surgeon: Carolyne Rodriguez Furniture Painter: Ariela Guzmán Anesthesia Type: General and Local Operative Notes Findings: 6 week size prolapsed uterus Left adnexal adhesions Friable tissue around the uterosacral ligaments Normal right ovary and tube Normal left ovary and tube except for adhesions Closure Type: primary Specimen(s): left tube & ovary, right tube & ovary and uterus Applied: catheter (To continuous drainage) Estimated blood loss (mL): 100 Blood products transfused: none Procedure in detail: The patient was taken to the operating room where she was placed in the dorsal supine position. After adequate general endotracheal anesthesia was achieved, she was placed in the dorsal lithotomy position, and prepped and draped in the usual sterile fashion. A bivalve speculum was placed into the vagina, and a single-tooth tenaculum was placed on the anterior lip of the cervix. The cervical os was sequentially dilated until the ZUMI uterine manipulator could pass easily into the endometrial cavity. The single-tooth tenaculum was removed from the anterior lip of the cervix, and the bivalve speculum was removed from the vagina. Attention was then turned to the abdomen where 6 mL of half percent Marcaine with epinephrine were injected in the umbilical fold. A 5 mm incision was made. The varies needle was placed into the peritoneal cavity, and its placement confirmed by aspiration and drop test. The abdominal cavity was insufflated with 4 L of CO2. The varies needle was removed, and a 5 mm trocar was placed without difficulty. Initial inspection of the pelvis revealed the findings noted above. 2 other incisions were made midway between the pubic symphysis and umbilicus 4 cm lateral to the midline. These were 5 mm incisions. 25 mm trochars were placed under direct visualization. The right tube and ovary were grasped with an atraumatic grasper. The infundibulopelvic ligament on the right side was cauterized and cut with plasma kinetic. The round ligament and broad ligament were cauterized and cut. This was continued to the level of the uterine arteries. This was repeated on the patient's left side. The instruments were removed from the abdomen. Attention was then turned to the vagina where the ZUMI uterine manipulator was removed from the uterus. The cervix was grasped with a 4 tooth tenaculum. 10 mL of quarter percent Marcaine with epinephrine were injected circumferentially around the cervix. The cervix was circumscribed. The bladder and rectum were dissected off the lower uterine segment and cervix with an open moistened Ray-Gareth. The peritoneum was entered sharply with the Metzenbaum scissors anteriorly and a [place] placed. The peritoneum was entered posteriorly with the Metzenbaum scissors and the long weighted speculum was placed into the posterior cul-de-sac. The uterosacral c ardinal ligament complexes were clamped, transected, and suture ligated with 0 Vicryl. These were attached to hemostat. The uterine arteries were clamped, transected, and suture ligated with 0 Vicryl. The uterus was handed off for specimen with the tubes and ovaries. The peritoneum was closed with a pursestring suture with 2-0 Vicryl. The vaginal cuff was closed with 0 Vicryl with a series of simple interrupted sutures. The tagged sutures were cut. 2 Allis clamps were placed at the apex of the cystocele. 6 mL of half percent Marcaine with epinephrine were injected and an incision was made with a #10 blade between the 2 Allis clamps. Wide Allis clamps were placed on the midline of the cystocele approximately 7. The mucosa was undermined using the Metzenbaum scissors and the mucosa incised in the midline moving the wide Allis clamps to the edges of the mucosa. The mucosa was dissected off the underlying fascia using an open moistened Ray-Gareth and a #10 blade. The fascia was re approximated with 0 Vicryl with a series of horizontal mattress sutures. The excess vaginal mucosa was excised. The mucosa was closed using simple interrupted sutures with 2-0 Vicryl including the underlying fascia to close the space. The weighted speculum was removed from the vagina. Hemostasis was achieved. A Betadine moistened vaginal pack was placed into the vagina. The urine was clear. Sponge, lap, and instrument counts were correct x-2. The patient tolerated the procedure well, was taken to PACU in stable condition. Complications: none Post-operative Condition: stable Disposition: PACU Plan for aftercare: To acute care after recovery
[2024-03-17] MEDS: ONDANSETRON 4 MG/2 ML INJ IV (10:47)
[2024-03-17] MEDS: hydrOXYzine 50 MG/ML INJ 25 MG IM (10:47)
[2024-03-17] MEDS: OXYCODONE IR 5 MG TABLET PO ×2 (10:47→15:15)
[2024-03-17] MEDS: ACETAMINOPHEN 325 MG TABLET 650 MG PO ×2 (12:08→18:01)
[2024-03-17] MEDS: IBUPROFEN 400 MG TABLET PO ×2 (15:16→21:23)
[2024-03-17] MEDS: LACTATED RINGERS 1,000 ML 50 ML IV (17:51)
[2024-03-17] MEDS: METOPROLOL ER 50 MG TABLET PO (21:22)
[2024-03-17] MEDS: GABAPENTIN 300 MG CAPSULE PO (21:22)
[2024-03-17] MEDS: DOCUSATE 100 MG CAPSULE 200 MG PO (21:22)
[2024-03-17] MEDS: PANTOPRAZOLE DR 40 MG TABLET PO (21:22)
[2024-03-17] MEDS: AMLODIPINE 5 MG TABLET PO (21:22)
[2024-03-17] MEDS: ZOLPIDEM 5 MG TABLET PO ×2 (21:27→22:26)
[2024-03-17] MEDS: LOSARTAN 25 MG TABLET 50 MG PO (22:05)
[2024-03-18] MEDS: IBUPROFEN 400 MG TABLET PO ×2 (03:10→10:25)
[2024-03-18] MEDS: ACETAMINOPHEN 325 MG TABLET 650 MG PO ×2 (03:58→10:15)
[2024-03-18 04:00] VITALS: BP 159/79; PULSE 78; RESP 17; TEMP 36.6; O2SAT 94
--- NOTE | 2024-03-18 05:15 | PC.NURSE ---
NOC Shift Not- Patient has complained several ti8mes during the night about the ruiz cath. Patient reports feeling of urgency and need to void even with the ruiz in place and draining well. Patient complained to pain and burning. [id number] requested to take ruiz out. Ruiz and vaginal packing removed at 0430 per patient request. Patient immediatly went to bathroom stating mfeeling of urgency, pressure, and burning. unable to measures or send that urine, hat not placed i9n bowel for collection yet. Next urine sent to lab for a dip.
[2024-03-18 05:44] LABS: Appearance Urine UA CLEAR; Bilirubin Urine UA NEGATIVE (NEGATIVE); Color Urine UA RED; Glucose Urine UA NEGATIVE (Negative); Ketones Urine UA NEGATIVE (NEGATIVE); Leukocyte Esterase Urine UA NEGATIVE (NEGATIVE); Nitrite Urine UA NEGATIVE (Negative); Occult Blood Urine UA 3+ (Negative); Protein Urine UA TRACE (Negative); Urobilinogen Urine UA 0.2 E.U./dL (0.2)
[2024-03-18 05:46] LABS: pH Urine UA 7.5 (4.5-8.0)
[2024-03-18 05:50] LABS: Bacteria Urine None Seen; Culture Indicated Urine Cult Not Indicated; RBC Urine 30-100/HPF (0-5/HPF); Squamous Epithelial Cell Urine None Seen (0-5/HPF); Urine Volume 10mL (spun); WBC Urine 0-1/HPF (0-5/HPF)
[2024-03-18] MEDS: PANTOPRAZOLE DR 40 MG TABLET PO (06:16)
[2024-03-18 06:43] LABS: Add Manual Diff / Slide Review NO; Basophils Absolute Auto 100 /uL (0-100); Basophils Percent Auto 0.7 % (0-2); Eosinophils Absolute Auto 0 /uL (0-450); Eosinophils Percent Auto 0.2 % (2-4); Hematocrit 33.6 % (36-46); Hemoglobin 11.2 g/dL (12.0-16.0); Lymphocytes Absolute Auto 1100 /uL (1100-4500); Lymphocytes Percent Auto 12.2 % (25-40); Mean Corpuscular HGB Conc 33.3 % (30-36); Mean Corpuscular Hemoglobin 30.7 PG (26-34); Mean Corpuscular Volume 92.1 fL (80-100); Monocytes Absolute Auto 900 /uL (0-900); Monocytes Percent Auto 9.9 % (3-14); Neutrophils Absolute Auto 6900 /uL (1500-7000); Platelet Count 252 X10^3/uL (150-400); Red Blood Cell Count 3.64 X10^6/uL (4.0-5.2); Red Cell Distribution Width 13.6 % (11.6-14.8)
[2024-03-18 06:55] LABS: BUN Creatinine Ratio 21.5 (6-22); Blood Urea Nitrogen 17 mg/dL (7-17); Calcium 9.2 mg/dL (8.4-10.2); Carbon Dioxide 30 mmol/L (22-32); Chloride 103 mmol/L (98-107); Estimated Glomerular Filt Rate > 60 mL/min (>60); Glucose 102 mg/dL (80-110); HEMOLYSIS < 15 (0-50); Potassium 3.9 mmol/L (3.4-5.1); Sodium 138 mmol/L (137-145)
[2024-03-18 08:00] VITALS: BP 147/72; PULSE 947; RESP 12; TEMP 37.3; O2SAT 94
[2024-03-18 08:05] VITALS: BP 147/77; PULSE 70
[2024-03-18] MEDS: GABAPENTIN 300 MG CAPSULE PO (08:05)
[2024-03-18] MEDS: LOSARTAN 25 MG TABLET 50 MG PO (08:05)
[2024-03-18] MEDS: AMLODIPINE 5 MG TABLET PO (08:05)
[2024-03-18] MEDS: LORATADINE 10 MG TABLET PO (08:05)
[2024-03-18] MEDS: DOCUSATE 100 MG CAPSULE 200 MG PO (08:05)
[2024-03-18] MEDS: METOPROLOL ER 50 MG TABLET 100 MG PO (08:06)
--- NOTE | 2024-03-18 11:06 | PC.NURSE ---
Pt is A&OX4, VSS, afebrile on RA. She tolerates breakfast well and denies, n/v or dizziness with getting up to BR.Lamar moreno RN removed packing and Kunz this a.m. MD at beside evaluating patient. PVR <10cc this a.m. after voiding 200 cc. MD notified and patient is cleared for discharge home with her . She verbalizes understanding and acknowledgement of meds, activity, site care, s/sx of infection as well as follow post-op appointment. She is escorted via w/ch with all of her belongings to private vehicle with at 1030 a.m. for discharge home today.
--- NOTE | 2024-03-18 14:51 | CM.DANOTE ---
Initial DCP Assessment Visit Note Reviewed EMR and team rounds for pt's medical status and updates. Met with pt at bedside to introduce self and role, pt was found to be alert, oriented, dressed, and preparing for home d/c. Pt resides independently in her own home with her spouse here in [place]. Her spouse transported her home earlier this morning once she was medically cleared for d/c. Payor: Vanessa June Attending: Dr. Rodriguez Pt is a 73 year-old F post-op day 1 from a prolapsed uterus surgery. Limited information was available in the EMR, pt had been seen and discussed plan for this elective surgery wit Dr. Rodriguez. No needs were identified for home d/c needs or assistance. No further needs indicated at this time for CM. Discharge Planning/Care Management Advanced directive, confirm from FAMILY Start: 03/17/24 12:04 Freq: Q24H Status: Discharge Protocol: Document 03/18/24 01:27 AGW (Rec: 03/18/24 01:27 AGW [id number]) Advance Directive, confirm on record Time 21:00 Person contacted patient Copy received Yes Advanced directive available on record Yes CM Discharge Assessment Start: 03/18/24 14:50 Freq: Status: Active Protocol: Document 03/18/24 14:50 DPL (Rec: 03/18/24 14:51 DPL [id number]) Discharge Planning Assessment Assigned Industrial Security Analyst NOEMI Easton Advance Directives? Yes Advance Directives on File No History Provided By Patient,Medical Record Has Patient been admitted in last 30 No days? Prior Living Arrangements House Household Members spouse Type of transporation used prior to Drives own vehicle admit Independent with ADL's Yes Is patient alert and oriented? Yes Comment N/A Caregiver for Another No Comment N/A Comment OP f/u with Dr. Rodriguez. Barriers to Discharge No Discharge Plan Home Transportation Arrangement Family Referrals Initiated None needed Whiteboard Updated in Patient Room with Yes name and ext. # of Industrial Security Analyst Review Status In Process Please Provide Date Initial DC 03/18/24 Assessment Was Performed Pre-Anesthesia Assessment Start: 03/14/24 12:23 Freq: Status: Complete Protocol: Document 03/14/24 12:23 CAB (Rec: 03/14/24 12:30 CAB [id number]) Pre-Anesthesia Assessment PAC Comment Chart review Patient Information Reviewed Via Chart Review Primary Care Provider Dolores Dash Seen Specialist in Last 12 Months Yes Specialist Seen Maintenance Superintendent Primary Language Bahraini Preferred Language Bahraini Code Enforcement Inspector Required No Height 170.18 cm Weight 68.492 kg Body Mass Index (BMI) 23.6 Hx Anesthesia Reactions Yes: PONV Hx Family Anesthesia Reaction No Hx Malignant Hyperthermia No Hx Blood Transfusions No Hx Blood Transfusion Reaction No Anesthesia Review Requested No Railroad Accountant No alcohol intake current Smoking Status Former smoker how long ago did patient quit smoking Quit 1985 Mental Status Oriented to own ability Is patient on oxygen? No Hx Sleep Apnea No Currently Taking a Beta Alexander Yes: Metoprolol Anti-Coagulant Therapy No Hx Pacemaker/ICD No Pacemaker Rep Required? No Urinary Catheter Present No Hx Urinary Self Catheterization No Diabetes No Patient No Lactating No Presence of External or Internal Medical Yes: Cervical fusion Devices Marital Status Lives With spouse Patient Discharge Plan Description Return Home Advance Directives? Yes
--- NOTE | 2024-03-24 12:53 | PC.NURSE ---
late entry 03/17/24 pt medicated with 5mg PO oxycodone at 2113. Scan of medication did not save to record.
== END 2024-03-18 10:30 | disposition home or self-care (01) ==
LOC: OR 06:40 → AC 06:40
PROVIDERS: PCP Internal Medicine; Referring Provider Obstetrics & Gynecology; Visit Provider Obstetrics & Gynecology
PROC: 0UT9FZZ Resection of Uterus, Via Natural or Artificial Opening With Percutaneous Endoscopic Assistance (ICD-10-PCS; CPT 58552; principal; 2024-03-17 07:45)
PROC: (CPT 58552; 2024-03-17 07:45)
DX: N81.89 Other female genital prolapse (principal); N81.10 Cystocele, unspecified; Z96.0 Presence of urogenital implants; N73.6 Female pelvic peritoneal adhesions (postinfective)
CPT/HCPCS: 58552; 57240; 36415; 80048; 81001; 85025; J0171; J0330; J0690; J1100; J1171; J1885; J2405; J2704; J3010; J3410; J3490

== ENCOUNTER → 2024-05-17 12:04 | Outpatient (CLI) | payer MEDICARE, SELFPAY ==
[2024-03-17 06:42] VITALS: BMI 23.3
--- NOTE | 2024-05-17 | DI.MG.S_ITS ---
BILATERAL DIGITAL SCREENING MAMMOGRAM 3D/2D WITH CAD: 05/17/2024 CLINICAL: Routine screening. Comparison is made to exams dated: 10/09/2018 mammogram, 04/11/2022 mammogram - [facility], and 03/21/2016 mammogram - [facility]. The breasts are almost entirely fatty (category a/<25% glandular tissue). Current study was also evaluated with a Computer Aided Detection (CAD) system. No significant masses, calcifications, or other findings are seen in either breast. There has been no significant interval change. IMPRESSION: NEGATIVE There is no mammographic evidence of malignancy. A 1 year screening mammogram is recommended. Based on the Tyrer Cuzick model (a risk assessment model) the patient's lifetime risk is 2.5% and her 10 year risk is 2.2%. According to the ACR, ACS, and NCCN guidelines, an annual breast MRI exam along with mammogram is recommended if the patient's lifetime risk is 20% or greater. This exam was interpreted at Station ID: [id number]. NOTE: For mammograms, a report in lay terms will be sent to the patient. Approximately 15% of breast malignancies will not be visualized mammographically. In the management of a palpable breast mass, a negative mammogram must not discourage biopsy of a clinically suspicious lesion. Electronically Signed By: Guru singer/adi:05/19/2024 07:33:13 letter sent: Normal Exam ACR BI-RADS Category 1: Negative
== END ==
PROVIDERS: PCP Internal Medicine; Referring Provider Internal Medicine; Visit Provider Internal Medicine
DX: Z12.31 Encounter for screening mammogram for malignant neoplasm of breast (principal); R92.313 Mammographic fatty tissue density, bilateral breasts
CPT/HCPCS: 77063; 77067

== ENCOUNTER → 2024-11-03 08:54 | Outpatient (CLI) | payer MEDICARE, SELFPAY ==
[2024-03-17 06:42] VITALS: BMI 23.3
[2024-11-03 11:02] LABS: Appearance Urine UA CLEAR; Bilirubin Urine UA NEGATIVE (NEGATIVE); Color Urine UA YELLOW; Glucose Urine UA NEGATIVE (Negative); Ketones Urine UA NEGATIVE (NEGATIVE); Leukocyte Esterase Urine UA NEGATIVE (NEGATIVE); Nitrite Urine UA NEGATIVE (Negative); Occult Blood Urine UA NEGATIVE (Negative); Protein Urine UA NEGATIVE (Negative); Specific Gravity Urine UA 1.010 (1.000-1.035); Urobilinogen Urine UA 0.2 E.U./dL (0.2); pH Urine UA 6.0 (4.5-8.0)
[2024-11-03 11:08] LABS: Culture Indicated Urine Cult Not Indicated
== END ==
PROVIDERS: PCP Internal Medicine; Visit Provider Obstetrics & Gynecology Gynecology
DX: N81.9 Female genital prolapse, unspecified (principal); R35.0 Frequency of micturition; Z90.710 Acquired absence of both cervix and uterus
CPT/HCPCS: 81001

== ENCOUNTER 2025-01-30 06:25 | Day surgery (SDC) | payer MEDICARE, SELFPAY ==
[2024-03-17 06:42] VITALS: BMI 23.3
--- NOTE | 2024-12-29 15:19 | PM.GYNHP.1 ---
History of Present Illness History of Present Illness Narrative: Ceci Benavidez is a 74 year old female Date of procedure:?? Jan 15, 2025 Preoperative diagnosis:? Cystocele, vaginal vault prolapse Stress incontinence Planned Procedure:?? Robotic laparoscopic sacral colpopexy Mid urethral sling Cystoscopy Postop Meds Tylenol 1000 mg, ?3 times a day? celcoxib 200 mg a day Oycodone 5 mg,? take 1 pill every 4-6 hr as needed, # 20? Colace,? 1 pill BID, for constipation also takes gabapentin 300 mg bid, can increase up to 600 mg bid zofran 4-8 mg a d, #30, RF x 1 scopolamine patch also CC: Recurrent vaginal prolapse HPI:?? 74-year-old female who presents for evaluation of above complaint.?? She reports onset of symptoms 1 year ago.?? She considers this a? Moderate? problem. She has recurrent vaginal prolapse. She underwent her 1st surgery in [address] Benz, sacrospinous ligament uterine suspension with A&P repair. This worked for her until 2023. She then developed recurrent uterine prolapse and cystocele. Underwent surgery by Dr. Rodriguez in March 2024, NASEEM, BSO, anterior repair. She was seen 6 months later in September 2024 with vaginal vault prolapse. Referred for consultation She has a vaginal bulge that she feels but does not see. She has prolapse symptoms of heaviness and pressure, strains for bowel movements feels like she does not empty her bladder completely, and occasionally has to splint for bowel movements. She is considering surgery for the prolapse. She has been using a ring pessary but does not really like using it. She is not using it today. She also has stress incontinence that varies from twice a day to several times a day. She has allergies and a severe cough when that occurs, and she leaks several times a day when her allergies are bothering her. See triggers below. She only occasionally has any urgency leakage. She uses 1 mini pad per day. She has tried Kegel's. The ring pessary for her prolapse did not seem to impact her incontinence. She has nocturia, waking up 4 times at night to void, with moderate urgency, daytime she does better, only voids every 2-3 hours. Has a bowel movement daily but needs to use stool softeners and senna prior hyst -??? yes -x4 c-sec -0 Pelvic Floor Review of Systems: (HPI) Stress Urinary Incontinence symptoms (PRAVEEN): Twice a day sometimes many times a day Triggers include:??? [cough, sneeze, laugh, exercise, ? Urge Incontinence symptoms (Urge UI): Occasional Triggers include: Full bladder with urge ? Pads: She wears 1 mini pad a day Overactive Bladder symptoms (OAB):? ? Frequency:?? Every 2-3 hours Nocturia:?? X4 Urgency:?? Moderate Prior incontinence treatment includes:? Medical:? No Surgical:? No? Kegels:?? Yes Physical therapy:?No? Pessary:?She use this for the prolapse. Reports it did not change her incontinence. Diet / Fluids: Fluid restriction:? No Excessive fluids:?No Pain symptoms:? Painful bladder:???No Dysuria:??? No Dyspareunia:? No Dysmenorrhea:? No Urinary Risk Factors UTI?s, recurrent:? No Hematuria:? No Kidney Stones:?No? Tobacco use:? No Pelvic Organ Prolapse (POP) symptoms:?? Bulge:?Yes Pressure and /or? Heaviness:?Yes Splint for defecation or voiding:???Yes Voiding dysfunction: Abnormal stream:? No Strain to void:? No Incomplete emptying: Yes Voiding difficulty:? No Retention:??? No Bowel Function: Constipation:?Yes Strain to defecate:?Yes Fiber:?Yes Laxatives:?Yes Fecal Incontinence:? Liquid stool:? No Solid stool:?No?? Sexual function Sexually active: Yes Incontinence with sex:? No ? General Review of Systems: Constitutional, CV, Endo, Musc-skel, Eyes, Cancer, Skin, Breast, GI, Heme/Lymph, Psych, Urinary, Neuro, [employer], Resp, Sexual:??? Pertinent positives listed above in HPI All others reviewed and negative. All reviewed on patient questionnaire.? . . PFSH Medical History Anesthesia complication Right shoulder pain (06/2019) Primary insomnia Former smoker Osteoporosis Cervical spine fracture PAF (paroxysmal atrial fibrillation) Tachycardia Mitral valve prolapse Chronic pain Fibroids Hemorrhoids HLD (hyperlipidemia) HTN (hypertension) Cystocele and rectocele with incomplete uterovaginal prolapse Surgical History History of esophagogastroduodenoscopy (EGD) (06/27/23) History of vaginal surgery (~09/2019) History of carpal tunnel release of both wrists S/P cervical spinal fusion (2010) S/P cervical spinal fusion (2000) Allergies oxybutynin - dry mouth Medications carisoprodol 350 mg tablet 1 tab PO TID PRN Pain, Moderate 10/30/17 [History Confirmed 11/03/24] cetirizine 10 mg tablet (Zyrtec) 1 tab PO DAILY 10/30/17 [History Confirmed 11/03/24] cholecalciferol (vitamin D3) 25 mcg (1,000 unit) capsule (Vitamin D3) 1,000 unit PO DAILY 10/30/17 [History Confirmed 11/03/24] coenzyme Q10 100 mg capsule (CoQ-10) 100 mg PO DAILY 10/30/17 [History Confirmed 11/03/24] fluticasone propionate 50 mcg/actuation nasal spray,suspension 1 spray intranasal DAILY PRN Congestion 10/30/17 [History Confirmed 11/03/24] gabapentin 300 mg capsule 1 cap PO BID 10/30/17 [History Confirmed 11/03/24] ibuprofen 800 mg tablet 800 mg PO TID PRN Pain, Moderate 10/30/17 [History Confirmed 11/03/24] losartan 25 mg tablet 50 mg PO DAILY 10/30/17 [History Confirmed 11/03/24] omega 9-gbw-cof-fish oil 1,000 mg (120 mg-180 mg) capsule (Fish Oil) 1,000 mg PO DAILY 10/30/17 [History Confirmed 11/03/24] zolpidem 10 mg tablet 10 mg PO BEDTIME 10/30/17 [History Confirmed 11/03/24] metoprolol succinate 100 mg tablet,extended release 24 hr 150 mg PO DAILY 02/12/20 [History Confirmed 11/03/24] amlodipine 5 mg tablet 5 mg PO BID 02/08/24 [History Confirmed 11/03/24] celecoxib 200 mg capsule 200 mg PO DAILY 03/17/24 [History Confirmed 11/03/24] omeprazole 40 mg capsule,delayed release 40 mg PO BID 03/17/24 [History Confirmed 11/03/24] rosuvastatin 40 mg tablet 80 mg PO DAILY 03/17/24 [History Confirmed 11/03/24] estradiol 0.05 mg/24 hr semiweekly transdermal patch 1 patch topical 2XW #24 ea 09/22/24 [Rx Confirmed 11/03/24] Social History household members: spouse Tobacco & Substance Use Smoking Status: Former smoker alcohol intake: current Exam Vitals Height 5 ft 7 in Weight 155 lb BMI 24.3 BP 110/60 Blood Pressure Location Lt brachial Position Sitting Pulse 63 Pulse Source Monitor Pulse Oximetry (%) 94 Oxygen Delivery Method room air General: healthy, alert, coherent, no acute distress, cooperative, nontoxic Pulmonary: normal breathing, no distress Abdomen: soft, no mass, non-distended, no hernia, non-tender Skin: Scars on Abd: Lap Vulva: Normal labia majora, labia minora, introitus, and clitoris, non-tender Urethra meatus: normal, no discharge Perineum: Normal, non-tender Urethra: No mass, non-tender Bladder: no mass, non-tender Vagina: No lesions, no discharge, mild atrophy, non-tender Prolapse stage II cystocele and vaginal vault Insertion of a large swab corrects all of her prolapse indicating sacral colpopexy we will correct the prolapse Levators: Non-tender, 4-5/ 5 kegel squeeze Hysterectomy Bimanual: no mass, no adnexal mass, non-tender Anus: No lesion, non-tender, no hemorrhoid Empty Cough Stress test: Positive, so she has stress incontinence PVR: 50 mL by catheter Urethral angle hypermobile: Yes POP-Q Exam: Aa: 0 Ba: 0 Ap: -2 Bp: -2 C: -5 D: Not applicable TVL: 9 GH: 2.5 PB: 3.5 Introitus size: X2 fingerbreadths Cystocele stage: Stage II Rectocele stage: Stage I Uterine/Vault Prolapse Stage: Stage II Assessment & Plan 1. Vaginal vault prolapse: 2. cystocele 3. stress incontinence Assessment and Plan ? Patient counseled regarding above conditions.? Educational materials given to patient. 1. Pelvic Organ Prolapse -stage II cystocele and vaginal vault prolapse, recurrent This diagnosis and its etiology was discussed with the patient.? Treatment options were discussed including: expectant management, pessary trial, and surgical intervention. We briefly discussed risks and benefits of surgery. All surgery for prolapse is not 100% successful and there is a chance of recurrence or failure. She has been using a pessary, does not not wish to use it longer she desires surgery my recommendation = robotic laparoscopic sacral colpopexy, mid urethral sling, cystoscopy see below for counseling 2. Stress Urinary Incontinence with urethral hypermobility:? This diagnosis was discussed with the patient. The etiology was explained. Treatment options were discussed including expectant management, pelvic floor exercises, pessary trial, and surgical intervention (mid-urethral sling, Manzano urethropexy, P-V sling, Lizbeth urethral plication, urethral bulking injection).? Risks and benefits of surgery were briefly outlined. We discussed that she is a candidate for a Midurethral Sling as treatment of her stress incontinence. Success rate of being dry from stress incontinence is about 80-85%; another 10-15% of patients are markedly improved but not cured;? 1-2% will fail, and 1-2% will need the sling cut because it is too tight.? The risk of temporary urinary retention requeiring temporary catheterization is about 15-20%; risk of urinary retention requiring sling release procedure is about 1-2%, as noted above.? We discussed the small 1-3% of mesh erosion as well as the small risk of de moses urgency.? This procedure is not designed to treat Urge Incontinence symptoms; however, 30-50% of patients with overactive bladder/ urgency urinary incontinence will have improvement in these symptoms, in 30% these symptoms will stay the same, and in 20-30% these symptoms will worsen. She desires a sling with the prolapse repair see below for counseling 3. OAB She has some overactive bladder symptoms in terms of urgency and nocturia and occasional urge incontinence, with out daytime frequency. We talked about treatment options for this. Handout was given. For now, we will just manage with observation. Medications declined. These symptoms may improve after surgery for the prolapse. Reassess postop Date of procedure:?? Jan 15, 2025 Preoperative diagnosis:? Cystocele, vaginal vault prolapse Stress incontinence Planned Procedure:?? Robotic laparoscopic sacral colpopexy Mid urethral sling Cystoscopy Postop Meds Tylenol 1000 mg, ?3 times a day? celcoxib 200 mg a day Oycodone 5 mg,? take 1 pill every 4-6 hr as needed, # 20? Colace,? 1 pill BID, for constipation also takes gabapentin 300 mg bid, can increase up to 600 mg bid zofran 4-8 mg a d, #30, RF x 1 scopolamine patch also Patient counseled extensively about the Risks, Benefits, and Alternatives to surgery.? She was offered the opportunity to ask any questions, and all questions were answered. ? Surgical Risks include: Bleeding, Hemorrhage, Transfusion, Infection (especially wound or bladder), Injury to adjacent organs (especially bladder, ureter, bowel, blood vessels, nerves), Postop or Chronic Pain, need for Reoperation, and Life-threatening event (especially M.I., CVA, PE, DVT). Procedure Risks include: Failure to Cure condition, Recurrence of condition months or years later, Urinary incontinence, Voiding dysfunction or Urinary Retention with prolonged catheter use, Poor wound healing, Erosions of any mesh or graft used, Dyspareunia, Vaginal scarring or narrowing, Need for additional surgery (immediate or delayed).? The expected cure and improvement and failure rates were discussed. Patient counseled to avoid the following for 6 weeks after surgery: (1) Impact sports (like running or jumping), walking and stairs OK (2) Lifting over 20# (3) Sexual intercourse No limits after 6 weeks. ? Good exercise tolerance, > 4 Mets. Her current medications were reviewed, and instructions given over which to use and which to discontinue before surgery.? Post-operative care instructions reviewed.? We discussed post-operative pain: Pain should be in the mild-moderate range, but can be moderate-severe for the first few days.?? Prescriptions will typically be given for (1) acetaminophen (Tylenol) and (2) non-steroidal anti-inflammatory drug (NSAID, like Motrin or Naprosyn), use both together, around the clock. Prescription will also be given for a (3) narcotic pain medication. Use the narcotic as needed, as a booster to the Tylenol and NSAID. You might need 0-4 narcotic pills a day typically. The narcotic will only be needed for a few days.?? Gradually use less of the narcotic, but continue the Tylenol and NSAID.? After a few days, the narcotic should no longer be needed, and only the Tylenol and NSAID will be needed.? Warm packs or cold packs can also be used for pain.??Do not drive for as long as you are using the narcotic pain medication? - this should only be a few days.?? Constipation is associated with use of narcotic pain medications, and can be improved with use of a stool softener, or fiber, or a mild laxative.? If you are sent home from the hospital with a Kunz Catheter in place:? please call the office on the day after surgery We will usually remove the catheter 2-4 days after surgery: a. You will perform an at home Kunz catheter removal -or- b. You will come in to the office for a voiding trial, (For some unusual surgeries, we might leave the catheter in for up to 2 weeks, and then remove it.) Instructions for at home Kunz catheter removal..... For at-home Kunz catheter removal, this can be done on postop day 2 or 3 or 4, depending on various factors. 1. At 6 or 7 a.m., have the patient cut the Kunz catheter with scissors, while standing in a shower or bath tub. a. Cut the catheter right in the middle of the tubing, about 6 inches from the body. b. The sterile water that is inside the Kunz balloon will leak all over the floor of the shower or bath tub. This is expected. c. The catheter will either fall out of the urethra, or just gently pull on it and it will come out. 2. Now, the bladder will gradually fill up over the next few hours. 3. Go ahead and empty the bladder when you feel an urge to void. Please note how strong the urine stream is. a. If the urine stream is normal or close to normal, then everything is good to go. b. If the urine stream is slow or you can not void, then return to the clinic in the afternoon. We will place another Kunz catheter. We will repeat the voiding trial in 3-4 days. All of her questions were answered Raymon Sharp MD UroGynecology & Pel[facility] Reconstructive [facility] Medical History (Updated 09/15/24 @ 09:05 by Carolyne Rodriguez MD) Anesthesia complication Right shoulder pain (06/2019) Primary insomnia Former smoker Osteoporosis Cervical spine fracture PAF (paroxysmal atrial fibrillation) Tachycardia Mitral valve prolapse Chronic pain Fibroids Hemorrhoids HLD (hyperlipidemia) HTN (hypertension) Cystocele and rectocele with incomplete uterovaginal prolapse Surgical History (Updated 04/30/24 @ 11:27 by Conchis Benz MD) History of esophagogastroduodenoscopy (EGD) (06/27/23) History of vaginal surgery (~09/2019) History of carpal tunnel release of both wrists S/P cervical spinal fusion (2010) S/P cervical spinal fusion (2000) Social History household members: spouse Smoking Status: Former smoker alcohol intake: current Meds Home Medications and Allergies Home Medications ?Medication ?Instructions ?Recorded ?Confirmed ?Type carisoprodol 350 mg tablet 1 tab PO TID PRN Pain, Moderate 10/30/17 11/03/24 History cetirizine 10 mg tablet (Zyrtec) 1 tab PO DAILY 10/30/17 11/03/24 History cholecalciferol (vitamin D3) 25 1,000 unit PO DAILY 10/30/17 11/03/24 History mcg (1,000 unit) capsule (Vitamin D3) coenzyme Q10 100 mg capsule 100 mg PO DAILY 10/30/17 11/03/24 History (CoQ-10) fluticasone propionate 50 1 spray intranasal DAILY PRN 10/30/17 11/03/24 History mcg/actuation nasal Congestion spray,suspension gabapentin 300 mg capsule 1 cap PO BID 10/30/17 11/03/24 History ibuprofen 800 mg tablet 800 mg PO TID PRN Pain, Moderate 10/30/17 11/03/24 History losartan 25 mg tablet 50 mg PO DAILY 10/30/17 11/03/24 History omega 6-sml-brt-fish oil 1,000 mg 1,000 mg PO DAILY 10/30/17 11/03/24 History (120 mg-180 mg) capsule (Fish Oil) zolpidem 10 mg tablet 10 mg PO BEDTIME 10/30/17 11/03/24 History metoprolol succinate 100 mg 150 mg PO DAILY 02/12/20 11/03/24 History tablet,extended release 24 hr amlodipine 5 mg tablet 5 mg PO BID 02/08/24 11/03/24 History celecoxib 200 mg capsule 200 mg PO DAILY 03/17/24 11/03/24 History omeprazole 40 mg capsule,delayed 40 mg PO BID 03/17/24 11/03/24 History release rosuvastatin 40 mg tablet 80 mg PO DAILY 03/17/24 11/03/24 History estradiol 0.05 mg/24 hr semiweekly 1 patch topical 2XW #24 ea 09/22/24 11/03/24 Rx transdermal patch ondansetron 4 mg disintegrating 4 - 8 mg (1 - 2 x 4 mg) PO Q8H #30 12/31/24 12/31/24 Rx tablet tabs oxycodone 5 mg tablet 5 mg PO Q8H PRN pain #20 tabs 12/31/24 12/31/24 Rx Allergies Allergy/AdvReac Type Severity Reaction Status Date / Time fentanyl AdvReac Severe Nausea Verified 12/31/24 09:41 oxybutynin AdvReac Severe dry mouth Verified 12/31/24 09:41 Assessment & Plan Assessment and plan (1) Vaginal vault prolapse: Status: Acute Time-Based Coding :: [TOTAL MINUTES] spent with patient and on the chart (including review of chart, obtaining history, exam, reviewing outside data, placing orders, documenting exam and treatment plan, and counseling patient) on [DATE].
[2025-01-07 14:36] VITALS: BMI 24.3
--- NOTE | 2025-01-29 15:29 | P.HPOB_ITS ---
History of Present Illness History of Present Illness Narrative: Ceci Benavidez is a 74 year old female Date of procedure:?? Jan 30, 2025 Preoperative diagnosis:? Cystocele, vaginal vault prolapse, stage 2 Stress incontinence Planned Procedure:?? Robotic laparoscopic sacral colpopexy Mid urethral sling Cystoscopy Postop Meds Tylenol 1000 mg, ?3 times a day? celcoxib 200 mg a day Oycodone 5 mg,? take 1 pill every 4-6 hr as needed, # 20? Colace,? 1 pill BID, for constipation also takes gabapentin 300 mg bid, can increase up to 600 mg bid zofran 4-8 mg a d, #30, RF x 1 scopolamine patch also CC: Recurrent vaginal prolapse HPI:?? 74-year-old female who presents for evaluation of above complaint.?? She reports onset of symptoms 1 year ago.?? She considers this a? Moderate? problem. She has recurrent vaginal prolapse. She underwent her 1st surgery in [address] Benz, sacrospinous ligament uterine suspension with A&P repair. This worked for her until 2023. She then developed recurrent uterine prolapse and cystocele. Underwent surgery by Dr. Rodriguez in March 2024NASEEM, BSO, anterior repair. She was seen 6 months later in September 2024 with vaginal vault prolapse. Referred for consultation She has a vaginal bulge that she feels but does not see. She has prolapse symptoms of heaviness and pressure, strains for bowel movements feels like she does not empty her bladder completely, and occasionally has to splint for bowel movements. She is considering surgery for the prolapse. She has been using a ring pessary but does not really like using it. She is not using it today. She also has stress incontinence that varies from twice a day to several times a day. She has allergies and a severe cough when that occurs, and she leaks several times a day when her allergies are bothering her. See triggers below. She only occasionally has any urgency leakage. She uses 1 mini pad per day. She has tried Kegel's. The ring pessary for her prolapse did not seem to impact her incontinence. She has nocturia, waking up 4 times at night to void, with moderate urgency, daytime she does better, only voids every 2-3 hours. Has a bowel movement daily but needs to use stool softeners and senna prior hyst -??? yes -x4 c-sec -0 Pelvic Floor Review of Systems: (HPI) Stress Urinary Incontinence symptoms (PRAVEEN): Twice a day sometimes many times a day Triggers include:??? [cough, sneeze, laugh, exercise, ? Urge Incontinence symptoms (Urge UI): Occasional Triggers include: Full bladder with urge ? Pads: She wears 1 mini pad a day Overactive Bladder symptoms (OAB):? ? Frequency:?? Every 2-3 hours Nocturia:?? X4 Urgency:?? Moderate Prior incontinence treatment includes:? Medical:? No Surgical:? No? Kegels:?? Yes Physical therapy:?No? Pessary:?She use this for the prolapse. Reports it did not change her incontinence. Diet / Fluids: Fluid restriction:? No Excessive fluids:?No Pain symptoms:? Painful bladder:???No Dysuria:??? No Dyspareunia:? No Dysmenorrhea:? No Urinary Risk Factors UTI?s, recurrent:? No Hematuria:? No Kidney Stones:?No? Tobacco use:? No Pelvic Organ Prolapse (POP) symptoms:?? Bulge:?Yes Pressure and /or? Heaviness:?Yes Splint for defecation or voiding:???Yes Voiding dysfunction: Abnormal stream:? No Strain to void:? No Incomplete emptying: Yes Voiding difficulty:? No Retention:??? No Bowel Function: Constipation:?Yes Strain to defecate:?Yes Fiber:?Yes Laxatives:?Yes Fecal Incontinence:? Liquid stool:? No Solid stool:?No?? Sexual function Sexually active: Yes Incontinence with sex:? No ? General Review of Systems: Constitutional, CV, Endo, Musc-skel, Eyes, Cancer, Skin, Breast, GI, Heme/Lymph, Psych, Urinary, Neuro, Flight Service Agent, Resp, Sexual:??? Pertinent positives listed above in HPI All others reviewed and negative. All reviewed on patient questionnaire.? . . PFSH Medical History Anesthesia complication Right shoulder pain (06/2019) Primary insomnia Former smoker Osteoporosis Cervical spine fracture PAF (paroxysmal atrial fibrillation) Tachycardia Mitral valve prolapse Chronic pain Fibroids Hemorrhoids HLD (hyperlipidemia) HTN (hypertension) Cystocele and rectocele with incomplete uterovaginal prolapse Surgical History History of esophagogastroduodenoscopy (EGD) (06/27/23) History of vaginal surgery (~09/2019) History of carpal tunnel release of both wrists S/P cervical spinal fusion (2010) S/P cervical spinal fusion (2000) Allergies oxybutynin - dry mouth Medications carisoprodol 350 mg tablet 1 tab PO TID PRN Pain, Moderate 10/30/17 [History Confirmed 11/03/24] cetirizine 10 mg tablet (Zyrtec) 1 tab PO DAILY 10/30/17 [History Confirmed 11/03/24] cholecalciferol (vitamin D3) 25 mcg (1,000 unit) capsule (Vitamin D3) 1,000 unit PO DAILY 10/30/17 [History Confirmed 11/03/24] coenzyme Q10 100 mg capsule (CoQ-10) 100 mg PO DAILY 10/30/17 [History Confirmed 11/03/24] fluticasone propionate 50 mcg/actuation nasal spray,suspension 1 spray intranasal DAILY PRN Congestion 10/30/17 [History Confirmed 11/03/24] gabapentin 300 mg capsule 1 cap PO BID 10/30/17 [History Confirmed 11/03/24] ibuprofen 800 mg tablet 800 mg PO TID PRN Pain, Moderate 10/30/17 [History Confirmed 11/03/24] losartan 25 mg tablet 50 mg PO DAILY 10/30/17 [History Confirmed 11/03/24] omega 9-grj-qvl-fish oil 1,000 mg (120 mg-180 mg) capsule (Fish Oil) 1,000 mg PO DAILY 10/30/17 [History Confirmed 11/03/24] zolpidem 10 mg tablet 10 mg PO BEDTIME 10/30/17 [History Confirmed 11/03/24] metoprolol succinate 100 mg tablet,extended release 24 hr 150 mg PO DAILY 02/12/20 [History Confirmed 11/03/24] amlodipine 5 mg tablet 5 mg PO BID 02/08/24 [History Confirmed 11/03/24] celecoxib 200 mg capsule 200 mg PO DAILY 03/17/24 [History Confirmed 11/03/24] omeprazole 40 mg capsule,delayed release 40 mg PO BID 03/17/24 [History Confirmed 11/03/24] rosuvastatin 40 mg tablet 80 mg PO DAILY 03/17/24 [History Confirmed 11/03/24] estradiol 0.05 mg/24 hr semiweekly transdermal patch 1 patch topical 2XW #24 ea 09/22/24 [Rx Confirmed 11/03/24] Social History household members: spouse Tobacco & Substance Use Smoking Status: Former smoker alcohol intake: current Exam Vitals Height 5 ft 7 in Weight 155 lb BMI 24.3 BP 110/60 Blood Pressure Location Lt brachial Position Sitting Pulse 63 Pulse Source Monitor Pulse Oximetry (%) 94 Oxygen Delivery Method room air General: healthy, alert, coherent, no acute distress, cooperative, nontoxic Pulmonary: normal breathing, no distress Abdomen: soft, no mass, non-distended, no hernia, non-tender Skin: Scars on Abd: Lap Vulva: Normal labia majora, labia minora, introitus, and clitoris, non-tender Urethra meatus: normal, no discharge Perineum: Normal, non-tender Urethra: No mass, non-tender Bladder: no mass, non-tender Vagina: No lesions, no discharge, mild atrophy, non-tender Prolapse stage II cystocele and vaginal vault Insertion of a large swab corrects all of her prolapse i ndicating sacral colpopexy we will correct the prolapse Levators: Non-tender, 4-5/ 5 kegel squeeze Hysterectomy Bimanual: no mass, no adnexal mass, non-tender Anus: No lesion, non-tender, no hemorrhoid Empty Cough Stress test: Positive, so she has stress incontinence PVR: 50 mL by catheter Urethral angle hypermobile: Yes POP-Q Exam: Aa: 0 Ba: 0 Ap: -2 Bp: -2 C: -5 D: Not applicable TVL: 9 GH: 2.5 PB: 3.5 Introitus size: X2 fingerbreadths Cystocele stage: Stage II Rectocele stage: Stage I Uterine/Vault Prolapse Stage: Stage II Assessment & Plan 1. Vaginal vault prolapse: 2. cystocele 3. stress incontinence Assessment and Plan ? Patient counseled regarding above conditions.? Educational materials given to patient. 1. Pelvic Organ Prolapse -stage II cystocele and vaginal vault prolapse, recurrent This diagnosis and its etiology was discussed with the patient.? Treatment options were discussed including: expectant management, pessary trial, and surgical intervention. We briefly discussed risks and benefits of surgery. All surgery for prolapse is not 100% successful and there is a chance of recurrence or failure. She has been using a pessary, does not not wish to use it longer she desires surgery my recommendation = robotic laparoscopic sacral colpopexy, mid urethral sling, cystoscopy see below for counseling 2. Stress Urinary Incontinence with urethral hypermobility:? This diagnosis was discussed with the patient. The etiology was explained. Treatment options were discussed including expectant management, pelvic floor exercises, pessary trial, and surgical intervention (mid-urethral sling, Manzano urethropexy, P-V sling, Lizbeth urethral plication, urethral bulking injection).? Risks and benefits of surgery were briefly outlined. We discussed that she is a candidate for a Midurethral Sling as treatment of her stress incontinence. Success rate of being dry from stress incontinence is about 80-85%; another 10-15% of patients are markedly improved but not cured;? 1-2% will fail, and 1-2% will need the sling cut because it is too tight.? The risk of temporary urinary retention requeiring temporary catheterization is about 15- 20%; risk of urinary retention requiring sling release procedure is about 1-2%, as noted above.? We discussed the small 1-3% of mesh erosion as well as the small risk of de moses urgency.? This procedure is not designed to treat Urge Incontinence symptoms; however, 30-50% of patients with overactive bladder/ urgency urinary incontinence will have improvement in these symptoms, in 30% these symptoms will stay the same, and in 20-30% these symptoms will worsen. She desires a sling with the prolapse repair see below for counseling 3. OAB She has some overactive bladder symptoms in terms of urgency and nocturia and occasional urge incontinence, with out daytime frequency. We talked about treatment options for this. Handout was given. For now, we will just manage with observation. Medications declined. These symptoms may improve after surgery for the prolapse. Reassess postop Date of procedure:?? Jan 15, 2025 Preoperative diagnosis:? Cystocele, vaginal vault prolapse Stress incontinence Planned Procedure:?? Robotic laparoscopic sacral colpopexy Mid urethral sling Cystoscopy Postop Meds Tylenol 1000 mg, ?3 times a day? celcoxib 200 mg a day Oycodone 5 mg,? take 1 pill every 4-6 hr as needed, # 20? Colace,? 1 pill BID, for constipation also takes gabapentin 300 mg bid, can increase up to 600 mg bid zofran 4-8 mg a d, #30, RF x 1 scopolamine patch also Patient counseled extensively about the Risks, Benefits, and Alternatives to surgery.? She was offered the opportunity to ask any questions, and all questions were answered. ? Surgical Risks include: Bleeding, Hemorrhage, Transfusion, Infection (especially wound or bladder), Injury to adjacent organs (especially bladder, ureter, bowel, blood vessels, nerves), Postop or Chronic Pain, need for Reoperation, and Life-threatening event (especially M.I., CVA, PE, DVT). Procedure Risks include: Failure to Cure condition, Recurrence of condition months or years later, Urinary incontinence, Voiding dysfunction or Urinary Retention with prolonged catheter use, Poor wound healing, Erosions of any mesh or graft used, Dyspareunia, Vaginal scarring or narrowing, Need for additional surgery (immediate or delayed).? The expected cure and improvement and failure rates were discussed. Patient counseled to avoid the following for 6 weeks after surgery: (1) Impact sports (like running or jumping), walking and stairs OK (2) Lifting over 20# (3) Sexual intercourse No limits after 6 weeks. ? Good exercise tolerance, > 4 Mets. Her current medications were reviewed, and instructions given over which to use and which to discontinue before surgery.? Post-operative care instructions reviewed.? We discussed post-operative pain: Pain should be in the mild-moderate range, but can be moderate-severe for the first few days.?? Prescriptions will typically be given for (1) acetaminophen (Tylenol) and (2) non-steroidal anti-inflammatory drug (NSAID, like Motrin or Naprosyn), use both together, around the clock. Prescription will also be given for a (3) narcotic pain medication. Use the narcotic as needed, as a booster to the Tylenol and NSAID. You might need 0-4 narcotic pills a day typically. The narcotic will only be needed for a few days.?? Gradually use less of the narcotic, but continue the Tylenol and NSAID.? After a few days, the narcotic should no longer be needed, and only the Tylenol and NSAID will be needed.? Warm packs or cold packs can also be used for pain.??Do not drive for as long as you are using the narcotic pain medication? - this should only be a few days.?? Constipation is associated with use of narcotic pain medications, and can be improved with use of a stool softener, or fiber, or a mild laxative.? If you are sent home from the hospital with a Kunz Catheter in place:? please call the office on the day after surgery We will usually remove the catheter 2-4 days after surgery: a. You will perform an at home Kunz catheter removal -or- b. You will come in to the office for a voiding trial, (For some unusual surgeries, we might leave the catheter in for up to 2 weeks, and then remove it.) Instructions for at home Kunz catheter removal..... For at-home Kunz catheter removal, this can be done on postop day 2 or 3 or 4, depending on various factors. 1. At 6 or 7 a.m., have the patient cut the Kunz catheter with scissors, while standing in a shower or bath tub. a. Cut the catheter right in the middle of the tubing, about 6 inches from the body. b. The sterile water that is inside the Kunz balloon will leak all over the floor of the shower or bath tub. This is expected. c. The catheter will either fall out of the urethra, or just gently pull on it and it will come out. 2. Now, the bladder will gradually fill up over the next few hours. 3. Go ahead and empty the bladder when you feel an urge to void. Please note how strong the urine stream is. a. If the urine stream is normal or close to normal, then everything is good to go. b. If the urine stream is slow or you can not void, then return to the clinic in the afternoon. We will place another Kunz catheter. We will repeat the voiding trial in 3-4 days. All of her questions were answered Raymon Sharp MD UroGynecology & Pelvic Reconstructive Surgery [facility] Medical History (Updated 01/19/25 @ 14:57 by Nell Dodd RN) PONV (postoperative nausea and vomiting) Right shoulder pain (06/2019) Primary insomnia Former smoker Osteoporosis Cervical spine fracture PAF (paroxysmal atrial fibrillation) Tachycardia Mitral valve prolapse Chronic pain Fibroids Hemorrhoids HLD (hyperlipidemia) HTN (hypertension) Cystocele and rectocele with incomplete uterovaginal prolapse Surgical History (Updated 01/07/25 @ 14:41 by Nell Dodd RN) History of laparoscopic-assisted vaginal hysterectomy (03/17/24) History of esophagogastroduodenoscopy (EGD) (06/27/23) History of vaginal surgery (~09/2019) History of carpal tunnel release of both wrists S/P cervical spinal fusion (2010) S/P cervical spinal fusion (2000) Social History household members: spouse Smoking Status: Former smoker alcohol intake: current Meds Home Medications and Allergies Home Medications ?Medication ?Instructions ?Recorded ?Confirmed ?Type carisoprodol 350 mg tablet 1 tab PO TID PRN Pain, Mode rate 10/30/17 11/03/24 History cetirizine 10 mg tablet (Zyrtec) 1 tab PO DAILY 11/03/24 History cholecalciferol (vitamin D3) 25 1,000 unit PO DAILY 11/03/24 History mcg (1,000 unit) capsule (Vitamin D3) coenzyme Q10 100 mg capsule 100 mg PO DAILY 10/30/17 0 11/03/24 History (CoQ-10) fluticasone propionate 50 1 spray intranasal DAILY PRN 10/30/17 11/03/24 History mcg/actuation nasal Congestion spray,suspension gabapentin 300 mg capsule 1 cap PO BID 10/30/17 History ibuprofen 800 mg tablet 800 mg PO TID PRN Pain, Mode rate 10/30/17 11/03/24 History losartan 25 mg tablet 50 mg PO DAILY 10/30/1710/08 History omega 3-udo-guf-fish oil 1,000 mg 1,000 mg PO DAILY 11/03/24 History (120 mg-180 mg) capsule (Fish Oil) zolpidem 10 mg tablet 10 mg PO BEDTIME 10/30/17 History metoprolol succinate 100 mg 150 mg PO DAILY 02/12/20 0 11/03/24 History tablet,extended release 24 hr amlodipine 5 mg tablet 5 mg PO BID 02/08/24 5 History celecoxib 200 mg capsule 200 mg PO DAILY 03/17/24 History omeprazole 40 mg capsule,delayed 40 mg PO BID 03/17/24 11/03/24 History release rosuvastatin 40 mg tablet 80 mg PO DAILY 03/17/2410/08 History estradiol 0.05 mg/24 hr semiweekly 1 patch topical 2XW #24 ea 09/22/24 11/03/24 Rx transdermal patch ondansetron 4 mg disintegrating 4 - 8 mg (1 - 2 x 4 mg ) PO Q8H #30 12/31/24 12/31/24 Rx tablet tabs oxycodone 5 mg tablet 5 mg PO Q8H PRN pain #20 tab s 12/31/24 12/31/24 Rx Allergies Allergy/AdvReac Type Severity Reaction Status Date / Time fentanyl AdvReac Severe Nausea Verified 12/31/24 09:41 oxybutynin AdvReac Severe dry mouth Verified 12/31/24 09:41 Assessment & Plan Time-Based Coding :: [TOTAL MINUTES] spent with patient and on the chart (including review of chart, obtaining history, exam, reviewing outside data, placing orders, documenting exam and treatment plan, and counseling patient) on [DATE].
[2025-01-30] MEDS: ACETAMINOPHEN 325 MG TABLET 975 MG PO (06:48)
[2025-01-30] MEDS: LACTATED RINGERS 1,000 ML 42 ML IV ×3 (06:48→11:33)
[2025-01-30] MEDS: SCOPOLAMINE 1 PATCH TOP (06:48)
[2025-01-30] MEDS: PHENAZOPYRIDINE 100 MG TABLET 200 MG PO (06:48)
[2025-01-30 07:10] VITALS: BP 114/78; PULSE 71; RESP 20; TEMP 36.2; O2SAT 95
--- NOTE | 2025-01-30 07:42 | PM.PREOP ---
Pre-operative Note Interval Note History & Physical reviewed/Exam performed by Physician: Yes Changes to H&P: No
--- NOTE | 2025-01-30 08:34 | SUR.OPER ---
Lithotomy on padded OR bed. [place] Pad Positioner under torso, IV sites padded and protected, purple strap across chest. Head on pillow, arms padded and tucked at sides, prone pillow over face per anesthesia to protect patient. Legs secured in padded yellow fins stirrups.
[2025-01-30] MEDS: LIDOCAINE 1% 20 ML INJ (08:58)
[2025-01-30] MEDS: FUROSEMIDE 40 MG/4 ML VIAL 5 MG IV (11:31)
--- NOTE | 2025-01-30 11:52 | PM.GYNOP.1 ---
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 Raymon Sharp MD Acquisitions Editor:?? none Pre-Op Diagnosis:?? recurrent stage 2 Vaginal vault prolapse, cystocele, stress urinary incontinence Post-Op Diagnosis:?? Same? , pelvic adhesions from prior surgery (1st: SSLF, A&P repair ; 2nd, LAVH, BSO, Ant repair) Procedure:?? Robotic assisted laparoscopic sacral colpopexy, TVT sling, cystoscopy Findings (brief): 1. 5 ports, usual fashion.?? No Adhesions of omentum or small bowel. Adhesions of the the Sigmoid colon to the vaginal cuff and sidewalls were lysed sharply.? Prior hyst, BSO. The vagina was densely adhesed to the bladder and rectum, and the prior permanent prolene SSLF sutures were removed. Difficult vaginal dissection. short vaginal length from prior surgery/? 2.? Restorelle mesh cut to 4 cm Ant and 6 cm Post, attached to vagina with sutures of 2-0 vicyrl.?? Excellent support of all 3 compartments.? 3.? TVT sling placed at mid-urethra, tension-free.? 4.? Cystoscopy with normal bladder, ureters, urethra, no trocar injury, bilateral ureteral jets.? Date of Surgery:? January 30, 2025 Complications:? None Specimens:? None Anesthesia Technique: General endotracheal Estimated Blood Loss (mls):? 100 Blood Replacement (mls):? None Drains:? Ruiz Condition:? Stable Procedure in detail: After consent was confirmed, the patient was taken to the operating room and?positioned with the [place] Pad on the OR bed, and then placed under general anesthesia without incident. ?Sequential compression devices were in place and active. ?She received perioperative antibiotics. ?The arms were tucked and her legs were placed in the dorsal lithotomy position using the Florentin stirrups. ??She was then prepped and draped in the usual sterile fashion. ?An examination under anesthesia was consistent with the preoperative assessment. ?A three-way 16 mexican ruiz catheter was placed. ?Attention was turned to the abdomen. All 5 trocar sites were injected with 0.25% Marcaine with epinephrine prior to incision. A supra-umbilical 8?mm port was placed 2-3 cm above the umbilicus: a 8?mm incision was made, the Veress needle was placed, and pneumoperitoneum was achieved at low flow of 5, reaching a pressure of about 12, with 2-3 liters of CO2 gas. ?The abdominal wall was tented out to avoid any injury to underlying structures, and the trocar was introduced into the abdomen with ease, flow turned up to 40, pressure set at 12. ??Three?additional 8 mm robotic ports were placed, along the same line across the abdomen: ?? right lateral abdomen, left mid abdomen, left lateral abdomen,?under direct visualization atraumatically.??An additional assistant professor of religion 8 mm port was placed in the RUQ.?The patient was placed into steep Trendelenberg. ?The DV5?robot was Docked from a side-dock approach, using 3 arms. ?During the dissection, monopolar scissors and bipolar [place]?forceps were used, and during suturing, these were replaced with 2 needle drivers. ?The [employer] grasper was used at the 3rd arm for surgical assistance. ?The 4th port was for the surgical attendant (passing sutures and suction / irrigation). ?At this point, I went to the robotic console to operate the robot.? ?The sigmoid was retracted, and the sacral promontory was identified, and the ureters were identifed lateral to the intended surgical planes.? Findings as noted above. The sigmoid was dissected as above ? The bladder was dissected off the vagina for a distance of 4 cm, and the vagina was dissected off the posterior peritoneum, most of the way down the posterior vagina, approx 6 cm. ?Very difficult dissection due to vaginal scarring from prior surgery. ?The [facility] Sacral Colpopexy tip with the Nieves Arch was used to expose the vagina for dissection. ?Retrograde fill of the bladder facilitated the dissection. ?The peritoneum over the sacral promontory was incised and the dissection was carried down into the pelvis. ?The loose areolar connective tissue overlying the sacral promontory was dissected until the sacrum was clearly identified. ?The anterior arm of the Y-polypropylene mesh was fashioned as noted above, and sutured to the anterior vagina with several interrupted 2-0 vicryl sutures. ?The posterior arm of the mesh was fashioned as noted above, and sutured to the posterior vagina with several interrupted 2-0 vicryl sutures. ?The mesh tail was grasped to create a Y shape, cut to the appropriate length, and then attached to the sacral promontory in a tension-free manner, using 2 sutures of 2-0 Ethibond (permanent suture). The sacral peritoneum was closed over the mesh with a running 2-0 PDS / V-Lock suture, and then continued to close the peritoneum over the vaginal part of the mesh. I left the console and scrubbed and gowned and returned to the OR table. The robot was undocked.? All port sites were inspected for hemostasis, and pneumoperitoneum released. The skin incisions were reapproximated with 4-0 monocryl, and then dermabond was placed. ?Attention was turned to the remainder of the vagina where excellent apical support was appreciated. ?Cystourethroscopy was performed which revealed bilateral ureteral efflux of pyridium and no evidence of injury or suture material within the bladder urethra. With the Ruiz catheter in place, the anterior vaginal mucosa beneath and lateral to the urethra was injected with 10-20 cc of? 0.5% lidocaine / epinephrine 1:200,000.? A 2-3 cm midline incision was made at the level of the midurethra with a scapel. Metzenbaum scissors were used to dissect the vagina from the urethra and then create tunnels beneath the vaginal mucosa up toward the pubic bone on each side.? A marking pen was used to elba the skin just above the pubic bone and 2 cm from the midline bilaterally, and two small 8-10 mm incisions were made on the suprapubic skin.? The trocar was passed from the right vaginal tunnel, behind the pubic bone, to the right suprapubic incision, and this was repeated on the left side.? The Ruiz catheter was removed, and cystoscopy was performed with a 70 degree lens. There was no trocar injury, and the bladder, ureters, and urethra were normal.? The Ruiz catheter was reinserted.? The sling was pulled into position in a tension-free manner, and a Lizbeth clamp was easily passed between the sling and the urethra.? The plastic sheaths were removed to anchor the sling, and tension was checked again. The ends of the sling were trimmed just below the skin, and the skin incisions were cleaned and closed with dermabond. The vaginal incision was closed with 2-0 vicryl in a running fashion. Sponge, needle and instrument count was correct.? The patient tolerated the procedure well and was taken to the recovery room in stable condition. Raymon Sharp MD UroGynecology & Pelvic Reconstructive Surgery [place], [place] Applied: implant(s) (restorelle SC mesh, TVT sling mesh)
[2025-01-30 11:58] VITALS: BP 101/57; PULSE 70; RESP 22; TEMP 37.1; O2SAT 95
[2025-01-30 12:07] VITALS: BP 115/68; PULSE 70; RESP 22; TEMP 37; O2SAT 95
[2025-01-30] MEDS: ONDANSETRON 4 MG/2 ML INJ IV ×2 (12:13→14:30)
[2025-01-30] MEDS: KETOROLAC 30 MG/ML VIAL 15 MG IV (12:14)
[2025-01-30 12:25] VITALS: BP 127/75; PULSE 66; RESP 18; TEMP 36.9; O2SAT 97
[2025-01-30 13:47] VITALS: BP 102/61; PULSE 62; RESP 16; TEMP 36.3; O2SAT 95
--- NOTE | 2025-01-30 14:11 | SUR.PHASEII ---
Voiding trial started; assisted patient to bathroom to void.
[2025-01-30 14:44] VITALS: BP 116/72; PULSE 56; RESP 16; TEMP 36.9; O2SAT 92
--- NOTE | 2025-01-30 15:24 | SUR.PHASEII ---
Discharged patient home in stable condition with ; all D/C instructions reviewed and v/u. All belongings returned. Incisions remain clean, dry and intact.
== END 2025-01-30 15:32 | disposition home or self-care (01) ==
PROVIDERS: PCP Internal Medicine; Referring Provider Obstetrics & Gynecology Gynecology; Visit Provider Obstetrics & Gynecology Gynecology
PROC: 0USG4ZZ Reposition Vagina, Percutaneous Endoscopic Approach (ICD-10-PCS; CPT 57425; principal; 2025-01-30 07:45)
PROC: 0TSD0ZZ Reposition Urethra, Open Approach (ICD-10-PCS; CPT 57425; 2025-01-30 07:45)
DX: N99.3 Prolapse of vaginal vault after hysterectomy (principal); N99.4 Postprocedural pelvic peritoneal adhesions; R35.1 Nocturia; N39.46 Mixed incontinence; N32.81 Overactive bladder; R33.9 Retention of urine, unspecified; N36.41 Hypermobility of urethra; R35.0 Frequency of micturition; Z90.710 Acquired absence of both cervix and uterus; Z87.891 Personal history of nicotine dependence
CPT/HCPCS: 57425; 57288; C1781; S2900; A9270; C1771; J0689; J1100; J1171; J1885; J1938; J2405; J2704; J3010; J3475; J3490; J7120